=== PATIENT | female | born 1950 | race Two or more races ===

== ENCOUNTER 2018-10-20 14:43 | Inpatient (IN) | payer MEDICARE, MEDICAID ==
[~2018-10-20] VITALS: Ht 160 cm; Wt 68.6 kg
[2018-10-20 17:56] VITALS: BP 113/73
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
[2018-10-20] MEDS ORDERED: ACID1TAB13 PO (20:42)
[2018-10-20] MEDS ORDERED: FURO80TA72 PO (20:42)
[2018-10-20] MEDS ORDERED: MELA3TAB2 PO (20:42)
[2018-10-20] MEDS ORDERED: ERGO500027 PO (20:42)
[2018-10-20] MEDS ORDERED: MINE120C TP (20:42)
[2018-10-20] MEDS ORDERED: MIRT15TA3 PO (20:42)
[2018-10-20] MEDS ORDERED: INSU100I13 SQ (20:42)
[2018-10-20] MEDS ORDERED: LEVO750T31 PO (20:51)
[2018-10-20] MEDS ORDERED: SENN8.6T67 PO (21:32)
[2018-10-20] MEDS ORDERED: ZIPR20CA2 PO (21:32)
[2018-10-20] MEDS ORDERED: CEPH500C PO (21:32)
[2018-10-20] MEDS ORDERED: CLON0.5T PO (21:32)
[2018-10-20] MEDS ORDERED: LEVO88TA43 PO (21:32)
[2018-10-20] MEDS ORDERED: ACET325T9 PO (21:32)
[2018-10-20] MEDS ORDERED: POTA20TA4 PO (21:32)
[2018-10-20] MEDS ORDERED: SENNOSIDES 8.6 MG TABLET PO PRN (21:45)
[2018-10-20] MEDS ORDERED: ACETAMINOPHEN 325 MG TABLET PO PRN (22:30)
[2018-10-20] MEDS ORDERED: METHYL SALICYLATE/MENTHOL TOPICAL OINTMENT 29GM TUBE. TP PRN (22:30)
[2018-10-20] MEDS ORDERED: MAG HYDROX/AL HYDROX/SIMETH 30 ML ORAL.SUSP PO PRN (22:30)
[2018-10-20] MEDS ORDERED: MAGNESIUM HYDROXIDE 2,400 MG/30 ML ORAL.SUSP. PO PRN (22:30)
--- NOTE | 2018-10-20 22:32 | PDOC ---
Exam Note: Christopher Note: Please also refer to the separate dictated note~for this date of service dictated separately. Discussed the patient with Nursing staff reviewed the chart.~Reviewed interim history and current functioning. Reviewed vital signs,~ Labs/ Radiology~and current medications noted below. Continue current treatment with the changes noted in the dictated addendum note Assessment: Vital Signs: Vital Signs Date Time Temp Pulse Resp B/P (MAP) Pulse Ox O2 Delivery O2 Flow Rate FiO2 10/20/18 17:56 97.3 108 18 113/73 (86) 100 Labs: Laboratory Tests Test 10/20/18 19:50 Glucose Level 159 mg/dL (70-99) H Current Medications: Meds: Current Medications Acetaminophen (Tylenol) 650 mg PRN Q4HRS PRN PO PAIN; Start 10/20/18 at 21:45 Insulin Glargine (Lantus) 10 units QHS SQ ; Start 10/21/18 at 21:00 Levothyroxine Sodium (Synthroid) 88 mcg DAILY06 PO ; Start 10/21/18 at 06:00 Multi-Ingred Cream/Lotion/Oil/ Oint (Hydrocerin) 1 lori HS TP ; Start 10/21/18 at 21:00 Potassium Chloride (Klor-Con) 20 meq DAILY PO ; Start 10/21/18 at 09:00 Lactobacillus Rhamnosus (Culturelle) 1 cap DAILY PO ; Start 10/21/18 at 09:00 Cephalexin HCl (Keflex) 500 mg QID PO ; Start 10/21/18 at 09:00; Status UNV Vitamin D (Vitamin D3) 50,000 unit WEEKLY PO ; Start 10/27/18 at 09:00 Furosemide (Lasix) 80 mg DAILY PO ; Start 10/21/18 at 09:00 Levofloxacin (Levaquin) 750 mg DAILY PO ; Start 10/21/18 at 09:00; Status UNV Sennosides (Senna) 8.6 mg PRN BID PRN PO CONSTIPATION; Start 10/20/18 at 21:45 Clonazepam (KlonoPIN) 0.5 mg PRN Q6HRS PRN PO ANXIETY / AGITATION; Start at 21:45 Melatonin 6 mg HS PO ; Start 10/21/18 at 21:00 Mirtazapine (Remeron) 15 mg QHS PO ; Start 10/21/18 at 21:00 Ziprasidone (Geodon) 60 mg BID PO ; Start 10/21/18 at 09:00 Active Scripts Active Reported Cephalexin 500 Mg Capsule 500 Mg PO QID Geodon (Ziprasidone Hcl) 20 Mg Capsule 20 Mg PO BID Klor-Con M20 (Potassium Chloride) 20 Meq Tab.er.prt 20 Meq PO DAILY Levoxyl (Levothyroxine Sodium) 88 Mcg Tablet 88 Mcg PO DAILY Sennosides 8.6 Mg Tablet 8.6 Mg PO BID Tylenol (Acetaminophen) 325 Mg Tablet 650 Mg PO PRN Q4HRS PRN Klonopin (Clonazepam) 0.5 Mg Tablet 0.5 Mg PO PRN Q6HRS PRN Levaquin (Levofloxacin) 750 Mg Tablet 750 Mg PO DAILY Eucerin Creme (Mineral Oil/Petrolatum,White) 120 Gm Cream..g. 120 Gm TP HS Lasix (Furosemide) 80 Mg Tablet 80 Mg PO DAILY Floranex Tablet (Acidophilus/Bulgaricus) 1 Each Tablet 1 Each PO DAILY Vitamin D2 (Ergocalciferol (Vitamin D2)) 50,000 Unit Capsule 50,000 Unit PO WEEKLY Lantus Solostar (Insulin Glargine,Hum.rec.anlog) 100 Unit/1 Ml Insuln.pen 10 Unit SQ QHS Melatonin 3 Mg Tablet 6 Mg PO HS PRN Mirtazapine 15 Mg Tablet 15 Mg PO HS I have reviewed the current psychotropics carefully including drug interactions. Risk benefit ratio favors no change other than as noted in my dictated progress note. Diagnosis: Problems: (1) Anxiety disorder (2) Dementia in Alzheimer's disease with delusions (3) Schizoaffective disorder, chronic condition with acute exacerbation (4) Impulse control disorder FORTUNATO ECHEVARRIA MD Oct 20, 2018 22:32
[2018-10-20] MEDS: clonazePAM 0.5 MG TABLET PO PRN (23:41)
[2018-10-20] MEDS ORDERED: INSULIN GLARGINE 300 UNITS/3 ML INSULN.PEN. SQ ONE (23:49)
[2018-10-21] MEDS: INSULIN GLARGINE 300 UNITS/3 ML INSULN.PEN. SQ SCH ×2 (00:05→22:15)
[2018-10-21] MEDS: ACETAMINOPHEN 325 MG TABLET PO PRN (00:06)
[2018-10-21] MEDS: LEVOTHYROXINE 88 MCG TABLET PO SCH (05:52)
[2018-10-21] MEDS ORDERED: levoFLOXacin 750 MG TABLET PO SCH (06:00)
[2018-10-21 06:18] VITALS: BP 114/67
[2018-10-21] MEDS: ZIPRASIDONE 60 MG CAPSULE. PO SCH ×2 (09:22→19:49)
[2018-10-21] MEDS: CEPHALEXIN 250 MG CAPSULE PO SCH ×4 (09:22→19:50)
[2018-10-21] MEDS: LACTOBACILLUS RHAMNOSUS GG 1 CAPSULE. PO SCH (09:22)
[2018-10-21] MEDS: FUROSEMIDE 80 MG TABLET PO SCH (09:23)
[2018-10-21] MEDS: POTASSIUM CHLORIDE 20 MEQ TABLET.ER. PO SCH (09:23)
[2018-10-21 10:02] LABS: BASO % 1 % (0-3); EOS # 0.2 x10^3/uL (0.0-0.7); EOS % 4 % (0-3); HEMATOCRIT 30.9 % (36.0-47.0); LYMPH # 1.4 x10^3/uL (1.0-4.8); LYMPH % 27 % (24-48); MEAN CORPUSCULAR HEMOGLOBIN 31 pg (25-35); MEAN CORPUSCULAR HGB CONC 33 g/dL (31-37); MEAN CORPUSCULAR VOLUME 94 fL (79-100); MONO # 0.4 x10^3/uL (0.0-1.1); MONO % 7 % (0-9); NEUT # 3.4 x10^3uL (1.8-7.7); NEUT % 62 % (31-73); PLATELET COUNT 257 x10^3/uL (140-400); RED BLOOD COUNT 3.29 x10^6/uL (3.50-5.40); RED CELL DISTRIBUTION WIDTH 14.5 % (11.5-14.5); WHITE BLOOD COUNT 5.4 x10^3/uL (4.0-11.0)
[2018-10-21 10:15] LABS: ALBUMIN 2.6 g/dL (3.4-5.0); ALBUMIN/GLOBULIN RATIO 0.6 (1.0-1.7); CALCIUM 8.9 mg/dL (8.5-10.1); CREATININE 1.6 mg/dL (0.6-1.0); GFR 31.9; MAGNESIUM 1.7 mg/dL (1.8-2.4); POTASSIUM 4.4 mmol/L (3.5-5.1); TOTAL BILIRUBIN 0.2 mg/dL (0.2-1.0); TOTAL PROTEIN 6.9 g/dL (6.4-8.2)
[2018-10-21 14:47] LABS: THYROID STIM HORMONE (TSH) 9.258 uIU/mL (0.358-3.740)
[2018-10-21 16:20] VITALS: BP 124/84
[2018-10-21 19:14] LABS: THYROXINE 7.3 ug/dL (4.5-12.0)
[2018-10-21] MEDS: DIVALPROEX ER 500 MG TAB.ER.24H PO SCH (19:54)
[2018-10-21] MEDS: MIRTAZAPINE 15 MG TABLET PO SCH (19:54)
[2018-10-21] MEDS: MELATONIN 3 MG TABLET PO SCH (19:56)
[2018-10-21] MEDS ORDERED: INSULIN GLARGINE 300 UNITS/3 ML INSULN.PEN. SQ SCH (21:00)
[2018-10-21] MEDS: PENICILLIN G BENZATHINE LA 1,200,000 UNIT/2 ML DISP.SYRIN. IM SCH (22:14)
[2018-10-21] MEDS: MINERAL OIL/PETROLATUM TOPICAL CREAM 113GM JAR. TP SCH (22:16)
--- NOTE | 2018-10-21 22:38 | PDOC ---
Exam Note: Christopher Note: Please also refer to the separate dictated note~for this date of service dictated separately.~Patient seen individually. Discussed the patient with Nursing staff reviewed the chart.~Reviewed interim history and current functioning. Reviewed vital signs,~Labs/ Radiology~and current medications noted below. Continue current treatment with the changes noted in the dictated addendum note Assessment: Vital Signs: Vital Signs Date Time Temp Pulse Resp B/P (MAP) Pulse Ox O2 Delivery O2 Flow Rate FiO2 10/21/18 16:20 97.9 106 18 124/84 (97) 100 I&O Intake and Output 10/21/18 07:01 Intake Total 600 ml Balance 600 ml Intake Oral 600 ml Labs: Laboratory Tests Test 10/21/18 07:26 10/21/18 09:30 10/21/18 11:40 10/21/18 16:55 Glucose (Fingerstick) 67 mg/dL (70-99) L 147 mg/dL (70-99) H 90 mg/dL (70-99) White Blood Count 5.4 x10^3/uL (4.0-11.0) Red Blood Count 3.29 x10^6/uL (3.50-5.40) L Hemoglobin 10.0 g/dL (12.0-15.5) L Hematocrit 30.9 % (36.0-47.0) L Mean Corpuscular Volume 94 fL (79-100) Mean Corpuscular Hemoglobin 31 pg (25-35) Mean Corpuscular Hemoglobin Concent 33 g/dL (31-37) Red Cell Distribution Width 14.5 % (11.5-14.5) Platelet Count 257 x10^3/uL (140-400) Neutrophils (%) (Auto) 62 % (31-73) Lymphocytes (%) (Auto) 27 % (24-48) Monocytes (%) (Auto) 7 % (0-9) Eosinophils (%) (Auto) 4 % (0-3) H Basophils (%) (Auto) 1 % (0-3) Neutrophils # (Auto) 3.4 x10^3uL (1.8-7.7) Lymphocytes # (Auto) 1.4 x10^3/uL (1.0-4.8) Monocytes # (Auto) 0.4 x10^3/uL (0.0-1.1) Eosinophils # (Auto) 0.2 x10^3/uL (0.0-0.7) Basophils # (Auto) 0.0 x10^3/uL (0.0-0.2) Sodium Level 140 mmol/L (136-145) Potassium Level 4.4 mmol/L (3.5-5.1) Chloride Level 104 mmol/L (98-107) Carbon Dioxide Level 30 mmol/L (21-32) Anion Gap 6 (6-14) Blood Urea Nitrogen 28 mg/dL (7-20) H Creatinine 1.6 mg/dL (0.6-1.0) H Estimated GFR (Cockcroft-Gault) 31.9 BUN/Creatinine Ratio 18 (6-20) Glucose Level 164 mg/dL (70-99) H Calcium Level 8.9 mg/dL (8.5-10.1) Magnesium Level 1.7 mg/dL (1.8-2.4) L Iron Level 51 ug/dL (50-170) Total Iron Binding Capacity 287 ug/dL (250-450) Iron Saturation 18 % (15-34) Total Bilirubin 0.2 mg/dL (0.2-1.0) Aspartate Amino Transferase (AST) 31 U/L (15-37) Alanine Aminotransferase (ALT) 20 U/L (14-59) Alkaline Phosphatase 118 U/L (46-116) H Total Protein 6.9 g/dL (6.4-8.2) Albumin 2.6 g/dL (3.4-5.0) L Albumin/Globulin Ratio 0.6 (1.0-1.7) L Triglycerides Level 96 mg/dL (0-150) Cholesterol Level 101 mg/dL (0-200) LDL Cholesterol, Calculated 35 mg/dL (0-100) VLDL Cholesterol, Calculated 19 mg/dL (0-40) Non-HDL Cholesterol Calculated 54 mg/dL (0-129) HDL Cholesterol 47 mg/dL (40-60) Cholesterol/HDL Ratio 2.0 25-Hydroxy Vitamin D Total 48.8 ng/mL (30-100) Thyroid Stimulating Hormone (TSH) 9.258 uIU/mL (0.358-3.740) Thyroxine (T4) 7.3 ug/dL (4.5-12.0) Total Triiodothyronine (TT3) 110 ng/dL (71-180) Treponema pallidum Antibody Reactive (Nonreactive) Test 10/21/18 20:24 Glucose (Fingerstick) 220 mg/dL (70-99) H Current Medications: Meds: Current Medications Acetaminophen (Tylenol) 650 mg PRN Q4HRS PRN PO PAIN Last administered on 00:06; Start 10/20/18 at 21:45 Insulin Glargine (Lantus) 10 units QHS SQ ; Start 10/21/18 at 21:00; Stop at 21:00; Status DC Levothyroxine Sodium (Synthroid) 88 mcg DAILY06 PO Last administered on 05:52; Start 10/21/18 at 06:00 Multi-Ingred Cream/Lotion/Oil/ Oint (Hydrocerin) 1 lori HS TP Last administered on 10/21/18 22:16; Start 10/21/18 at 21:00 Potassium Chloride (Klor-Con) 20 meq DAILY PO Last administered on 10/21/18 09: 23; Start 10/21/18 at 09:00 Lactobacillus Rhamnosus (Culturelle) 1 cap DAILY PO Last administered on 09:22; Start 10/21/18 at 09:00 Cephalexin HCl (Keflex) 500 mg QID PO Last administered on 10/21/18 19:50; Start 10/21/18 at 09:00 Vitamin D (Vitamin D3) 50,000 unit WEEKLY PO ; Start 10/27/18 at 09:00 Furosemide (Lasix) 80 mg DAILY PO Last administered on 10/21/18 09:23; Start at 09:00 Levofloxacin (Levaquin) 750 mg DAILY06 PO Last administered on 10/21/18 05:52; Start 10/21/18 at 06:00; Stop 10/21/18 at 18:06; Status DC Sennosides (Senna) 8.6 mg PRN BID PRN PO CONSTIPATION; Start 10/20/18 at 21:45 Clonazepam (KlonoPIN) 0.5 mg PRN Q6HRS PRN PO ANXIETY / AGITATION Last administered on 10/20/18at 23:41; Start 10/20/18 at 21:45 Melatonin 6 mg HS PO Last administered on 10/21/18 19:56; Start 10/21/18 at 21: 00 Mirtazapine (Remeron) 15 mg QHS PO Last administered on 10/21/18 19:54; Start 10/21/18 at 21:00 Ziprasidone (Geodon) 60 mg BID PO Last administered on 10/21/18 19:49; Start at 09:00 Acetaminophen (Tylenol) 650 mg PRN Q6HRS PRN PO PAIN / TEMP; Start 10/20/18 at 22:30; Status UNV Multi-Ingredient Ointment (Analgesic [place]) 1 lori PRN QID PRN TP MUSCLE PAIN; Start 10/20/18 at 22:30 Al Hydroxide/Mg Hydroxide (Mylanta Plus Xs) 15 ml PRN AFTMEALHC PRN PO DYSPEPSIA; Start 10/20/18 at 22:30 Magnesium Hydroxide (Milk Of Magnesia) 2,400 mg PRN QHS PRN PO CONSTIPATION; Start 10/20/18 at 22:30 Insulin Glargine (Lantus) 10 units QHS SQ Last administered on 10/21/18at 22:15; Start 10/20/18 at 23:50 Insulin Glargine (Lantus) 300 units STK-MED ONCE SQ ; Start 10/20/18 at 23:49; Stop 10/20/18 at 23:51; Status DC Divalproex Sodium (Depakote Er) 500 mg QHS PO Last administered on 10/21/18 19: 54; Start 10/21/18 at 21:00 Penicillin G Benzathine (Bicillin L-A) 1,200,000 unit WEEKLY IM Last administered on 10/21/18at 22:14; Start 10/21/18 at 21:00 Active Scripts Active Reported Cephalexin 500 Mg Capsule 500 Mg PO QID Geodon (Ziprasidone Hcl) 20 Mg Capsule 20 Mg PO BID Klor-Con M20 (Potassium Chloride) 20 Meq Tab.er.prt 20 Meq PO DAILY Levoxyl (Levothyroxine Sodium) 88 Mcg Tablet 88 Mcg PO DAILY Sennosides 8.6 Mg Tablet 8.6 Mg PO BID Tylenol (Acetaminophen) 325 Mg Tablet 650 Mg PO PRN Q4HRS PRN Klonopin (Clonazepam) 0.5 Mg Tablet 0.5 Mg PO PRN Q6HRS PRN Levaquin (Levofloxacin) 750 Mg Tablet 750 Mg PO DAILY Eucerin Creme (Mineral Oil/Petrolatum,White) 120 Gm Cream..g. 120 Gm TP HS Lasix (Furosemide) 80 Mg Tablet 80 Mg PO DAILY Floranex Tablet (Acidophilus/Bulgaricus) 1 Each Tablet 1 Each PO DAILY Vitamin D2 (Ergocalciferol (Vitamin D2)) 50,000 Unit Capsule 50,000 Unit PO WEEKLY Lantus Solostar (Insulin Glargine,Hum.rec.anlog) 100 Unit/1 Ml Insuln.pen 10 Unit SQ QHS Melatonin 3 Mg Tablet 6 Mg PO HS PRN Mirtazapine 15 Mg Tablet 15 Mg PO HS I have reviewed the current psychotropics carefully including drug interactions. Risk benefit ratio favors no change other than as noted in my dictated progress note. Diagnosis: Problems: (1) Anxiety disorder (2) Dementia in Alzheimer's disease with delusions (3) Schizoaffective disorder, chronic condition with acute exacerbation (4) Impulse control disorder FORTUNATO ECHEVARRIA MD Oct 21, 2018 22:38
[2018-10-21 23:12] LABS: HEMOGLOBIN A1C 7.6 % (4.8-5.6)
[2018-10-22] MEDS: clonazePAM 0.5 MG TABLET PO PRN ×2 (00:32→23:49)
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
[2018-10-22 06:22] VITALS: BP 95/57
[2018-10-22] MEDS: LEVOTHYROXINE 88 MCG TABLET PO SCH (06:33)
[2018-10-22] MEDS: LACTOBACILLUS RHAMNOSUS GG 1 CAPSULE. PO SCH (09:10)
[2018-10-22] MEDS: POTASSIUM CHLORIDE 20 MEQ TABLET.ER. PO SCH ×2 (09:10→09:24)
[2018-10-22] MEDS: ZIPRASIDONE 60 MG CAPSULE. PO SCH (09:10)
[2018-10-22] MEDS: FUROSEMIDE 80 MG TABLET PO SCH (09:10)
[2018-10-22] MEDS: CEPHALEXIN 250 MG CAPSULE PO SCH ×4 (09:13→21:04)
[2018-10-22 17:13] VITALS: BP 111/61
[2018-10-22] MEDS: DIVALPROEX ER 500 MG TAB.ER.24H PO SCH (21:04)
[2018-10-22] MEDS: MELATONIN 3 MG TABLET PO SCH (21:04)
[2018-10-22] MEDS: MIRTAZAPINE 15 MG TABLET PO SCH (21:11)
[2018-10-22] MEDS: traZODone 100 MG TABLET. PO SCH (21:11)
[2018-10-22] MEDS: MINERAL OIL/PETROLATUM TOPICAL CREAM 113GM JAR. TP SCH (21:11)
[2018-10-22] MEDS: ZIPRASIDONE 80 MG CAPSULE. PO SCH (21:11)
[2018-10-22] MEDS: INSULIN GLARGINE 300 UNITS/3 ML INSULN.PEN. SQ SCH (21:13)
--- NOTE | 2018-10-22 22:56 | PDOC ---
Exam Note: Christopher Note: Please also refer to the separate dictated note~for this date of service dictated separately.~Patient seen individually. Discussed the patient with Nursing staff reviewed the chart.~Reviewed interim history and current functioning. Reviewed vital signs,~Labs/ Radiology~and current medications noted below. Continue current treatment with the changes noted in the dictated addendum note Assessment: Vital Signs: Vital Signs Date Time Temp Pulse Resp B/P (MAP) Pulse Ox O2 Delivery O2 Flow Rate FiO2 10/22/18 17:13 97.4 102 18 111/61 (78) 98 I&O Intake and Output 10/22/18 07:01 Intake Total 1200 ml Balance 1200 ml Intake Oral 1200 ml Labs: Laboratory Tests Test 10/22/18 07:39 10/22/18 12:04 10/22/18 17:13 10/22/18 19:24 Glucose (Fingerstick) 154 mg/dL (70-99) H 180 mg/dL (70-99) H 157 mg/dL (70-99) H 239 mg/dL (70-99) H Current Medications: Meds: Current Medications Acetaminophen (Tylenol) 650 mg PRN Q4HRS PRN PO PAIN Last administered on at 00:06; Start 10/20/18 at 21:45 Insulin Glargine (Lantus) 10 units QHS SQ ; Start 10/21/18 at 21:00; Stop at 21:00; Status DC Levothyroxine Sodium (Synthroid) 88 mcg DAILY06 PO Last administered on at 06:33; Start 10/21/18 at 06:00 Multi-Ingred Cream/Lotion/Oil/ Oint (Hydrocerin) 1 lori HS TP Last administered on 10/22/18at 21:11; Start 10/21/18 at 21:00 Potassium Chloride (Klor-Con) 20 meq DAILY PO Last administered on 10/21/18 09: 23; Start 10/21/18 at 09:00 Lactobacillus Rhamnosus (Culturelle) 1 cap DAILY PO Last administered on at 09:10; Start 10/21/18 at 09:00 Cephalexin HCl (Keflex) 500 mg QID PO Last administered on 10/22/18at 21:04; Start 10/21/18 at 09:00 Vitamin D (Vitamin D3) 50,000 unit WEEKLY PO ; Start 10/27/18 at 09:00 Furosemide (Lasix) 80 mg DAILY PO Last administered on 10/22/18 09:10; Start at 09:00 Levofloxacin (Levaquin) 750 mg DAILY06 PO Last administered on 10/21/18 05:52; Start 10/21/18 at 06:00; Stop 10/21/18 at 18:06; Status DC Sennosides (Senna) 8.6 mg PRN BID PRN PO CONSTIPATION; Start 10/20/18 at 21:45 Clonazepam (KlonoPIN) 0.5 mg PRN Q6HRS PRN PO ANXIETY / AGITATION Last administered on 10/22/18 00:32; Start 10/20/18 at 21:45 Melatonin 6 mg HS PO Last administered on 10/22/18 21:04; Start 10/21/18 at 21: 00 Mirtazapine (Remeron) 15 mg QHS PO Last administered on 10/22/18 21:11; Start 10/21/18 at 21:00 Ziprasidone (Geodon) 60 mg BID PO Last administered on 10/22/18 09:10; Start at 09:00; Stop 10/22/18 at 16:18; Status DC Acetaminophen (Tylenol) 650 mg PRN Q6HRS PRN PO PAIN / TEMP; Start 10/20/18 at 22:30; Status UNV Multi-Ingredient Ointment (Analgesic [place]) 1 lori PRN QID PRN TP MUSCLE PAIN; Start 10/20/18 at 22:30 Al Hydroxide/Mg Hydroxide (Mylanta Plus Xs) 15 ml PRN AFTMEALHC PRN PO DYSPEPSIA; Start 10/20/18 at 22:30 Magnesium Hydroxide (Milk Of Magnesia) 2,400 mg PRN QHS PRN PO CONSTIPATION; Start 10/20/18 at 22:30 Insulin Glargine (Lantus) 10 units QHS SQ Last administered on 10/22/18 21:13; Start 10/20/18 at 23:50 Insulin Glargine (Lantus) 300 units STK-MED ONCE SQ ; Start 10/20/18 at 23:49; Stop 10/20/18 at 23:51; Status DC Divalproex Sodium (Depakote Er) 500 mg QHS PO Last administered on 10/22/18 21: 04; Start 10/21/18 at 21:00 Penicillin G Benzathine (Bicillin L-A) 1,200,000 unit WEEKLY IM Last administered on 10/21/18 22:14; Start 10/21/18 at 21:00 Ziprasidone (Geodon) 80 mg BID PO Last administered on 10/22/18 21:11; Start at 21:00 Trazodone HCl (Desyrel) 100 mg QHS PO Last administered on 10/22/18 21:11; Start 10/22/18 at 21:00 Olanzapine (ZyPREXA ZYDIS) 5 mg PRN Q2HR PRN PO PSYCHOSIS/AGITATION Last administered on 10/22/18 18:36; Start 10/22/18 at 18:30 Active Scripts Active Reported Cephalexin 500 Mg Capsule 500 Mg PO QID Geodon (Ziprasidone Hcl) 20 Mg Capsule 20 Mg PO BID Klor-Con M20 (Potassium Chloride) 20 Meq Tab.er.prt 20 Meq PO DAILY Levoxyl (Levothyroxine Sodium) 88 Mcg Tablet 88 Mcg PO DAILY Sennosides 8.6 Mg Tablet 8.6 Mg PO BID Tylenol (Acetaminophen) 325 Mg Tablet 650 Mg PO PRN Q4HRS PRN Klonopin (Clonazepam) 0.5 Mg Tablet 0.5 Mg PO PRN Q6HRS PRN Levaquin (Levofloxacin) 750 Mg Tablet 750 Mg PO DAILY Eucerin Creme (Mineral Oil/Petrolatum,White) 120 Gm Cream..g. 120 Gm TP HS Lasix (Furosemide) 80 Mg Tablet 80 Mg PO DAILY Floranex Tablet (Acidophilus/Bulgaricus) 1 Each Tablet 1 Each PO DAILY Vitamin D2 (Ergocalciferol (Vitamin D2)) 50,000 Unit Capsule 50,000 Unit PO WEEKLY Lantus Solostar (Insulin Glargine,Hum.rec.anlog) 100 Unit/1 Ml Insuln.pen 10 Unit SQ QHS Melatonin 3 Mg Tablet 6 Mg PO HS PRN Mirtazapine 15 Mg Tablet 15 Mg PO HS I have reviewed the current psychotropics carefully including drug interactions. Risk benefit ratio favors no change other than as noted in my dictated progress note. Diagnosis: Problems: (1) Anxiety disorder (2) Dementia in Alzheimer's disease with delusions (3) Schizoaffective disorder, chronic condition with acute exacerbation (4) Impulse control disorder FORTUNATO ECHEVARRIA MD Oct 22, 2018 22:56
--- NOTE | 2018-10-22 23:27 | PN ---
DATE: 10/21/2018 PSYCHIATRIC PROGRESS NOTE This late entry, 10/21/2018, covers elements not covered in my initial note. SUBJECTIVE: I met with the patient in the evening, talked to the nursing staff several times during the day and reviewed information from [facility] where the patient was admitted. She was on Depakote at the time of discharge at 500 mg, Abilify 30 mg a day, Lamictal 25 mg a day together with Geodon 60 mg twice a day, Remeron 15 mg at bedtime, melatonin 3 mg at bedtime. However, at the [facility], she only remained on melatonin, Geodon, and Remeron. Somehow the Lamictal, Abilify and Depakote had been discontinued. Perhaps the Abilify was changed to Geodon. Nevertheless, we clarified all of this. She slept 3-1/4 hours previous night, remains quite delusional. Her daughter, Robina, shared that she was extremely labile, angry, and tearful. EKG: QTC was unremarkable and we will increase the Geodon to 80 mg twice a day. REVIEW OF SYSTEMS: Ambulation impaired, in wheelchair. No CV, , pulmonary, eye system symptoms on review. MENTAL STATUS EXAM: Oriented to herself and situation. Speech coherent, rapid at times. Abstraction fair, computation impaired, language function intact, attention span short. Mood and affect remains somewhat labile, anxious, quite psychotic, paranoid. LABORATORY DATA: Reviewed. IMPRESSION: Schizoaffective disorder, bipolar type, mixed with psychotic features; anxiety disorder, unspecified; impulse control disorder, unspecified. PLAN: Increase Geodon to 80 mg twice a day. Once QTC is unremarkable, start Depakote ER 500 mg p.o. at bedtime. Check CBC, CMP, valproic acid level in 3 days. Rest unchanged from initial note. FORTUNATO ECHEVARRIA MD DR: JACKIE/jason JOB#: [id number] / [id number]
[2018-10-23 05:57] VITALS: BP 125/66
[2018-10-23] MEDS: LEVOTHYROXINE 88 MCG TABLET PO SCH (06:10)
[2018-10-23] MEDS: LACTOBACILLUS RHAMNOSUS GG 1 CAPSULE. PO SCH (09:14)
[2018-10-23] MEDS: ZIPRASIDONE 80 MG CAPSULE. PO SCH ×2 (09:14→20:11)
[2018-10-23] MEDS: POTASSIUM CHLORIDE 20 MEQ TABLET.ER. PO SCH (09:15)
[2018-10-23] MEDS: FUROSEMIDE 80 MG TABLET PO SCH (09:17)
[2018-10-23] MEDS: CEPHALEXIN 250 MG CAPSULE PO SCH ×4 (09:18→20:09)
[2018-10-23] MEDS: ACETAMINOPHEN 325 MG TABLET PO PRN (09:22)
[2018-10-23 16:07] VITALS: BP 114/80
[2018-10-23] MEDS: MIRTAZAPINE 15 MG TABLET PO SCH (20:08)
[2018-10-23] MEDS: MELATONIN 3 MG TABLET PO SCH (20:09)
[2018-10-23] MEDS: DIVALPROEX ER 500 MG TAB.ER.24H PO SCH (20:09)
[2018-10-23] MEDS: traZODone 100 MG TABLET. PO SCH (20:09)
[2018-10-23] MEDS: MINERAL OIL/PETROLATUM TOPICAL CREAM 113GM JAR. TP SCH (20:11)
[2018-10-23] MEDS: INSULIN GLARGINE 300 UNITS/3 ML INSULN.PEN. SQ SCH (20:14)
--- NOTE | 2018-10-23 23:07 | PDOC ---
Exam Note: Christopher Note: Please also refer to the separate dictated note~for this date of service dictated separately.~Patient seen individually. Discussed the patient with Nursing staff reviewed the chart.~Reviewed interim history and current functioning. Reviewed vital signs,~Labs/ Radiology~and current medications noted below. Continue current treatment with the changes noted in the dictated addendum note Assessment: Vital Signs: Vital Signs Date Time Temp Pulse Resp B/P (MAP) Pulse Ox O2 Delivery O2 Flow Rate FiO2 10/23/18 16:07 98.4 100 16 114/80 (91) 99 I&O Intake and Output 10/23/18 07:01 Intake Total 1500 ml Balance 1500 ml Intake Oral 1500 ml # Voids 2 Labs: Laboratory Tests Test 10/23/18 00:21 10/23/18 07:27 10/23/18 11:55 10/23/18 16:15 Glucose (Fingerstick) 180 mg/dL (70-99) H 160 mg/dL (70-99) H 300 mg/dL (70-99) H 202 mg/dL (70-99) H Test 10/23/18 19:17 Glucose (Fingerstick) 286 mg/dL (70-99) H Current Medications: Meds: Current Medications Acetaminophen (Tylenol) 650 mg PRN Q4HRS PRN PO PAIN Last administered on at 09:22; Start 10/20/18 at 21:45 Insulin Glargine (Lantus) 10 units QHS SQ ; Start 10/21/18 at 21:00; Stop at 21:00; Status DC Levothyroxine Sodium (Synthroid) 88 mcg DAILY06 PO Last administered on at 06:10; Start 10/21/18 at 06:00 Multi-Ingred Cream/Lotion/Oil/ Oint (Hydrocerin) 1 lori HS TP Last administered on 10/23/18 20:11; Start 10/21/18 at 21:00 Potassium Chloride (Klor-Con) 20 meq DAILY PO Last administered on 10/23/18at 09: 15; Start 10/21/18 at 09:00 Lactobacillus Rhamnosus (Culturelle) 1 cap DAILY PO Last administered on at 09:14; Start 10/21/18 at 09:00 Cephalexin HCl (Keflex) 500 mg QID PO Last administered on 10/23/18 20:09; Start 10/21/18 at 09:00 Vitamin D (Vitamin D3) 50,000 unit WEEKLY PO ; Start 10/27/18 at 09:00 Furosemide (Lasix) 80 mg DAILY PO Last administered on 10/23/18 09:17; Start at 09:00 Levofloxacin (Levaquin) 750 mg DAILY06 PO Last administered on 10/21/18 05:52; Start 10/21/18 at 06:00; Stop 10/21/18 at 18:06; Status DC Sennosides (Senna) 8.6 mg PRN BID PRN PO CONSTIPATION; Start 10/20/18 at 21:45 Clonazepam (KlonoPIN) 0.5 mg PRN Q6HRS PRN PO ANXIETY / AGITATION Last administered on 10/22/18 23:49; Start 10/20/18 at 21:45 Melatonin 6 mg HS PO Last administered on 10/23/18 20:09; Start 10/21/18 at 21: 00 Mirtazapine (Remeron) 15 mg QHS PO Last administered on 10/23/18 20:08; Start 10/21/18 at 21:00 Ziprasidone (Geodon) 60 mg BID PO Last administered on 10/22/18 09:10; Start at 09:00; Stop 10/22/18 at 16:18; Status DC Acetaminophen (Tylenol) 650 mg PRN Q6HRS PRN PO PAIN / TEMP; Start 10/20/18 at 22:30; Status UNV Multi-Ingredient Ointment (Analgesic [place]) 1 lori PRN QID PRN TP MUSCLE PAIN; Start 10/20/18 at 22:30 Al Hydroxide/Mg Hydroxide (Mylanta Plus Xs) 15 ml PRN AFTMEALHC PRN PO DYSPEPSIA; Start 10/20/18 at 22:30 Magnesium Hydroxide (Milk Of Magnesia) 2,400 mg PRN QHS PRN PO CONSTIPATION; Start 10/20/18 at 22:30 Insulin Glargine (Lantus) 10 units QHS SQ Last administered on 10/23/18 20:14; Start 10/20/18 at 23:50 Insulin Glargine (Lantus) 300 units STK-MED ONCE SQ ; Start 10/20/18 at 23:49; Stop 10/20/18 at 23:51; Status DC Divalproex Sodium (Depakote Er) 500 mg QHS PO Last administered on 10/23/18 20: 09; Start 10/21/18 at 21:00 Penicillin G Benzathine (Bicillin L-A) 1,200,000 unit WEEKLY IM Last administered on 10/21/18 22:14; Start 10/21/18 at 21:00 Ziprasidone (Geodon) 80 mg BID PO Last administered on 10/23/18 20:11; Start at 21:00 Trazodone HCl (Desyrel) 100 mg QHS PO Last administered on 10/23/18 20:09; Start 10/22/18 at 21:00 Olanzapine (ZyPREXA ZYDIS) 5 mg PRN Q2HR PRN PO PSYCHOSIS/AGITATION Last administered on 10/22/18at 18:36; Start 10/22/18 at 18:30 Active Scripts Active Reported Cephalexin 500 Mg Capsule 500 Mg PO QID Geodon (Ziprasidone Hcl) 20 Mg Capsule 20 Mg PO BID Klor-Con M20 (Potassium Chloride) 20 Meq Tab.er.prt 20 Meq PO DAILY Levoxyl (Levothyroxine Sodium) 88 Mcg Tablet 88 Mcg PO DAILY Sennosides 8.6 Mg Tablet 8.6 Mg PO BID Tylenol (Acetaminophen) 325 Mg Tablet 650 Mg PO PRN Q4HRS PRN Klonopin (Clonazepam) 0.5 Mg Tablet 0.5 Mg PO PRN Q6HRS PRN Levaquin (Levofloxacin) 750 Mg Tablet 750 Mg PO DAILY Eucerin Creme (Mineral Oil/Petrolatum,White) 120 Gm Cream..g. 120 Gm TP HS Lasix (Furosemide) 80 Mg Tablet 80 Mg PO DAILY Floranex Tablet (Acidophilus/Bulgaricus) 1 Each Tablet 1 Each PO DAILY Vitamin D2 (Ergocalciferol (Vitamin D2)) 50,000 Unit Capsule 50,000 Unit PO WEEKLY Lantus Solostar (Insulin Glargine,Hum.rec.anlog) 100 Unit/1 Ml Insuln.pen 10 Unit SQ QHS Melatonin 3 Mg Tablet 6 Mg PO HS PRN Mirtazapine 15 Mg Tablet 15 Mg PO HS I have reviewed the current psychotropics carefully including drug interactions. Risk benefit ratio favors no change other than as noted in my dictated progress note. Diagnosis: Problems: (1) Anxiety disorder (2) Dementia in Alzheimer's disease with delusions (3) Schizoaffective disorder, chronic condition with acute exacerbation (4) Impulse control disorder FORTUNATO ECHEVARRIA MD Oct 23, 2018 23:07
--- NOTE | 2018-10-23 23:53 | PN ---
DATE: 10/22/2018 This late entry for 10/22/2018 covers elements not covered in my initial note. SUBJECTIVE: I met with the patient in the evening. The patient slept 2-1/4 hours previous night. She has been quite obsessed regarding her property being in a safe and attention seeking per nursing staff. She is having marked mood lability, grandiosity. EKGs, QTC interval is unremarkable. REVIEW OF SYSTEMS: Ambulation impaired, in wheelchair. I met with her on 2 or 3 separate occasions on rounds that she would come back with other questions, quite distractible, impulsive. No CV, , pulmonary, eye system symptoms on review. MENTAL STATUS EXAM: The patient is oriented to herself and situation. Speech coherent, rapid at times. Abstraction fair, computation impaired, language function intact, attention span short. Mood and affect quite labile, grandiose, psychotic, manic. LABORATORY DATA: Reviewed. IMPRESSION: Bipolar 1 disorder, mixed with psychotic features, schizoaffective disorder, bipolar type, mixed with psychotic features. Rest unchanged. PLAN: Continue Geodon 80 mg b.i.d., Remeron 15 mg at bedtime, Depakote ER started at 500 mg at bedtime. Check CBC, CMP, valproic acid level in 3 days. Maintain melatonin 3 mg at bedtime. I have reviewed records from [facility]. MAN Kati ECHEVARRIA MD DR: JACKIE/jason JOB#: [id number] / [id number]
[2018-10-23] MEDS: clonazePAM 0.5 MG TABLET PO PRN (23:58)
[2018-10-24] MEDS: LEVOTHYROXINE 88 MCG TABLET PO SCH (05:39)
[2018-10-24 06:37] VITALS: BP 108/61
[2018-10-24 07:56] LABS: BASO # 0.1 x10^3/uL (0.0-0.2); BASO % 1 % (0-3); EOS # 0.1 x10^3/uL (0.0-0.7); EOS % 1 % (0-3); HEMATOCRIT 28.9 % (36.0-47.0); HEMOGLOBIN 9.5 g/dL (12.0-15.5); LYMPH # 1.5 x10^3/uL (1.0-4.8); LYMPH % 18 % (24-48); MEAN CORPUSCULAR HEMOGLOBIN 30 pg (25-35); MEAN CORPUSCULAR HGB CONC 33 g/dL (31-37); MEAN CORPUSCULAR VOLUME 93 fL (79-100); MONO # 0.5 x10^3/uL (0.0-1.1); MONO % 6 % (0-9); NEUT % 74 % (31-73); PLATELET COUNT 240 x10^3/uL (140-400); RED BLOOD COUNT 3.11 x10^6/uL (3.50-5.40); RED CELL DISTRIBUTION WIDTH 14.1 % (11.5-14.5); WHITE BLOOD COUNT 8.1 x10^3/uL (4.0-11.0)
[2018-10-24 08:12] LABS: ALBUMIN 2.6 g/dL (3.4-5.0); ALBUMIN/GLOBULIN RATIO 0.6 (1.0-1.7); ALK PHOS 109 U/L (46-116); ALT (SGPT) 16 U/L (14-59); ANION GAP 4 (6-14); AST (SGOT) 18 U/L (15-37); BLOOD UREA NITROGEN 39 mg/dL (7-20); BUN/CREATININE RATIO 26 (6-20); CALCIUM 9.1 mg/dL (8.5-10.1); CARBON DIOXIDE 32 mmol/L (21-32); CHLORIDE 103 mmol/L (98-107); CREATININE 1.5 mg/dL (0.6-1.0); GFR 34.3; GLUCOSE 192 mg/dL (70-99); POTASSIUM 4.5 mmol/L (3.5-5.1); SODIUM 139 mmol/L (136-145); TOTAL BILIRUBIN 0.2 mg/dL (0.2-1.0); TOTAL PROTEIN 6.8 g/dL (6.4-8.2)
[2018-10-24 08:13] LABS: VAL ACID 33 mcg/mL (50-100)
[2018-10-24] MEDS: LACTOBACILLUS RHAMNOSUS GG 1 CAPSULE. PO SCH (09:00)
[2018-10-24] MEDS: FUROSEMIDE 80 MG TABLET PO SCH (09:00)
[2018-10-24] MEDS: POTASSIUM CHLORIDE 20 MEQ TABLET.ER. PO SCH (09:00)
[2018-10-24] MEDS: ZIPRASIDONE 80 MG CAPSULE. PO SCH ×2 (09:01→20:33)
[2018-10-24] MEDS: CEPHALEXIN 250 MG CAPSULE PO SCH ×4 (09:04→20:33)
[2018-10-24 17:00] VITALS: BP 122/76
[2018-10-24] MEDS: DIVALPROEX ER 500 MG TAB.ER.24H PO SCH (20:33)
[2018-10-24] MEDS: MELATONIN 3 MG TABLET PO SCH (20:33)
[2018-10-24] MEDS: ACETAMINOPHEN 325 MG TABLET PO PRN (20:33)
[2018-10-24] MEDS: MIRTAZAPINE 15 MG TABLET PO SCH (20:34)
[2018-10-24] MEDS: traZODone 100 MG TABLET. PO SCH (20:34)
[2018-10-24] MEDS: clonazePAM 0.5 MG TABLET PO PRN (20:35)
[2018-10-24] MEDS: BENZTROPINE MESYLATE 0.5 MG TABLET PO SCH (20:35)
[2018-10-24] MEDS: MINERAL OIL/PETROLATUM TOPICAL CREAM 113GM JAR. TP SCH (20:35)
[2018-10-24] MEDS: INSULIN GLARGINE 300 UNITS/3 ML INSULN.PEN. SQ SCH (20:37)
--- NOTE | 2018-10-24 22:31 | PDOC ---
Exam Note: Christopher Note: Please also refer to the separate dictated note~for this date of service dictated separately.~Patient seen individually. Discussed the patient with Nursing staff reviewed the chart.~Reviewed interim history and current functioning. Reviewed vital signs,~Labs/ Radiology~and current medications noted below. Continue current treatment with the changes noted in the dictated addendum note Assessment: Vital Signs: Vital Signs Date Time Temp Pulse Resp B/P (MAP) Pulse Ox O2 Delivery O2 Flow Rate FiO2 10/24/18 17:00 97.9 111 20 122/76 (91) 100 10/24/18 06:37 Room Air I&O Intake and Output 10/24/18 07:01 Intake Total 1500 ml Balance 1500 ml Intake Oral 1500 ml # Voids 2 Labs: Laboratory Tests Test 10/24/18 07:44 10/24/18 07:51 10/24/18 11:22 10/24/18 16:52 White Blood Count 8.1 x10^3/uL (4.0-11.0) Red Blood Count 3.11 x10^6/uL (3.50-5.40) L Hemoglobin 9.5 g/dL (12.0-15.5) L Hematocrit 28.9 % (36.0-47.0) L Mean Corpuscular Volume 93 fL (79-100) Mean Corpuscular Hemoglobin 30 pg (25-35) Mean Corpuscular Hemoglobin Concent 33 g/dL (31-37) Red Cell Distribution Width 14.1 % (11.5-14.5) Platelet Count 240 x10^3/uL (140-400) Neutrophils (%) (Auto) 74 % (31-73) H Lymphocytes (%) (Auto) 18 % (24-48) L Monocytes (%) (Auto) 6 % (0-9) Eosinophils (%) (Auto) 1 % (0-3) Basophils (%) (Auto) 1 % (0-3) Neutrophils # (Auto) 6.0 x10^3uL (1.8-7.7) Lymphocytes # (Auto) 1.5 x10^3/uL (1.0-4.8) Monocytes # (Auto) 0.5 x10^3/uL (0.0-1.1) Eosinophils # (Auto) 0.1 x10^3/uL (0.0-0.7) Basophils # (Auto) 0.1 x10^3/uL (0.0-0.2) Sodium Level 139 mmol/L (136-145) Potassium Level 4.5 mmol/L (3.5-5.1) Chloride Level 103 mmol/L (98-107) Carbon Dioxide Level 32 mmol/L (21-32) Anion Gap 4 (6-14) L Blood Urea Nitrogen 39 mg/dL (7-20) H Creatinine 1.5 mg/dL (0.6-1.0) H Estimated GFR (Cockcroft-Gault) 34.3 BUN/Creatinine Ratio 26 (6-20) H Glucose Level 192 mg/dL (70-99) H Calcium Level 9.1 mg/dL (8.5-10.1) Total Bilirubin 0.2 mg/dL (0.2-1.0) Aspartate Amino Transferase (AST) 18 U/L (15-37) Alanine Aminotransferase (ALT) 16 U/L (14-59) Alkaline Phosphatase 109 U/L (46-116) Total Protein 6.8 g/dL (6.4-8.2) Albumin 2.6 g/dL (3.4-5.0) L Albumin/Globulin Ratio 0.6 (1.0-1.7) L Valproic Acid Level 33 mcg/mL (50-100) L Valproic Acid Last Dose Date 10/23/2018 Valproic Acid Last Dose Time 2100 Glucose (Fingerstick) 185 mg/dL (70-99) H 230 mg/dL (70-99) H 247 mg/dL (70-99) H Test 10/24/18 19:13 Glucose (Fingerstick) 218 mg/dL (70-99) H Current Medications: Meds: Current Medications Acetaminophen (Tylenol) 650 mg PRN Q4HRS PRN PO PAIN Last administered on at 20:33; Start 10/20/18 at 21:45 Insulin Glargine (Lantus) 10 units QHS SQ ; Start 10/21/18 at 21:00; Stop at 21:00; Status DC Levothyroxine Sodium (Synthroid) 88 mcg DAILY06 PO Last administered on at 05:39; Start 10/21/18 at 06:00 Multi-Ingred Cream/Lotion/Oil/ Oint (Hydrocerin) 1 lori HS TP Last administered on 10/24/18 20:35; Start 10/21/18 at 21:00 Potassium Chloride (Klor-Con) 20 meq DAILY PO Last administered on 10/24/18 09: 00; Start 10/21/18 at 09:00 Lactobacillus Rhamnosus (Culturelle) 1 cap DAILY PO Last administered on 09:00; Start 10/21/18 at 09:00 Cephalexin HCl (Keflex) 500 mg QID PO Last administered on 10/24/18 20:33; Start 10/21/18 at 09:00 Vitamin D (Vitamin D3) 50,000 unit WEEKLY PO ; Start 10/27/18 at 09:00 Furosemide (Lasix) 80 mg DAILY PO Last administered on 10/24/18 09:00; Start at 09:00 Levofloxacin (Levaquin) 750 mg DAILY06 PO Last administered on 10/21/18 05:52; Start 10/21/18 at 06:00; Stop 10/21/18 at 18:06; Status DC Sennosides (Senna) 8.6 mg PRN BID PRN PO CONSTIPATION Last administered on 09:26; Start 10/20/18 at 21:45 Clonazepam (KlonoPIN) 0.5 mg PRN Q6HRS PRN PO ANXIETY / AGITATION Last administered on 10/24/18 20:35; Start 10/20/18 at 21:45 Melatonin 6 mg HS PO Last administered on 10/24/18 20:33; Start 10/21/18 at 21: 00 Mirtazapine (Remeron) 15 mg QHS PO Last administered on 10/24/18 20:34; Start 10/21/18 at 21:00 Ziprasidone (Geodon) 60 mg BID PO Last administered on 10/22/18 09:10; Start at 09:00; Stop 10/22/18 at 16:18; Status DC Acetaminophen (Tylenol) 650 mg PRN Q6HRS PRN PO PAIN / TEMP; Start 10/20/18 at 22:30; Status UNV Multi-Ingredient Ointment (Analgesic [place]) 1 lori PRN QID PRN TP MUSCLE PAIN; Start 10/20/18 at 22:30 Al Hydroxide/Mg Hydroxide (Mylanta Plus Xs) 15 ml PRN AFTMEALHC PRN PO DYSPEPSIA; Start 10/20/18 at 22:30 Magnesium Hydroxide (Milk Of Magnesia) 2,400 mg PRN QHS PRN PO CONSTIPATION; Start 10/20/18 at 22:30 Insulin Glargine (Lantus) 10 units QHS SQ Last administered on 10/23/18 20:14; Start 10/20/18 at 23:50; Stop 10/24/18 at 14:52; Status DC Insulin Glargine (Lantus) 300 units STK-MED ONCE SQ ; Start 10/20/18 at 23:49; Stop 10/20/18 at 23:51; Status DC Divalproex Sodium (Depakote Er) 500 mg QHS PO Last administered on 10/23/18 20: 09; Start 10/21/18 at 21:00; Stop 10/24/18 at 17:07; Status DC Penicillin G Benzathine (Bicillin L-A) 1,200,000 unit WEEKLY IM Last administered on 10/21/18 22:14; Start 10/21/18 at 21:00 Ziprasidone (Geodon) 80 mg BID PO Last administered on 10/24/18 20:33; Start at 21:00 Trazodone HCl (Desyrel) 100 mg QHS PO Last administered on 10/24/18 20:34; Start 10/22/18 at 21:00 Olanzapine (ZyPREXA ZYDIS) 5 mg PRN Q2HR PRN PO PSYCHOSIS/AGITATION Last administered on 10/22/18 18:36; Start 10/22/18 at 18:30 Insulin Glargine (Lantus) 15 units QHS SQ Last administered on 10/24/18 20:37; Start 10/24/18 at 21:00 Divalproex Sodium (Depakote Er) 1,000 mg QHS PO Last administered on 10/24/18 20:33; Start 10/24/18 at 21:00 Benztropine Mesylate (Cogentin) 0.5 mg QHS PO Last administered on 2/7/19at 20: 35; Start 10/24/18 at 21:00 Active Scripts Active Reported Cephalexin 500 Mg Capsule 500 Mg PO QID Geodon (Ziprasidone Hcl) 20 Mg Capsule 20 Mg PO BID Klor-Con M20 (Potassium Chloride) 20 Meq Tab.er.prt 20 Meq PO DAILY Levoxyl (Levothyroxine Sodium) 88 Mcg Tablet 88 Mcg PO DAILY Sennosides 8.6 Mg Tablet 8.6 Mg PO BID Tylenol (Acetaminophen) 325 Mg Tablet 650 Mg PO PRN Q4HRS PRN Klonopin (Clonazepam) 0.5 Mg Tablet 0.5 Mg PO PRN Q6HRS PRN Levaquin (Levofloxacin) 750 Mg Tablet 750 Mg PO DAILY Eucerin Creme (Mineral Oil/Petrolatum,White) 120 Gm Cream..g. 120 Gm TP HS Lasix (Furosemide) 80 Mg Tablet 80 Mg PO DAILY Floranex Tablet (Acidophilus/Bulgaricus) 1 Each Tablet 1 Each PO DAILY Vitamin D2 (Ergocalciferol (Vitamin D2)) 50,000 Unit Capsule 50,000 Unit PO WEEKLY Lantus Solostar (Insulin Glargine,Hum.rec.anlog) 100 Unit/1 Ml Insuln.pen 10 Unit SQ QHS Melatonin 3 Mg Tablet 6 Mg PO HS PRN Mirtazapine 15 Mg Tablet 15 Mg PO HS I have reviewed the current psychotropics carefully including drug interactions. Risk benefit ratio favors no change other than as noted in my dictated progress note. Diagnosis: Problems: (1) Anxiety disorder (2) Dementia in Alzheimer's disease with delusions (3) Schizoaffective disorder, chronic condition with acute exacerbation (4) Impulse control disorder FORTUNATO ECHEVARRIA MD Oct 24, 2018 22:31
[2018-10-24] MEDS: diphenhydrAMINE HCL 25 MG CAPSULE PO PRN (23:46)
[2018-10-25] MEDS: LEVOTHYROXINE 88 MCG TABLET PO SCH (05:57)
[2018-10-25] MEDS: diphenhydrAMINE HCL 25 MG CAPSULE PO PRN ×2 (05:57→10:34)
[2018-10-25 05:58] VITALS: BP 122/72
[2018-10-25] MEDS: ZIPRASIDONE 80 MG CAPSULE. PO SCH ×2 (08:30→20:24)
[2018-10-25] MEDS: CEPHALEXIN 250 MG CAPSULE PO SCH ×4 (08:30→20:24)
[2018-10-25] MEDS: FUROSEMIDE 80 MG TABLET PO SCH (08:30)
[2018-10-25] MEDS: POTASSIUM CHLORIDE 20 MEQ TABLET.ER. PO SCH (08:30)
[2018-10-25] MEDS: LACTOBACILLUS RHAMNOSUS GG 1 CAPSULE. PO SCH (08:30)
[2018-10-25] MEDS: ACETAMINOPHEN 325 MG TABLET PO PRN (08:42)
[2018-10-25 16:54] VITALS: BP 115/80
[2018-10-25] MEDS: clonazePAM 0.5 MG TABLET PO PRN (17:44)
--- NOTE | 2018-10-25 20:19 | PN ---
DATE: 10/23/2018 This late entry for 10/23/2018 covers elements not covered in my initial note. SUBJECTIVE: I met with the patient in the evening and staffed at treatment team meeting earlier in the day. The patient slept 5 hours previous night. She remains quite grandiose, delusional, compliant with medications. Valproic acid level is 33 on Depakote ER 500 mg at bedtime. She complains of drooling, impaired ambulation, in wheelchair. REVIEW OF SYSTEMS: No CV, , pulmonary, eye system symptoms on review. Reliability poor. MENTAL STATUS EXAM: Oriented to herself and situation. Speech coherent, rapid at times. Abstraction fair, computation impaired, language function intact, attention span short. Mood and affect remain somewhat grandiose, labile. No active suicidal or homicidal ideation. Attention span short. Language function intact. LABORATORY DATA: Reviewed. IMPRESSION: Schizoaffective disorder, bipolar type, mixed with psychotic features; anxiety disorder, unspecified; impulse control disorder, unspecified. PLAN: Increase the Depakote ER from 500 mg at bedtime to 1000 mg at bedtime. Check CBC, CMP, valproic acid level in 3 days to reach therapeutic level. Start Cogentin 0.5 mg at bedtime for her drooling. Rest unchanged from initial note. MAN Kati ECHEVARRIA MD DR: JACKIE/jason JOB#: [id number] / [id number]
[2018-10-25] MEDS: DIVALPROEX ER 500 MG TAB.ER.24H PO SCH (20:24)
[2018-10-25] MEDS: MELATONIN 3 MG TABLET PO SCH (20:24)
[2018-10-25] MEDS: BENZTROPINE MESYLATE 0.5 MG TABLET PO SCH (20:24)
[2018-10-25] MEDS: MIRTAZAPINE 15 MG TABLET PO SCH (20:25)
[2018-10-25] MEDS: MINERAL OIL/PETROLATUM TOPICAL CREAM 113GM JAR. TP SCH (20:26)
[2018-10-25] MEDS: INSULIN GLARGINE 300 UNITS/3 ML INSULN.PEN. SQ SCH (20:27)
[2018-10-25] MEDS: traZODone 150 MG TABLET. PO SCH (20:28)
--- NOTE | 2018-10-25 22:37 | PN ---
DATE: 10/24/2018 This late entry for 10/24/2018 covers elements not covered in my initial note. SUBJECTIVE: I met with the patient in the evening. The patient slept 5 hours previous night. She remains extremely grandiose, manic, delusional, compliant with medications. Valproic acid level is 33 on Depakote ER 500 mg at bedtime. She has had some drooling. REVIEW OF SYSTEMS: Other than that, impaired ambulation, in wheelchair. No CV, , pulmonary, eye system symptoms on review. MENTAL STATUS EXAM: Oriented to herself and situation. Speech coherent, rapid at times. Abstraction fair, computation impaired, language function intact. Attention span short. She was constantly asking me for [employer] food and quite grandiose about all of that. LABORATORY DATA: Reviewed. IMPRESSION: Bipolar 1 disorder, mixed with psychotic features, schizoaffective disorder, bipolar type, mixed with psychotic features. Rest unchanged. PLAN: Increase Depakote ER to 1000 mg p.o. at bedtime. Check CBC, CMP, valproic acid level in 3 days. Rest unchanged from initial note. MAN Kati ECHEVARRIA MD DR: JACKIE/jason JOB#: [id number] / [id number]
--- NOTE | 2018-10-25 22:43 | PDOC ---
Exam Note: Christopher Note: Please also refer to the separate dictated note~for this date of service dictated separately.~Patient seen individually. Discussed the patient with Nursing staff reviewed the chart.~Reviewed interim history and current functioning. Reviewed vital signs,~Labs/ Radiology~and current medications noted below. Continue current treatment with the changes noted in the dictated addendum note Assessment: Vital Signs: Vital Signs Date Time Temp Pulse Resp B/P (MAP) Pulse Ox O2 Delivery O2 Flow Rate FiO2 10/25/18 16:54 98.4 109 20 115/80 (92) 96 Nasal Cannula I&O Intake and Output 10/25/18 07:01 Intake Total 960 ml Balance 960 ml Intake Oral 960 ml # Bowel Movements 2 Labs: Laboratory Tests Test 10/25/18 07:01 10/25/18 11:29 10/25/18 16:51 10/25/18 19:20 Glucose (Fingerstick) 191 mg/dL (70-99) H 196 mg/dL (70-99) H 162 mg/dL (70-99) H 179 mg/dL (70-99) H Current Medications: Meds: Current Medications Acetaminophen (Tylenol) 650 mg PRN Q4HRS PRN PO PAIN Last administered on 08:42; Start 10/20/18 at 21:45 Insulin Glargine (Lantus) 10 units QHS SQ ; Start 10/21/18 at 21:00; Stop at 21:00; Status DC Levothyroxine Sodium (Synthroid) 88 mcg DAILY06 PO Last administered on 05:57; Start 10/21/18 at 06:00 Multi-Ingred Cream/Lotion/Oil/ Oint (Hydrocerin) 1 lori HS TP Last administered on 10/25/18 20:26; Start 10/21/18 at 21:00 Potassium Chloride (Klor-Con) 20 meq DAILY PO Last administered on 10/25/18 08: 30; Start 10/21/18 at 09:00 Lactobacillus Rhamnosus (Culturelle) 1 cap DAILY PO Last administered on 08:30; Start 10/21/18 at 09:00 Cephalexin HCl (Keflex) 500 mg QID PO Last administered on 10/25/18 20:24; Start 10/21/18 at 09:00 Vitamin D (Vitamin D3) 50,000 unit WEEKLY PO ; Start 10/27/18 at 09:00 Furosemide (Lasix) 80 mg DAILY PO Last administered on 10/25/18 08:30; Start at 09:00 Levofloxacin (Levaquin) 750 mg DAILY06 PO Last administered on 10/21/18 05:52; Start 10/21/18 at 06:00; Stop 10/21/18 at 18:06; Status DC Sennosides (Senna) 8.6 mg PRN BID PRN PO CONSTIPATION Last administered on 09:26; Start 10/20/18 at 21:45 Clonazepam (KlonoPIN) 0.5 mg PRN Q6HRS PRN PO ANXIETY / AGITATION Last administered on 10/25/18 17:44; Start 10/20/18 at 21:45 Melatonin 6 mg HS PO Last administered on 10/25/18 20:24; Start 10/21/18 at 21: 00 Mirtazapine (Remeron) 15 mg QHS PO Last administered on 10/25/18 20:25; Start 10/21/18 at 21:00 Ziprasidone (Geodon) 60 mg BID PO Last administered on 10/22/18 09:10; Start at 09:00; Stop 10/22/18 at 16:18; Status DC Acetaminophen (Tylenol) 650 mg PRN Q6HRS PRN PO PAIN / TEMP; Start 10/20/18 at 22:30; Status UNV Multi-Ingredient Ointment (Analgesic [place]) 1 lori PRN QID PRN TP MUSCLE PAIN; Start 10/20/18 at 22:30 Al Hydroxide/Mg Hydroxide (Mylanta Plus Xs) 15 ml PRN AFTMEALHC PRN PO DYSPEPSIA; Start 10/20/18 at 22:30 Magnesium Hydroxide (Milk Of Magnesia) 2,400 mg PRN QHS PRN PO CONSTIPATION; Start 10/20/18 at 22:30 Insulin Glargine (Lantus) 10 units QHS SQ Last administered on 10/23/18 20:14; Start 10/20/18 at 23:50; Stop 10/24/18 at 14:52; Status DC Insulin Glargine (Lantus) 300 units STK-MED ONCE SQ ; Start 10/20/18 at 23:49; Stop 10/20/18 at 23:51; Status DC Divalproex Sodium (Depakote Er) 500 mg QHS PO Last administered on 10/23/18 20: 09; Start 10/21/18 at 21:00; Stop 10/24/18 at 17:07; Status DC Penicillin G Benzathine (Bicillin L-A) 1,200,000 unit WEEKLY IM Last administered on 10/21/18 22:14; Start 10/21/18 at 21:00 Ziprasidone (Geodon) 80 mg BID PO Last administered on 10/25/18 20:24; Start at 21:00 Trazodone HCl (Desyrel) 100 mg QHS PO Last administered on 10/24/18 20:34; Start 10/22/18 at 21:00; Stop 10/25/18 at 16:41; Status DC Olanzapine (ZyPREXA ZYDIS) 5 mg PRN Q2HR PRN PO PSYCHOSIS/AGITATION Last administered on 10/22/18 18:36; Start 10/22/18 at 18:30 Insulin Glargine (Lantus) 15 units QHS SQ Last administered on 10/25/18 20:27; Start 10/24/18 at 21:00 Divalproex Sodium (Depakote Er) 1,000 mg QHS PO Last administered on 10/25/18 20:24; Start 10/24/18 at 21:00 Benztropine Mesylate (Cogentin) 0.5 mg QHS PO Last administered on 10/25/18 20: 24; Start 10/24/18 at 21:00 Diphenhydramine HCl (Benadryl) 25 mg PRN Q4HRS PRN PO ITCHING Last administered on 10/25/18 10:34; Start 10/24/18 at 23:30 Trazodone HCl (Desyrel) 150 mg QHS PO Last administered on 10/25/18 20:28; Start 10/25/18 at 21:00 Active Scripts Active Reported Cephalexin 500 Mg Capsule 500 Mg PO QID Geodon (Ziprasidone Hcl) 20 Mg Capsule 20 Mg PO BID Klor-Con M20 (Potassium Chloride) 20 Meq Tab.er.prt 20 Meq PO DAILY Levoxyl (Levothyroxine Sodium) 88 Mcg Tablet 88 Mcg PO DAILY Sennosides 8.6 Mg Tablet 8.6 Mg PO BID Tylenol (Acetaminophen) 325 Mg Tablet 650 Mg PO PRN Q4HRS PRN Klonopin (Clonazepam) 0.5 Mg Tablet 0.5 Mg PO PRN Q6HRS PRN Levaquin (Levofloxacin) 750 Mg Tablet 750 Mg PO DAILY Eucerin Creme (Mineral Oil/Petrolatum,White) 120 Gm Cream..g. 120 Gm TP HS Lasix (Furosemide) 80 Mg Tablet 80 Mg PO DAILY Floranex Tablet (Acidophilus/Bulgaricus) 1 Each Tablet 1 Each PO DAILY Vitamin D2 (Ergocalciferol (Vitamin D2)) 50,000 Unit Capsule 50,000 Unit PO WEEKLY Lantus Solostar (Insulin Glargine,Hum.rec.anlog) 100 Unit/1 Ml Insuln.pen 10 Unit SQ QHS Melatonin 3 Mg Tablet 6 Mg PO HS PRN Mirtazapine 15 Mg Tablet 15 Mg PO HS I have reviewed the current psychotropics carefully including drug interactions. Risk benefit ratio favors no change other than as noted in my dictated progress note. Diagnosis: Problems: (1) Anxiety disorder (2) Dementia in Alzheimer's disease with delusions (3) Schizoaffective disorder, chronic condition with acute exacerbation (4) Impulse control disorder FORTUNATO ECHEVARRIA MD Oct 25, 2018 22:43
[2018-10-26] MEDS: LEVOTHYROXINE 88 MCG TABLET PO SCH (04:53)
[2018-10-26 06:33] VITALS: BP 128/82
[2018-10-26] MEDS: POTASSIUM CHLORIDE 20 MEQ TABLET.ER. PO SCH (08:22)
[2018-10-26] MEDS: LACTOBACILLUS RHAMNOSUS GG 1 CAPSULE. PO SCH (08:22)
[2018-10-26] MEDS: ACETAMINOPHEN 325 MG TABLET PO PRN (08:22)
[2018-10-26] MEDS: FUROSEMIDE 80 MG TABLET PO SCH (08:22)
[2018-10-26] MEDS: ZIPRASIDONE 80 MG CAPSULE. PO SCH ×2 (08:22→20:30)
[2018-10-26] MEDS: CEPHALEXIN 250 MG CAPSULE PO SCH ×4 (08:22→20:31)
[2018-10-26 16:50] VITALS: BP 128/77
[2018-10-26] MEDS: traZODone 150 MG TABLET. PO SCH (20:30)
[2018-10-26] MEDS: BENZTROPINE MESYLATE 0.5 MG TABLET PO SCH (20:31)
[2018-10-26] MEDS: MELATONIN 3 MG TABLET PO SCH (20:31)
[2018-10-26] MEDS: DIVALPROEX ER 500 MG TAB.ER.24H PO SCH (20:31)
[2018-10-26] MEDS: MIRTAZAPINE 15 MG TABLET PO SCH (20:31)
[2018-10-26] MEDS: INSULIN GLARGINE 300 UNITS/3 ML INSULN.PEN. SQ SCH ×2 (20:32→20:45)
[2018-10-26] MEDS: MINERAL OIL/PETROLATUM TOPICAL CREAM 113GM JAR. TP SCH (20:32)
--- NOTE | 2018-10-26 22:03 | PDOC ---
Exam Note: Christopher Note: Please also refer to the separate dictated note~for this date of service dictated separately.~Patient seen individually. Discussed the patient with Nursing staff reviewed the chart.~Reviewed interim history and current functioning. Reviewed vital signs,~Labs/ Radiology~and current medications noted below. Continue current treatment with the changes noted in the dictated addendum note Assessment: Vital Signs: Vital Signs Date Time Temp Pulse Resp B/P (MAP) Pulse Ox O2 Delivery O2 Flow Rate FiO2 10/26/18 16:50 97.6 88 20 128/77 (94) 95 10/26/18 06:33 Nasal Cannula I&O Intake and Output 10/26/18 07:01 Intake Total 1405 ml Balance 1405 ml Intake Oral 1405 ml Labs: Laboratory Tests Test 10/26/18 07:02 10/26/18 11:37 10/26/18 16:40 10/26/18 19:13 Glucose (Fingerstick) 163 mg/dL (70-99) H 216 mg/dL (70-99) H 151 mg/dL (70-99) H 120 mg/dL (70-99) H Current Medications: Meds: Current Medications Acetaminophen (Tylenol) 650 mg PRN Q4HRS PRN PO PAIN Last administered on 08:22; Start 10/20/18 at 21:45 Insulin Glargine (Lantus) 10 units QHS SQ ; Start 10/21/18 at 21:00; Stop at 21:00; Status DC Levothyroxine Sodium (Synthroid) 88 mcg DAILY06 PO Last administered on 04:53; Start 10/21/18 at 06:00 Multi-Ingred Cream/Lotion/Oil/ Oint (Hydrocerin) 1 lori HS TP Last administered on 10/26/18 20:32; Start 10/21/18 at 21:00 Potassium Chloride (Klor-Con) 20 meq DAILY PO Last administered on 10/26/18 08: 22; Start 10/21/18 at 09:00 Lactobacillus Rhamnosus (Culturelle) 1 cap DAILY PO Last administered on 08:22; Start 10/21/18 at 09:00 Cephalexin HCl (Keflex) 500 mg QID PO Last administered on 10/26/18 20:31; Start 10/21/18 at 09:00 Vitamin D (Vitamin D3) 50,000 unit WEEKLY PO ; Start 10/27/18 at 09:00 Furosemide (Lasix) 80 mg DAILY PO Last administered on 10/26/18 08:22; Start at 09:00 Levofloxacin (Levaquin) 750 mg DAILY06 PO Last administered on 10/21/18 05:52; Start 10/21/18 at 06:00; Stop 10/21/18 at 18:06; Status DC Sennosides (Senna) 8.6 mg PRN BID PRN PO CONSTIPATION Last administered on 09:26; Start 10/20/18 at 21:45 Clonazepam (KlonoPIN) 0.5 mg PRN Q6HRS PRN PO ANXIETY / AGITATION Last administered on 10/25/18 17:44; Start 10/20/18 at 21:45 Melatonin 6 mg HS PO Last administered on 10/26/18 20:31; Start 10/21/18 at 21: 00 Mirtazapine (Remeron) 15 mg QHS PO Last administered on 10/26/18 20:31; Start 10/21/18 at 21:00 Ziprasidone (Geodon) 60 mg BID PO Last administered on 10/22/18 09:10; Start at 09:00; Stop 10/22/18 at 16:18; Status DC Acetaminophen (Tylenol) 650 mg PRN Q6HRS PRN PO PAIN / TEMP; Start 10/20/18 at 22:30; Status UNV Multi-Ingredient Ointment (Analgesic [place]) 1 lori PRN QID PRN TP MUSCLE PAIN; Start 10/20/18 at 22:30 Al Hydroxide/Mg Hydroxide (Mylanta Plus Xs) 15 ml PRN AFTMEALHC PRN PO DYSPEPSIA; Start 10/20/18 at 22:30 Magnesium Hydroxide (Milk Of Magnesia) 2,400 mg PRN QHS PRN PO CONSTIPATION; Start 10/20/18 at 22:30 Insulin Glargine (Lantus) 10 units QHS SQ Last administered on 10/23/18 20:14; Start 10/20/18 at 23:50; Stop 10/24/18 at 14:52; Status DC Insulin Glargine (Lantus) 300 units STK-MED ONCE SQ ; Start 10/20/18 at 23:49; Stop 10/20/18 at 23:51; Status DC Divalproex Sodium (Depakote Er) 500 mg QHS PO Last administered on 10/23/18 20: 09; Start 10/21/18 at 21:00; Stop 10/24/18 at 17:07; Status DC Penicillin G Benzathine (Bicillin L-A) 1,200,000 unit WEEKLY IM Last administered on 10/21/18 22:14; Start 10/21/18 at 21:00 Ziprasidone (Geodon) 80 mg BID PO Last administered on 10/26/18 20:30; Start at 21:00 Trazodone HCl (Desyrel) 100 mg QHS PO Last administered on 10/24/18 20:34; Start 10/22/18 at 21:00; Stop 10/25/18 at 16:41; Status DC Olanzapine (ZyPREXA ZYDIS) 5 mg PRN Q2HR PRN PO PSYCHOSIS/AGITATION Last administered on 10/22/18 18:36; Start 10/22/18 at 18:30 Insulin Glargine (Lantus) 15 units QHS SQ Last administered on 10/26/18 20:32; Start 10/24/18 at 21:00 Divalproex Sodium (Depakote Er) 1,000 mg QHS PO Last administered on 10/26/18 20:31; Start 10/24/18 at 21:00 Benztropine Mesylate (Cogentin) 0.5 mg QHS PO Last administered on 10/26/18 20: 31; Start 10/24/18 at 21:00 Diphenhydramine HCl (Benadryl) 25 mg PRN Q4HRS PRN PO ITCHING Last administered on 10/25/18 10:34; Start 10/24/18 at 23:30 Trazodone HCl (Desyrel) 150 mg QHS PO Last administered on 10/26/18 20:30; Start 10/25/18 at 21:00 Active Scripts Active Reported Cephalexin 500 Mg Capsule 500 Mg PO QID Geodon (Ziprasidone Hcl) 20 Mg Capsule 20 Mg PO BID Klor-Con M20 (Potassium Chloride) 20 Meq Tab.er.prt 20 Meq PO DAILY Levoxyl (Levothyroxine Sodium) 88 Mcg Tablet 88 Mcg PO DAILY Sennosides 8.6 Mg Tablet 8.6 Mg PO BID Tylenol (Acetaminophen) 325 Mg Tablet 650 Mg PO PRN Q4HRS PRN Klonopin (Clonazepam) 0.5 Mg Tablet 0.5 Mg PO PRN Q6HRS PRN Levaquin (Levofloxacin) 750 Mg Tablet 750 Mg PO DAILY Eucerin Creme (Mineral Oil/Petrolatum,White) 120 Gm Cream..g. 120 Gm TP HS Lasix (Furosemide) 80 Mg Tablet 80 Mg PO DAILY Floranex Tablet (Acidophilus/Bulgaricus) 1 Each Tablet 1 Each PO DAILY Vitamin D2 (Ergocalciferol (Vitamin D2)) 50,000 Unit Capsule 50,000 Unit PO WEEKLY Lantus Solostar (Insulin Glargine,Hum.rec.anlog) 100 Unit/1 Ml Insuln.pen 10 Unit SQ QHS Melatonin 3 Mg Tablet 6 Mg PO HS PRN Mirtazapine 15 Mg Tablet 15 Mg PO HS I have reviewed the current psychotropics carefully including drug interactions. Risk benefit ratio favors no change other than as noted in my dictated progress note. Diagnosis: Problems: (1) Anxiety disorder (2) Dementia in Alzheimer's disease with delusions (3) Schizoaffective disorder, chronic condition with acute exacerbation (4) Impulse control disorder FORTUNATO ECHEVARRIA MD Oct 26, 2018 22:03
--- NOTE | 2018-10-26 23:44 | PN ---
DATE: 10/25/2018 PSYCHIATRIC PROGRESS NOTE This late entry 10/25/2018 covers elements not covered in my initial note. SUBJECTIVE: I met with the patient in the evening at some length. She slept 4 hours previous night, was screaming at people, anxious, labile, somewhat grandiose, yelling, screaming, calling other staff members by her other derogatory names. She talked about having a million dollars. REVIEW OF SYSTEMS: Ambulation impaired, in wheelchair. No CV, , pulmonary, eye, ENT system symptoms on review. She has vague somatic symptoms. MENTAL STATUS EXAM: Oriented to herself and situation. Speech coherent, rapid at times. Abstraction fair, computation impaired, language function intact, attention span short. Mood and affect remains grandiose, labile. LABORATORY DATA: Reviewed. IMPRESSION: Bipolar 1 disorder, manic with psychotic features; anxiety disorder, unspecified. Rest unchanged. PLAN: We have increased the Geodon to 80 mg b.i.d. We will continue with the increase trazodone from 100 mg at bedtime p.r.n., may repeat x 1 to 150 mg at bedtime p.r.n., may repeat x 1 since she just slept 4 hours previous night. Continue rest of the psychotropics unchanged. FORTUNATO ECHEVARRIA MD DR: JACKIE/jason JOB#: [id number] / [id number]
[2018-10-27] MEDS: LEVOTHYROXINE 88 MCG TABLET PO SCH (05:15)
[2018-10-27 06:53] VITALS: BP 138/91
[2018-10-27] MEDS: LACTOBACILLUS RHAMNOSUS GG 1 CAPSULE. PO SCH (09:17)
[2018-10-27] MEDS: POTASSIUM CHLORIDE 20 MEQ TABLET.ER. PO SCH (09:18)
[2018-10-27] MEDS: FUROSEMIDE 80 MG TABLET PO SCH (09:18)
[2018-10-27] MEDS: ZIPRASIDONE 80 MG CAPSULE. PO SCH ×2 (09:18→19:38)
[2018-10-27] MEDS: CEPHALEXIN 250 MG CAPSULE PO SCH ×4 (09:18→19:38)
[2018-10-27] MEDS: CHOLECALCIFEROL (VITAMIN D3) 50,000 UNIT CAPSULE PO SCH (09:19)
[2018-10-27 11:50] LABS: BASO # 0.1 x10^3/uL (0.0-0.2); BASO % 1 % (0-3); EOS # 0.1 x10^3/uL (0.0-0.7); EOS % 2 % (0-3); HEMATOCRIT 30.9 % (36.0-47.0); LYMPH # 1.4 x10^3/uL (1.0-4.8); LYMPH % 26 % (24-48); MEAN CORPUSCULAR HEMOGLOBIN 30 pg (25-35); MEAN CORPUSCULAR HGB CONC 32 g/dL (31-37); MEAN CORPUSCULAR VOLUME 93 fL (79-100); MONO # 0.4 x10^3/uL (0.0-1.1); MONO % 6 % (0-9); NEUT # 3.6 x10^3uL (1.8-7.7); NEUT % 65 % (31-73); PLATELET COUNT 250 x10^3/uL (140-400); RED BLOOD COUNT 3.31 x10^6/uL (3.50-5.40); RED CELL DISTRIBUTION WIDTH 14.9 % (11.5-14.5); WHITE BLOOD COUNT 5.6 x10^3/uL (4.0-11.0)
[2018-10-27 12:01] LABS: ALBUMIN 2.8 g/dL (3.4-5.0); ALBUMIN/GLOBULIN RATIO 0.6 (1.0-1.7); ALK PHOS 106 U/L (46-116); ALT (SGPT) 14 U/L (14-59); ANION GAP 5 (6-14); AST (SGOT) 17 U/L (15-37); BLOOD UREA NITROGEN 41 mg/dL (7-20); BUN/CREATININE RATIO 24 (6-20); CARBON DIOXIDE 31 mmol/L (21-32); CHLORIDE 102 mmol/L (98-107); CREATININE 1.7 mg/dL (0.6-1.0); GFR 29.7; GLUCOSE 233 mg/dL (70-99); POTASSIUM 4.9 mmol/L (3.5-5.1); SODIUM 138 mmol/L (136-145); TOTAL BILIRUBIN 0.2 mg/dL (0.2-1.0); TOTAL PROTEIN 7.2 g/dL (6.4-8.2)
[2018-10-27 12:06] LABS: VAL ACID 68 mcg/mL (50-100)
[2018-10-27 17:06] VITALS: BP 114/73
[2018-10-27] MEDS: MIRTAZAPINE 15 MG TABLET PO SCH (19:38)
[2018-10-27] MEDS: traZODone 150 MG TABLET. PO SCH (19:38)
[2018-10-27] MEDS: DIVALPROEX ER 500 MG TAB.ER.24H PO SCH (19:38)
[2018-10-27] MEDS: BENZTROPINE MESYLATE 0.5 MG TABLET PO SCH (19:38)
[2018-10-27] MEDS: MELATONIN 3 MG TABLET PO SCH (19:39)
[2018-10-27] MEDS: INSULIN GLARGINE 300 UNITS/3 ML INSULN.PEN. SQ SCH (19:41)
[2018-10-27] MEDS: MINERAL OIL/PETROLATUM TOPICAL CREAM 113GM JAR. TP SCH (19:42)
[2018-10-27] MEDS: risperiDONE 0.5 MG TABLET. PO SCH (20:50)
[2018-10-27] MEDS: BENZTROPINE MESYLATE 1 MG TABLET PO SCH (20:50)
--- NOTE | 2018-10-27 22:50 | PDOC ---
Exam Note: Christopher Note: Please also refer to the separate dictated note~for this date of service dictated separately.~Patient seen individually. Discussed the patient with Nursing staff reviewed the chart.~Reviewed interim history and current functioning. Reviewed vital signs,~Labs/ Radiology~and current medications noted below. Continue current treatment with the changes noted in the dictated addendum note Assessment: Vital Signs: Vital Signs Date Time Temp Pulse Resp B/P (MAP) Pulse Ox O2 Delivery O2 Flow Rate FiO2 10/27/18 17:06 97.8 102 18 114/73 (87) 98 10/27/18 06:53 Room Air I&O Intake and Output 10/27/18 07:01 Intake Total 1640 ml Balance 1640 ml Intake Oral 1640 ml Labs: Laboratory Tests Test 10/27/18 07:59 10/27/18 11:38 10/27/18 11:52 10/27/18 17:20 Glucose (Fingerstick) 118 mg/dL (70-99) H 222 mg/dL (70-99) H 137 mg/dL (70-99) H White Blood Count 5.6 x10^3/uL (4.0-11.0) Red Blood Count 3.31 x10^6/uL (3.50-5.40) L Hemoglobin 10.0 g/dL (12.0-15.5) L Hematocrit 30.9 % (36.0-47.0) L Mean Corpuscular Volume 93 fL (79-100) Mean Corpuscular Hemoglobin 30 pg (25-35) Mean Corpuscular Hemoglobin Concent 32 g/dL (31-37) Red Cell Distribution Width 14.9 % (11.5-14.5) H Platelet Count 250 x10^3/uL (140-400) Neutrophils (%) (Auto) 65 % (31-73) Lymphocytes (%) (Auto) 26 % (24-48) Monocytes (%) (Auto) 6 % (0-9) Eosinophils (%) (Auto) 2 % (0-3) Basophils (%) (Auto) 1 % (0-3) Neutrophils # (Auto) 3.6 x10^3uL (1.8-7.7) Lymphocytes # (Auto) 1.4 x10^3/uL (1.0-4.8) Monocytes # (Auto) 0.4 x10^3/uL (0.0-1.1) Eosinophils # (Auto) 0.1 x10^3/uL (0.0-0.7) Basophils # (Auto) 0.1 x10^3/uL (0.0-0.2) Sodium Level 138 mmol/L (136-145) Potassium Level 4.9 mmol/L (3.5-5.1) Chloride Level 102 mmol/L (98-107) Carbon Dioxide Level 31 mmol/L (21-32) Anion Gap 5 (6-14) L Blood Urea Nitrogen 41 mg/dL (7-20) H Creatinine 1.7 mg/dL (0.6-1.0) H Estimated GFR (Cockcroft-Gault) 29.7 BUN/Creatinine Ratio 24 (6-20) H Glucose Level 233 mg/dL (70-99) H Calcium Level 9.0 mg/dL (8.5-10.1) Total Bilirubin 0.2 mg/dL (0.2-1.0) Aspartate Amino Transferase (AST) 17 U/L (15-37) Alanine Aminotransferase (ALT) 14 U/L (14-59) Alkaline Phosphatase 106 U/L (46-116) Total Protein 7.2 g/dL (6.4-8.2) Albumin 2.8 g/dL (3.4-5.0) L Albumin/Globulin Ratio 0.6 (1.0-1.7) L Valproic Acid Level 68 mcg/mL (50-100) Valproic Acid Last Dose Date 10/26/18 Valproic Acid Last Dose Time 2100 Test 10/27/18 19:22 Glucose (Fingerstick) 171 mg/dL (70-99) H Current Medications: Meds: Current Medications Acetaminophen (Tylenol) 650 mg PRN Q4HRS PRN PO PAIN Last administered on at 08:22; Start 10/20/18 at 21:45 Insulin Glargine (Lantus) 10 units QHS SQ ; Start 10/21/18 at 21:00; Stop at 21:00; Status DC Levothyroxine Sodium (Synthroid) 88 mcg DAILY06 PO Last administered on at 05:15; Start 10/21/18 at 06:00 Multi-Ingred Cream/Lotion/Oil/ Oint (Hydrocerin) 1 lori HS TP Last administered on 10/27/18 19:42; Start 10/21/18 at 21:00 Potassium Chloride (Klor-Con) 20 meq DAILY PO Last administered on 10/27/18 09 :18; Start 10/21/18 at 09:00 Lactobacillus Rhamnosus (Culturelle) 1 cap DAILY PO Last administered on 09:17; Start 10/21/18 at 09:00 Cephalexin HCl (Keflex) 500 mg QID PO Last administered on 10/27/18 19:38; Start 10/21/18 at 09:00 Vitamin D (Vitamin D3) 50,000 unit WEEKLY PO Last administered on 10/27/18 09: 19; Start 10/27/18 at 09:00 Furosemide (Lasix) 80 mg DAILY PO Last administered on 10/27/18 09:18; Start 10/21/18 at 09:00 Levofloxacin (Levaquin) 750 mg DAILY06 PO Last administered on 10/21/18 05:52; Start 10/21/18 at 06:00; Stop 10/21/18 at 18:06; Status DC Sennosides (Senna) 8.6 mg PRN BID PRN PO CONSTIPATION Last administered on 09:26; Start 10/20/18 at 21:45 Clonazepam (KlonoPIN) 0.5 mg PRN Q6HRS PRN PO ANXIETY / AGITATION Last administered on 10/25/18 17:44; Start 10/20/18 at 21:45 Melatonin 6 mg HS PO Last administered on 10/27/18 19:39; Start 10/21/18 at 21: 00 Mirtazapine (Remeron) 15 mg QHS PO Last administered on 10/27/18 19:38; Start 10/21/18 at 21:00 Ziprasidone (Geodon) 60 mg BID PO Last administered on 10/22/18 09:10; Start at 09:00; Stop 10/22/18 at 16:18; Status DC Acetaminophen (Tylenol) 650 mg PRN Q6HRS PRN PO PAIN / TEMP; Start 10/20/18 at 22:30; Status UNV Multi-Ingredient Ointment (Analgesic [place]) 1 lori PRN QID PRN TP MUSCLE PAIN; Start 10/20/18 at 22:30 Al Hydroxide/Mg Hydroxide (Mylanta Plus Xs) 15 ml PRN AFTMEALHC PRN PO DYSPEPSIA; Start 10/20/18 at 22:30 Magnesium Hydroxide (Milk Of Magnesia) 2,400 mg PRN QHS PRN PO CONSTIPATION; Start 10/20/18 at 22:30 Insulin Glargine (Lantus) 10 units QHS SQ Last administered on 10/23/18 20:14; Start 10/20/18 at 23:50; Stop 10/24/18 at 14:52; Status DC Insulin Glargine (Lantus) 300 units STK-MED ONCE SQ ; Start 10/20/18 at 23:49; Stop 10/20/18 at 23:51; Status DC Divalproex Sodium (Depakote Er) 500 mg QHS PO Last administered on 10/23/18 20: 09; Start 10/21/18 at 21:00; Stop 10/24/18 at 17:07; Status DC Penicillin G Benzathine (Bicillin L-A) 1,200,000 unit WEEKLY IM Last administered on 10/21/18 22:14; Start 10/21/18 at 21:00 Ziprasidone (Geodon) 80 mg BID PO Last administered on 10/27/18 19:38; Start 10/22/18 at 21:00; Stop 10/27/18 at 20:47; Status DC Trazodone HCl (Desyrel) 100 mg QHS PO Last administered on 10/24/18 20:34; Start 10/22/18 at 21:00; Stop 10/25/18 at 16:41; Status DC Olanzapine (ZyPREXA ZYDIS) 5 mg PRN Q2HR PRN PO PSYCHOSIS/AGITATION Last administered on 10/22/18 18:36; Start 10/22/18 at 18:30 Insulin Glargine (Lantus) 15 units QHS SQ Last administered on 10/27/18 19:41 ; Start 10/24/18 at 21:00 Divalproex Sodium (Depakote Er) 1,000 mg QHS PO Last administered on 10/27/18 19:38; Start 10/24/18 at 21:00 Benztropine Mesylate (Cogentin) 0.5 mg QHS PO Last administered on 10/27/18 19 :38; Start 10/24/18 at 21:00; Stop 10/27/18 at 20:47; Status DC Diphenhydramine HCl (Benadryl) 25 mg PRN Q4HRS PRN PO ITCHING Last administered on 10/25/18 10:34; Start 10/24/18 at 23:30 Trazodone HCl (Desyrel) 150 mg QHS PO Last administered on 10/27/18 19:38; Start 10/25/18 at 21:00 Benztropine Mesylate (Cogentin) 1 mg QHS PO Last administered on 10/27/18at 20: 50; Start 10/27/18 at 21:00 Risperidone (RisperDAL) 0.5 mg HS PO Last administered on 10/27/18at 20:50; Start 10/27/18 at 21:00 Active Scripts Active Reported Cephalexin 500 Mg Capsule 500 Mg PO QID Geodon (Ziprasidone Hcl) 20 Mg Capsule 20 Mg PO BID Klor-Con M20 (Potassium Chloride) 20 Meq Tab.er.prt 20 Meq PO DAILY Levoxyl (Levothyroxine Sodium) 88 Mcg Tablet 88 Mcg PO DAILY Sennosides 8.6 Mg Tablet 8.6 Mg PO BID Tylenol (Acetaminophen) 325 Mg Tablet 650 Mg PO PRN Q4HRS PRN Klonopin (Clonazepam) 0.5 Mg Tablet 0.5 Mg PO PRN Q6HRS PRN Levaquin (Levofloxacin) 750 Mg Tablet 750 Mg PO DAILY Eucerin Creme (Mineral Oil/Petrolatum,White) 120 Gm Cream..g. 120 Gm TP HS Lasix (Furosemide) 80 Mg Tablet 80 Mg PO DAILY Floranex Tablet (Acidophilus/Bulgaricus) 1 Each Tablet 1 Each PO DAILY Vitamin D2 (Ergocalciferol (Vitamin D2)) 50,000 Unit Capsule 50,000 Unit PO WEEKLY Lantus Solostar (Insulin Glargine,Hum.rec.anlog) 100 Unit/1 Ml Insuln.pen 10 Unit SQ QHS Melatonin 3 Mg Tablet 6 Mg PO HS PRN Mirtazapine 15 Mg Tablet 15 Mg PO HS I have reviewed the current psychotropics carefully including drug interactions. Risk benefit ratio favors no change other than as noted in my dictated progress note. Diagnosis: Problems: (1) Anxiety disorder (2) Dementia in Alzheimer's disease with delusions (3) Schizoaffective disorder, chronic condition with acute exacerbation (4) Impulse control disorder FORTUNATO ECHEVARRIA MD Oct 27, 2018 22:50
--- NOTE | 2018-10-28 01:23 | PN ---
DATE: 10/26/2018 PSYCHIATRIC PROGRESS NOTE This is a late entry for 10/26/2018 and covers elements not covered in my initial note. SUBJECTIVE: I met with the patient in the evening. The patient slept 6-1/4 hours previous night. She has been drooling, bent over to one side, somewhat grandiose, still psychotic, refused her insulin and medications earlier in the day. REVIEW OF SYSTEMS: Ambulation impaired, in wheelchair, ongoing drooling and being bent over to one side. No CV, , pulmonary, eye system symptoms on review. MENTAL STATUS EXAM: Oriented to herself and situation. Speech coherent, somewhat pressured at times. Abstraction fair, computation impaired, language function intact, attention span short. Mood and affect remain somewhat anxious, labile. LABORATORY DATA: Reviewed. IMPRESSION: Bipolar 1 disorder, mixed with psychotic features versus schizoaffective disorder, bipolar type, mixed with psychotic features; cognitive disorder, unspecified. PLAN: Continue current psychotropics mentioned in my initial, but if psychotic symptoms persist, we will consider changing Geodon to Risperdal. She is on Cogentin 0.5 mg at bedtime for her drooling. We may need to increase this in due course. FORTUNATO ECHEVARRIA MD DR: JACKIE/jason JOB#: [id number] / [id number]
--- NOTE | 2018-10-28 01:45 | PN ---
DATE: 10/27/2018 PSYCHIATRIC PROGRESS NOTE This note covers elements not covered in my initial note of 10/27/2018. SUBJECTIVE: I met with the patient in the evening. The patient slept 6 hours previous night. The patient continues to have some drooling. Ambulation impaired, in wheelchair, remains quite paranoid, psychotic. REVIEW OF SYSTEMS: No CV, , GI, eye system symptoms on review. MENTAL STATUS EXAM: Oriented to herself and situation. Speech is coherent, still somewhat pressured. Abstraction fair, computation impaired, language function intact, attention span short. Mood and affect remain labile. As I met with her, she talked at some length about getting tonight at 11:00 amongst other things. IMPRESSION: Bipolar 1 disorder, mixed with psychotic features versus schizoaffective disorder, bipolar type, mixed with psychotic features. Rest unchanged. SHE DOES HAVE ALLERGY TO SULFA AND CHLORPROMAZINE. PLAN: Increase Cogentin from 0.5 mg at bedtime to 1 mg at bedtime for her drooling. The patient remains quite psychotic despite Geodon 80 mg b.i.d. We will change to Risperdal 0.5 mg at bedtime, but we may need to increase it in due course. Continue rest, unchanged. FORTUNATO ECHEVARRIA MD DR: JACKIE/jason JOB#: [id number] / [id number]
[2018-10-28] MEDS: LEVOTHYROXINE 88 MCG TABLET PO SCH (05:32)
[2018-10-28 06:12] VITALS: BP 140/91
[2018-10-28] MEDS: LACTOBACILLUS RHAMNOSUS GG 1 CAPSULE. PO SCH (09:10)
[2018-10-28] MEDS: CEPHALEXIN 250 MG CAPSULE PO SCH ×4 (09:11→20:03)
[2018-10-28] MEDS: POTASSIUM CHLORIDE 20 MEQ TABLET.ER. PO SCH (09:11)
[2018-10-28] MEDS: FUROSEMIDE 80 MG TABLET PO SCH (09:12)
[2018-10-28] MEDS: PENICILLIN G BENZATHINE LA 1,200,000 UNIT/2 ML DISP.SYRIN. IM SCH (13:33)
[2018-10-28] MEDS ORDERED: PENICILLIN G BENZATHINE LA 1,200,000 UNIT/2 ML DISP.SYRIN. IM ONE ×2 (15:00→21:00)
[2018-10-28 16:41] VITALS: BP 114/73
[2018-10-28] MEDS: MIRTAZAPINE 15 MG TABLET PO SCH (20:03)
[2018-10-28] MEDS: BENZTROPINE MESYLATE 1 MG TABLET PO SCH (20:03)
[2018-10-28] MEDS: MELATONIN 3 MG TABLET PO SCH (20:03)
[2018-10-28] MEDS: traZODone 150 MG TABLET. PO SCH (20:03)
[2018-10-28] MEDS: DIVALPROEX ER 500 MG TAB.ER.24H PO SCH (20:03)
[2018-10-28] MEDS: risperiDONE 0.5 MG TABLET. PO SCH (20:03)
[2018-10-28] MEDS: MINERAL OIL/PETROLATUM TOPICAL CREAM 113GM JAR. TP SCH (20:06)
[2018-10-28] MEDS: INSULIN GLARGINE 300 UNITS/3 ML INSULN.PEN. SQ SCH (20:09)
--- NOTE | 2018-10-29 01:31 | PN ---
DATE: 10/27/2018 PSYCHIATRIC PROGRESS NOTE This late entry 10/27/2018 covers elements not covered in my initial note. SUBJECTIVE: I met with the patient in the evening. The patient slept 6 hours previous night. She has had some drooling bending over to the side, but less so than before. The patient remains quite psychotic, grandiose, believes she owns this place amongst other things. REVIEW OF SYSTEMS: Ambulation impaired, in wheelchair. No CV, , pulmonary, eye system symptoms on review. We have reviewed history of ALLERGIES TO SULFA AND CHLORPROMAZINE. Abstraction fair, computation impaired, language function intact, attention span short. Mood and affect remain somewhat grandiose. Ambulation impaired, in wheelchair. IMPRESSION: Bipolar 1 disorder, manic with psychotic features; anxiety disorder, unspecified. Rest unchanged. PLAN: The patient remains quite psychotic despite Geodon 80 mg b.i.d. We will change this to Risperdal 0.5 mg at bedtime, increase Cogentin from 0.5 mg at bedtime to 1 mg at bedtime. Rest unchanged from initial note including Depakote, Remeron, melatonin, trazodone along with Klonopin and Zyprexa p.r.n. FORTUNATO ECHEVARRIA MD DR: JACKIE/jason JOB#: [id number] / [id number]
[2018-10-29] MEDS: LEVOTHYROXINE 88 MCG TABLET PO SCH (05:24)
[2018-10-29 05:48] VITALS: BP 160/82
[2018-10-29] MEDS: LACTOBACILLUS RHAMNOSUS GG 1 CAPSULE. PO SCH (08:02)
[2018-10-29] MEDS: FUROSEMIDE 80 MG TABLET PO SCH (08:02)
[2018-10-29] MEDS: CEPHALEXIN 250 MG CAPSULE PO SCH ×4 (08:02→20:20)
[2018-10-29] MEDS: POTASSIUM CHLORIDE 20 MEQ TABLET.ER. PO SCH (08:02)
--- NOTE | 2018-10-29 09:29 | PDOC ---
Exam Note: Christopher Note: Late entry for DOS 10.28.2018. Please also refer to the separate dictated note~ for this date of service dictated separately.~Patient seen individually. Discussed the patient with Nursing staff reviewed the chart.~Reviewed interim history and current functioning. Reviewed vital signs,~Labs/ Radiology~and current medications noted below. Continue current treatment with the changes noted in the dictated addendum note Assessment: Vital Signs: VS - Last 72 Hours, by Label Date Time Temp Pulse Resp B/P (MAP) Pulse Ox O2 Delivery O2 Flow Rate FiO2 10/29/18 05:48 98.1 104 20 160/82 (108) 100 10/28/18 16:41 97.5 114 18 114/73 (87) 95 10/28/18 06:12 97.7 103 16 140/91 (107) 99 10/27/18 17:06 97.8 102 18 114/73 (87) 98 10/27/18 06:53 97.5 91 20 138/91 (107) 97 Room Air 10/26/18 16:50 97.6 88 20 128/77 (94) 95 Vital Signs Date Time Temp Pulse Resp B/P (MAP) Pulse Ox O2 Delivery O2 Flow Rate FiO2 10/29/18 05:48 98.1 104 20 160/82 (108) 100 10/27/18 06:53 Room Air I&O Intake and Output 10/29/18 06:59 Intake Total 840 ml Balance 840 ml Intake Oral 840 ml # Voids 2 Labs: Laboratory Tests Test 10/28/18 11:53 10/28/18 16:51 10/28/18 19:18 10/29/18 07:20 Glucose (Fingerstick) 208 mg/dL (70-99) H 161 mg/dL (70-99) H 156 mg/dL (70-99) H 183 mg/dL (70-99) H Current Medications: Meds: Current Medications Acetaminophen (Tylenol) 650 mg PRN Q4HRS PRN PO PAIN Last administered on at 08:22; Start 10/20/18 at 21:45 Insulin Glargine (Lantus) 10 units QHS SQ ; Start 10/21/18 at 21:00; Stop at 21:00; Status DC Levothyroxine Sodium (Synthroid) 88 mcg DAILY06 PO Last administered on 05:24; Start 10/21/18 at 06:00 Multi-Ingred Cream/Lotion/Oil/ Oint (Hydrocerin) 1 lori HS TP Last administered on 10/28/18 20:06; Start 10/21/18 at 21:00 Potassium Chloride (Klor-Con) 20 meq DAILY PO Last administered on 10/29/18 08 :02; Start 10/21/18 at 09:00 Lactobacillus Rhamnosus (Culturelle) 1 cap DAILY PO Last administered on 08:02; Start 10/21/18 at 09:00 Cephalexin HCl (Keflex) 500 mg QID PO Last administered on 10/29/18 08:02; Start 10/21/18 at 09:00 Vitamin D (Vitamin D3) 50,000 unit WEEKLY PO Last administered on 10/27/18 09: 19; Start 10/27/18 at 09:00 Furosemide (Lasix) 80 mg DAILY PO Last administered on 10/29/18 08:02; Start 10/21/18 at 09:00 Levofloxacin (Levaquin) 750 mg DAILY06 PO Last administered on 10/21/18 05:52; Start 10/21/18 at 06:00; Stop 10/21/18 at 18:06; Status DC Sennosides (Senna) 8.6 mg PRN BID PRN PO CONSTIPATION Last administered on 09:26; Start 10/20/18 at 21:45 Clonazepam (KlonoPIN) 0.5 mg PRN Q6HRS PRN PO ANXIETY / AGITATION Last administered on 10/25/18 17:44; Start 10/20/18 at 21:45 Melatonin 6 mg HS PO Last administered on 10/28/18 20:03; Start 10/21/18 at 21: 00 Mirtazapine (Remeron) 15 mg QHS PO Last administered on 10/28/18 20:03; Start 10/21/18 at 21:00 Ziprasidone (Geodon) 60 mg BID PO Last administered on 10/22/18 09:10; Start at 09:00; Stop 10/22/18 at 16:18; Status DC Acetaminophen (Tylenol) 650 mg PRN Q6HRS PRN PO PAIN / TEMP; Start 10/20/18 at 22:30; Status UNV Multi-Ingredient Ointment (Analgesic [place]) 1 lori PRN QID PRN TP MUSCLE PAIN; Start 10/20/18 at 22:30 Al Hydroxide/Mg Hydroxide (Mylanta Plus Xs) 15 ml PRN AFTMEALHC PRN PO DYSPEPSIA; Start 10/20/18 at 22:30 Magnesium Hydroxide (Milk Of Magnesia) 2,400 mg PRN QHS PRN PO CONSTIPATION; Start 10/20/18 at 22:30 Insulin Glargine (Lantus) 10 units QHS SQ Last administered on 10/23/18 20:14; Start 10/20/18 at 23:50; Stop 10/24/18 at 14:52; Status DC Insulin Glargine (Lantus) 300 units STK-MED ONCE SQ ; Start 10/20/18 at 23:49; Stop 10/20/18 at 23:51; Status DC Divalproex Sodium (Depakote Er) 500 mg QHS PO Last administered on 10/23/18 20: 09; Start 10/21/18 at 21:00; Stop 10/24/18 at 17:07; Status DC Penicillin G Benzathine (Bicillin L-A) 1,200,000 unit WEEKLY IM Last administered on 10/28/18 13:33; Start 10/21/18 at 21:00; Stop 10/28/18 at 14:43 ; Status DC Ziprasidone (Geodon) 80 mg BID PO Last administered on 10/27/18 19:38; Start 10/22/18 at 21:00; Stop 10/27/18 at 20:47; Status DC Trazodone HCl (Desyrel) 100 mg QHS PO Last administered on 10/24/18 20:34; Start 10/22/18 at 21:00; Stop 10/25/18 at 16:41; Status DC Olanzapine (ZyPREXA ZYDIS) 5 mg PRN Q2HR PRN PO PSYCHOSIS/AGITATION Last administered on 10/22/18 18:36; Start 10/22/18 at 18:30 Insulin Glargine (Lantus) 15 units QHS SQ Last administered on 10/28/18 20:09 ; Start 10/24/18 at 21:00 Divalproex Sodium (Depakote Er) 1,000 mg QHS PO Last administered on 10/28/18 20:03; Start 10/24/18 at 21:00 Benztropine Mesylate (Cogentin) 0.5 mg QHS PO Last administered on 10/27/18 19 :38; Start 10/24/18 at 21:00; Stop 10/27/18 at 20:47; Status DC Diphenhydramine HCl (Benadryl) 25 mg PRN Q4HRS PRN PO ITCHING Last administered on 10/25/18 10:34; Start 10/24/18 at 23:30 Trazodone HCl (Desyrel) 150 mg QHS PO Last administered on 10/28/18 20:03; Start 10/25/18 at 21:00 Benztropine Mesylate (Cogentin) 1 mg QHS PO Last administered on 10/28/18 20: 03; Start 10/27/18 at 21:00 Risperidone (RisperDAL) 0.5 mg HS PO Last administered on 10/28/18 20:03; Start 10/27/18 at 21:00 Penicillin G Benzathine (Bicillin L-A) 2,400,000 unit WEEKLY IM ; Start at 09:00 Penicillin G Benzathine (Bicillin L-A) 1,200,000 unit 1X ONCE IM ; Start at 15:00; Stop 10/28/18 at 15:06; Status DC Penicillin G Benzathine (Bicillin L-A) 1,200,000 unit 1X ONCE IM Last administered on 10/29/18 08:04; Start 10/28/18 at 21:00; Stop 10/28/18 at 21:01 ; Status DC Active Scripts Active Reported Cephalexin 500 Mg Capsule 500 Mg PO QID Geodon (Ziprasidone Hcl) 20 Mg Capsule 20 Mg PO BID Klor-Con M20 (Potassium Chloride) 20 Meq Tab.er.prt 20 Meq PO DAILY Levoxyl (Levothyroxine Sodium) 88 Mcg Tablet 88 Mcg PO DAILY Sennosides 8.6 Mg Tablet 8.6 Mg PO BID Tylenol (Acetaminophen) 325 Mg Tablet 650 Mg PO PRN Q4HRS PRN Klonopin (Clonazepam) 0.5 Mg Tablet 0.5 Mg PO PRN Q6HRS PRN Levaquin (Levofloxacin) 750 Mg Tablet 750 Mg PO DAILY Eucerin Creme (Mineral Oil/Petrolatum,White) 120 Gm Cream..g. 120 Gm TP HS Lasix (Furosemide) 80 Mg Tablet 80 Mg PO DAILY Floranex Tablet (Acidophilus/Bulgaricus) 1 Each Tablet 1 Each PO DAILY Vitamin D2 (Ergocalciferol (Vitamin D2)) 50,000 Unit Capsule 50,000 Unit PO WEEKLY Lantus Solostar (Insulin Glargine,Hum.rec.anlog) 100 Unit/1 Ml Insuln.pen 10 Unit SQ QHS Melatonin 3 Mg Tablet 6 Mg PO HS PRN Mirtazapine 15 Mg Tablet 15 Mg PO HS I have reviewed the current psychotropics carefully including drug interactions. Risk benefit ratio favors no change other than as noted in my dictated progress note. Diagnosis: Problems: (1) Anxiety disorder (2) Dementia in Alzheimer's disease with delusions (3) Schizoaffective disorder, chronic condition with acute exacerbation (4) Impulse control disorder FORTUNATO ECHEVARRIA MD Oct 29, 2018 09:29
[2018-10-29] MEDS: clonazePAM 0.5 MG TABLET PO PRN ×2 (10:00→23:54)
[2018-10-29 15:14] VITALS: BP 108/68
[2018-10-29] MEDS: traZODone 150 MG TABLET. PO SCH (20:20)
[2018-10-29] MEDS: MELATONIN 3 MG TABLET PO SCH (20:20)
[2018-10-29] MEDS: BENZTROPINE MESYLATE 1 MG TABLET PO SCH (20:20)
[2018-10-29] MEDS: MIRTAZAPINE 15 MG TABLET PO SCH (20:21)
[2018-10-29] MEDS: DIVALPROEX ER 500 MG TAB.ER.24H PO SCH (20:21)
[2018-10-29] MEDS: risperiDONE 1 MG TABLET. PO SCH (20:22)
[2018-10-29] MEDS: MINERAL OIL/PETROLATUM TOPICAL CREAM 113GM JAR. TP SCH (20:22)
[2018-10-29] MEDS: INSULIN GLARGINE 300 UNITS/3 ML INSULN.PEN. SQ SCH (20:24)
--- NOTE | 2018-10-29 21:48 | PN ---
DATE: 10/28/2018 PSYCHIATRIC PROGRESS NOTE This late entry for 10/28/2017 covers elements not covered in my initial note. SUBJECTIVE: I met with the patient in the evening. The patient slept 6-1/4 hours previous night. 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 She did walk with physical therapy staff, less sedated and less leaning to one side. BUN and creatinine are elevated, defer to Dr. Sunshine. 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 REVIEW OF SYSTEMS: Ambulation impaired, in wheelchair. No CV, , pulmonary, eye, ENT system symptoms on review. She has vague somatic symptoms. Reliability poor. She followed me around the unit, met with her 2 or 3 times. MENTAL STATUS EXAM: Oriented to herself and situation. Speech coherent, rapid at times. Abstraction fair, computation impaired, language function intact, attention span short. Mood and affect remains labile. LABORATORY DATA: Reviewed. IMPRESSION: Bipolar 1 disorder, mixed with psychotic features, in partial remission; anxiety disorder, unspecified; impulse control disorder, unspecified. Rest unchanged. PLAN: Continue psychotropics from initial note. We have initiated Risperdal, may need to increase this. Rest unchanged. Valproic acid level therapeutic at 68. Continue Depakote at current dosage. MAN Kati ECHEVARRIA MD DR: JACKIE/jason JOB#: [id number] / [id number]
--- NOTE | 2018-10-29 22:44 | PDOC ---
Exam Note: Christopher Note: Please also refer to the separate dictated note~for this date of service dictated separately.~Patient seen individually. Discussed the patient with Nursing staff reviewed the chart.~Reviewed interim history and current functioning. Reviewed vital signs,~Labs/ Radiology~and current medications noted below. Continue current treatment with the changes noted in the dictated addendum note Assessment: Vital Signs: Vital Signs Date Time Temp Pulse Resp B/P (MAP) Pulse Ox O2 Delivery O2 Flow Rate FiO2 10/29/18 15:14 97.3 111 20 108/68 (81) 100 10/27/18 06:53 Room Air I&O Intake and Output 10/29/18 07:00 Intake Total 840 ml Balance 840 ml Intake Oral 840 ml # Voids 2 Labs: Laboratory Tests Test 10/29/18 07:20 10/29/18 11:50 10/29/18 16:54 10/29/18 19:35 Glucose (Fingerstick) 183 mg/dL (70-99) H 153 mg/dL (70-99) H 225 mg/dL (70-99) H 201 mg/dL (70-99) H Current Medications: Meds: Current Medications Acetaminophen (Tylenol) 650 mg PRN Q4HRS PRN PO PAIN Last administered on 08:22; Start 10/20/18 at 21:45 Insulin Glargine (Lantus) 10 units QHS SQ ; Start 10/21/18 at 21:00; Stop at 21:00; Status DC Levothyroxine Sodium (Synthroid) 88 mcg DAILY06 PO Last administered on at 05:24; Start 10/21/18 at 06:00 Multi-Ingred Cream/Lotion/Oil/ Oint (Hydrocerin) 1 lori HS TP Last administered on 10/29/18 20:22; Start 10/21/18 at 21:00 Potassium Chloride (Klor-Con) 20 meq DAILY PO Last administered on 10/29/18 08 :02; Start 10/21/18 at 09:00 Lactobacillus Rhamnosus (Culturelle) 1 cap DAILY PO Last administered on 08:02; Start 10/21/18 at 09:00 Cephalexin HCl (Keflex) 500 mg QID PO Last administered on 10/29/18 20:20; Start 10/21/18 at 09:00 Vitamin D (Vitamin D3) 50,000 unit WEEKLY PO Last administered on 10/27/18 09: 19; Start 10/27/18 at 09:00 Furosemide (Lasix) 80 mg DAILY PO Last administered on 10/29/18 08:02; Start 10/21/18 at 09:00 Levofloxacin (Levaquin) 750 mg DAILY06 PO Last administered on 10/21/18 05:52; Start 10/21/18 at 06:00; Stop 10/21/18 at 18:06; Status DC Sennosides (Senna) 8.6 mg PRN BID PRN PO CONSTIPATION Last administered on 09:26; Start 10/20/18 at 21:45 Clonazepam (KlonoPIN) 0.5 mg PRN Q6HRS PRN PO ANXIETY / AGITATION Last administered on 10/29/18 10:00; Start 10/20/18 at 21:45 Melatonin 6 mg HS PO Last administered on 10/29/18 20:20; Start 10/21/18 at 21: 00 Mirtazapine (Remeron) 15 mg QHS PO Last administered on 10/29/18 20:21; Start 10/21/18 at 21:00 Ziprasidone (Geodon) 60 mg BID PO Last administered on 10/22/18 09:10; Start at 09:00; Stop 10/22/18 at 16:18; Status DC Acetaminophen (Tylenol) 650 mg PRN Q6HRS PRN PO PAIN / TEMP; Start 10/20/18 at 22:30; Status UNV Multi-Ingredient Ointment (Analgesic [place]) 1 lori PRN QID PRN TP MUSCLE PAIN; Start 10/20/18 at 22:30 Al Hydroxide/Mg Hydroxide (Mylanta Plus Xs) 15 ml PRN AFTMEALHC PRN PO DYSPEPSIA; Start 10/20/18 at 22:30 Magnesium Hydroxide (Milk Of Magnesia) 2,400 mg PRN QHS PRN PO CONSTIPATION; Start 10/20/18 at 22:30 Insulin Glargine (Lantus) 10 units QHS SQ Last administered on 10/23/18 20:14; Start 10/20/18 at 23:50; Stop 10/24/18 at 14:52; Status DC Insulin Glargine (Lantus) 300 units STK-MED ONCE SQ ; Start 10/20/18 at 23:49; Stop 10/20/18 at 23:51; Status DC Divalproex Sodium (Depakote Er) 500 mg QHS PO Last administered on 10/23/18 20: 09; Start 10/21/18 at 21:00; Stop 10/24/18 at 17:07; Status DC Penicillin G Benzathine (Bicillin L-A) 1,200,000 unit WEEKLY IM Last administered on 10/28/18 13:33; Start 10/21/18 at 21:00; Stop 10/28/18 at 14:43 ; Status DC Ziprasidone (Geodon) 80 mg BID PO Last administered on 10/27/18 19:38; Start 10/22/18 at 21:00; Stop 10/27/18 at 20:47; Status DC Trazodone HCl (Desyrel) 100 mg QHS PO Last administered on 10/24/18 20:34; Start 10/22/18 at 21:00; Stop 10/25/18 at 16:41; Status DC Olanzapine (ZyPREXA ZYDIS) 5 mg PRN Q2HR PRN PO PSYCHOSIS/AGITATION Last administered on 10/29/18 20:28; Start 10/22/18 at 18:30 Insulin Glargine (Lantus) 15 units QHS SQ Last administered on 10/29/18 20:24 ; Start 10/24/18 at 21:00 Divalproex Sodium (Depakote Er) 1,000 mg QHS PO Last administered on 10/29/18 20:21; Start 10/24/18 at 21:00 Benztropine Mesylate (Cogentin) 0.5 mg QHS PO Last administered on 10/27/18 19 :38; Start 10/24/18 at 21:00; Stop 10/27/18 at 20:47; Status DC Diphenhydramine HCl (Benadryl) 25 mg PRN Q4HRS PRN PO ITCHING Last administered on 10/25/18 10:34; Start 10/24/18 at 23:30 Trazodone HCl (Desyrel) 150 mg QHS PO Last administered on 10/29/18 20:20; Start 10/25/18 at 21:00 Benztropine Mesylate (Cogentin) 1 mg QHS PO Last administered on 10/29/18at 20: 20; Start 10/27/18 at 21:00 Risperidone (RisperDAL) 0.5 mg HS PO Last administered on 10/28/18at 20:03; Start 10/27/18 at 21:00; Stop 10/29/18 at 16:52; Status DC Penicillin G Benzathine (Bicillin L-A) 2,400,000 unit WEEKLY IM ; Start at 09:00 Penicillin G Benzathine (Bicillin L-A) 1,200,000 unit 1X ONCE IM ; Start at 15:00; Stop 10/28/18 at 15:06; Status DC Penicillin G Benzathine (Bicillin L-A) 1,200,000 unit 1X ONCE IM Last administered on 10/29/18at 08:04; Start 10/28/18 at 21:00; Stop 10/28/18 at 21:01 ; Status DC Risperidone (RisperDAL) 1 mg HS PO Last administered on 10/29/18at 20:22; Start 10/29/18 at 21:00 Active Scripts Active Reported Cephalexin 500 Mg Capsule 500 Mg PO QID Geodon (Ziprasidone Hcl) 20 Mg Capsule 20 Mg PO BID Klor-Con M20 (Potassium Chloride) 20 Meq Tab.er.prt 20 Meq PO DAILY Levoxyl (Levothyroxine Sodium) 88 Mcg Tablet 88 Mcg PO DAILY Sennosides 8.6 Mg Tablet 8.6 Mg PO BID Tylenol (Acetaminophen) 325 Mg Tablet 650 Mg PO PRN Q4HRS PRN Klonopin (Clonazepam) 0.5 Mg Tablet 0.5 Mg PO PRN Q6HRS PRN Levaquin (Levofloxacin) 750 Mg Tablet 750 Mg PO DAILY Eucerin Creme (Mineral Oil/Petrolatum,White) 120 Gm Cream..g. 120 Gm TP HS Lasix (Furosemide) 80 Mg Tablet 80 Mg PO DAILY Floranex Tablet (Acidophilus/Bulgaricus) 1 Each Tablet 1 Each PO DAILY Vitamin D2 (Ergocalciferol (Vitamin D2)) 50,000 Unit Capsule 50,000 Unit PO WEEKLY Lantus Solostar (Insulin Glargine,Hum.rec.anlog) 100 Unit/1 Ml Insuln.pen 10 Unit SQ QHS Melatonin 3 Mg Tablet 6 Mg PO HS PRN Mirtazapine 15 Mg Tablet 15 Mg PO HS I have reviewed the current psychotropics carefully including drug interactions. Risk benefit ratio favors no change other than as noted in my dictated progress note. Diagnosis: Problems: (1) Anxiety disorder (2) Dementia in Alzheimer's disease with delusions (3) Schizoaffective disorder, chronic condition with acute exacerbation (4) Impulse control disorder FORTUNATO ECHEVARRIA MD Oct 29, 2018 22:44
[2018-10-29] MEDS: ACETAMINOPHEN 325 MG TABLET PO PRN (23:41)
[2018-10-30 06:02] VITALS: BP 147/86
[2018-10-30] MEDS: LEVOTHYROXINE 88 MCG TABLET PO SCH (06:26)
[2018-10-30] MEDS: POTASSIUM CHLORIDE 20 MEQ TABLET.ER. PO SCH (09:06)
[2018-10-30] MEDS: FUROSEMIDE 80 MG TABLET PO SCH (09:06)
[2018-10-30] MEDS: LACTOBACILLUS RHAMNOSUS GG 1 CAPSULE. PO SCH (09:06)
[2018-10-30] MEDS: CEPHALEXIN 250 MG CAPSULE PO SCH ×4 (09:06→21:10)
[2018-10-30 09:56] LABS: BASO % 1 % (0-3); EOS # 0.1 x10^3/uL (0.0-0.7); EOS % 2 % (0-3); HEMATOCRIT 31.2 % (36.0-47.0); HEMOGLOBIN 10.1 g/dL (12.0-15.5); LYMPH # 1.2 x10^3/uL (1.0-4.8); LYMPH % 20 % (24-48); MEAN CORPUSCULAR HEMOGLOBIN 30 pg (25-35); MEAN CORPUSCULAR HGB CONC 33 g/dL (31-37); MEAN CORPUSCULAR VOLUME 92 fL (79-100); MONO # 0.6 x10^3/uL (0.0-1.1); MONO % 9 % (0-9); NEUT # 4.1 x10^3uL (1.8-7.7); NEUT % 68 % (31-73); PLATELET COUNT 241 x10^3/uL (140-400); RED BLOOD COUNT 3.38 x10^6/uL (3.50-5.40); RED CELL DISTRIBUTION WIDTH 14.7 % (11.5-14.5); WHITE BLOOD COUNT 6.1 x10^3/uL (4.0-11.0)
[2018-10-30 10:12] LABS: ALBUMIN 2.6 g/dL (3.4-5.0); ALBUMIN/GLOBULIN RATIO 0.7 (1.0-1.7); CALCIUM 8.9 mg/dL (8.5-10.1); CREATININE 1.6 mg/dL (0.6-1.0); GFR 31.9; POTASSIUM 4.2 mmol/L (3.5-5.1); TOTAL BILIRUBIN 0.2 mg/dL (0.2-1.0); TOTAL PROTEIN 6.6 g/dL (6.4-8.2)
[2018-10-30] MEDS: clonazePAM 0.5 MG TABLET PO PRN ×2 (11:19→18:06)
[2018-10-30 16:13] VITALS: BP 113/68
[2018-10-30] MEDS: traZODone 150 MG TABLET. PO SCH (21:09)
[2018-10-30] MEDS: BENZTROPINE MESYLATE 1 MG TABLET PO SCH (21:09)
[2018-10-30] MEDS: risperiDONE 1 MG TABLET. PO SCH (21:09)
[2018-10-30] MEDS: DIVALPROEX ER 500 MG TAB.ER.24H PO SCH (21:09)
[2018-10-30] MEDS: MIRTAZAPINE 15 MG TABLET PO SCH (21:10)
[2018-10-30] MEDS: MELATONIN 3 MG TABLET PO SCH (21:11)
--- NOTE | 2018-10-30 22:24 | PDOC ---
Exam Note: Christopher Note: Please also refer to the separate dictated note~for this date of service dictated separately.~Patient seen individually. Discussed the patient with Nursing staff reviewed the chart.~Reviewed interim history and current functioning. Reviewed vital signs,~Labs/ Radiology~and current medications noted below. Continue current treatment with the changes noted in the dictated addendum note Assessment: Vital Signs: Vital Signs Date Time Temp Pulse Resp B/P (MAP) Pulse Ox O2 Delivery O2 Flow Rate FiO2 10/30/18 16:13 98.3 110 20 113/68 (83) 99 10/27/18 06:53 Room Air I&O Intake and Output 10/30/18 07:00 Intake Total 960 ml Balance 960 ml Intake Oral 960 ml Labs: Laboratory Tests Test 10/30/18 07:38 10/30/18 09:39 10/30/18 11:39 10/30/18 16:22 Glucose (Fingerstick) 144 mg/dL (70-99) H 122 mg/dL (70-99) H 162 mg/dL (70-99) H White Blood Count 6.1 x10^3/uL (4.0-11.0) Red Blood Count 3.38 x10^6/uL (3.50-5.40) L Hemoglobin 10.1 g/dL (12.0-15.5) L Hematocrit 31.2 % (36.0-47.0) L Mean Corpuscular Volume 92 fL (79-100) Mean Corpuscular Hemoglobin 30 pg (25-35) Mean Corpuscular Hemoglobin Concent 33 g/dL (31-37) Red Cell Distribution Width 14.7 % (11.5-14.5) H Platelet Count 241 x10^3/uL (140-400) Neutrophils (%) (Auto) 68 % (31-73) Lymphocytes (%) (Auto) 20 % (24-48) L Monocytes (%) (Auto) 9 % (0-9) Eosinophils (%) (Auto) 2 % (0-3) Basophils (%) (Auto) 1 % (0-3) Neutrophils # (Auto) 4.1 x10^3uL (1.8-7.7) Lymphocytes # (Auto) 1.2 x10^3/uL (1.0-4.8) Monocytes # (Auto) 0.6 x10^3/uL (0.0-1.1) Eosinophils # (Auto) 0.1 x10^3/uL (0.0-0.7) Basophils # (Auto) 0.0 x10^3/uL (0.0-0.2) Sodium Level 140 mmol/L (136-145) Potassium Level 4.2 mmol/L (3.5-5.1) Chloride Level 103 mmol/L (98-107) Carbon Dioxide Level 32 mmol/L (21-32) Anion Gap 5 (6-14) L Blood Urea Nitrogen 47 mg/dL (7-20) H Creatinine 1.6 mg/dL (0.6-1.0) H Estimated GFR (Cockcroft-Gault) 31.9 BUN/Creatinine Ratio 29 (6-20) H Glucose Level 184 mg/dL (70-99) H Calcium Level 8.9 mg/dL (8.5-10.1) Total Bilirubin 0.2 mg/dL (0.2-1.0) Aspartate Amino Transferase (AST) 15 U/L (15-37) Alanine Aminotransferase (ALT) 10 U/L (14-59) L Alkaline Phosphatase 99 U/L (46-116) Total Protein 6.6 g/dL (6.4-8.2) Albumin 2.6 g/dL (3.4-5.0) L Albumin/Globulin Ratio 0.7 (1.0-1.7) L Test 10/30/18 19:03 Glucose (Fingerstick) 227 mg/dL (70-99) H Current Medications: Meds: Current Medications Acetaminophen (Tylenol) 650 mg PRN Q4HRS PRN PO PAIN Last administered on at 08:22; Start 10/20/18 at 21:45 Insulin Glargine (Lantus) 10 units QHS SQ ; Start 10/21/18 at 21:00; Stop at 21:00; Status DC Levothyroxine Sodium (Synthroid) 88 mcg DAILY06 PO Last administered on at 06:26; Start 10/21/18 at 06:00 Multi-Ingred Cream/Lotion/Oil/ Oint (Hydrocerin) 1 lori HS TP Last administered on 10/29/18at 20:22; Start 10/21/18 at 21:00 Potassium Chloride (Klor-Con) 20 meq DAILY PO Last administered on 10/30/18 09 :06; Start 10/21/18 at 09:00 Lactobacillus Rhamnosus (Culturelle) 1 cap DAILY PO Last administered on 09:06; Start 10/21/18 at 09:00 Cephalexin HCl (Keflex) 500 mg QID PO Last administered on 10/30/18 21:10; Start 10/21/18 at 09:00 Vitamin D (Vitamin D3) 50,000 unit WEEKLY PO Last administered on 10/27/18 09: 19; Start 10/27/18 at 09:00 Furosemide (Lasix) 80 mg DAILY PO Last administered on 10/30/18 09:06; Start 10/21/18 at 09:00 Levofloxacin (Levaquin) 750 mg DAILY06 PO Last administered on 10/21/18 05:52; Start 10/21/18 at 06:00; Stop 10/21/18 at 18:06; Status DC Sennosides (Senna) 8.6 mg PRN BID PRN PO CONSTIPATION Last administered on 09:26; Start 10/20/18 at 21:45 Clonazepam (KlonoPIN) 0.5 mg PRN Q6HRS PRN PO ANXIETY / AGITATION Last administered on 10/30/18 18:06; Start 10/20/18 at 21:45 Melatonin 6 mg HS PO Last administered on 10/30/18 21:11; Start 10/21/18 at 21: 00 Mirtazapine (Remeron) 15 mg QHS PO Last administered on 10/30/18 21:10; Start 10/21/18 at 21:00 Ziprasidone (Geodon) 60 mg BID PO Last administered on 10/22/18 09:10; Start at 09:00; Stop 10/22/18 at 16:18; Status DC Acetaminophen (Tylenol) 650 mg PRN Q6HRS PRN PO PAIN / TEMP; Start 10/20/18 at 22:30; Status UNV Multi-Ingredient Ointment (Analgesic [place]) 1 lori PRN QID PRN TP MUSCLE PAIN; Start 10/20/18 at 22:30 Al Hydroxide/Mg Hydroxide (Mylanta Plus Xs) 15 ml PRN AFTMEALHC PRN PO DYSPEPSIA; Start 10/20/18 at 22:30 Magnesium Hydroxide (Milk Of Magnesia) 2,400 mg PRN QHS PRN PO CONSTIPATION; Start 10/20/18 at 22:30 Insulin Glargine (Lantus) 10 units QHS SQ Last administered on 10/23/18 20:14; Start 10/20/18 at 23:50; Stop 10/24/18 at 14:52; Status DC Insulin Glargine (Lantus) 300 units STK-MED ONCE SQ ; Start 10/20/18 at 23:49; Stop 10/20/18 at 23:51; Status DC Divalproex Sodium (Depakote Er) 500 mg QHS PO Last administered on 10/23/18 20: 09; Start 10/21/18 at 21:00; Stop 10/24/18 at 17:07; Status DC Penicillin G Benzathine (Bicillin L-A) 1,200,000 unit WEEKLY IM Last administered on 10/28/18 13:33; Start 10/21/18 at 21:00; Stop 10/28/18 at 14:43 ; Status DC Ziprasidone (Geodon) 80 mg BID PO Last administered on 10/27/18 19:38; Start 10/22/18 at 21:00; Stop 10/27/18 at 20:47; Status DC Trazodone HCl (Desyrel) 100 mg QHS PO Last administered on 10/24/18 20:34; Start 10/22/18 at 21:00; Stop 10/25/18 at 16:41; Status DC Olanzapine (ZyPREXA ZYDIS) 5 mg PRN Q2HR PRN PO PSYCHOSIS/AGITATION Last administered on 10/29/18 20:28; Start 10/22/18 at 18:30 Insulin Glargine (Lantus) 15 units QHS SQ Last administered on 10/29/18 20:24 ; Start 10/24/18 at 21:00 Divalproex Sodium (Depakote Er) 1,000 mg QHS PO Last administered on 10/30/18 21:09; Start 10/24/18 at 21:00 Benztropine Mesylate (Cogentin) 0.5 mg QHS PO Last administered on 10/27/18at 19 :38; Start 10/24/18 at 21:00; Stop 10/27/18 at 20:47; Status DC Diphenhydramine HCl (Benadryl) 25 mg PRN Q4HRS PRN PO ITCHING Last administered on 10/25/18at 10:34; Start 10/24/18 at 23:30 Trazodone HCl (Desyrel) 150 mg QHS PO Last administered on 10/30/18at 21:09; Start 10/25/18 at 21:00 Benztropine Mesylate (Cogentin) 1 mg QHS PO Last administered on 10/30/18 21: 09; Start 10/27/18 at 21:00 Risperidone (RisperDAL) 0.5 mg HS PO Last administered on 10/28/18at 20:03; Start 10/27/18 at 21:00; Stop 10/29/18 at 16:52; Status DC Penicillin G Benzathine (Bicillin L-A) 2,400,000 unit WEEKLY IM ; Start at 09:00 Penicillin G Benzathine (Bicillin L-A) 1,200,000 unit 1X ONCE IM ; Start at 15:00; Stop 10/28/18 at 15:06; Status DC Penicillin G Benzathine (Bicillin L-A) 1,200,000 unit 1X ONCE IM Last administered on 10/29/18at 08:04; Start 10/28/18 at 21:00; Stop 10/28/18 at 21:01 ; Status DC Risperidone (RisperDAL) 1 mg HS PO Last administered on 10/30/18at 21:09; Start 10/29/18 at 21:00 Active Scripts Active Reported Cephalexin 500 Mg Capsule 500 Mg PO QID Geodon (Ziprasidone Hcl) 20 Mg Capsule 20 Mg PO BID Klor-Con M20 (Potassium Chloride) 20 Meq Tab.er.prt 20 Meq PO DAILY Levoxyl (Levothyroxine Sodium) 88 Mcg Tablet 88 Mcg PO DAILY Sennosides 8.6 Mg Tablet 8.6 Mg PO BID Tylenol (Acetaminophen) 325 Mg Tablet 650 Mg PO PRN Q4HRS PRN Klonopin (Clonazepam) 0.5 Mg Tablet 0.5 Mg PO PRN Q6HRS PRN Levaquin (Levofloxacin) 750 Mg Tablet 750 Mg PO DAILY Eucerin Creme (Mineral Oil/Petrolatum,White) 120 Gm Cream..g. 120 Gm TP HS Lasix (Furosemide) 80 Mg Tablet 80 Mg PO DAILY Floranex Tablet (Acidophilus/Bulgaricus) 1 Each Tablet 1 Each PO DAILY Vitamin D2 (Ergocalciferol (Vitamin D2)) 50,000 Unit Capsule 50,000 Unit PO WEEKLY Lantus Solostar (Insulin Glargine,Hum.rec.anlog) 100 Unit/1 Ml Insuln.pen 10 Unit SQ QHS Melatonin 3 Mg Tablet 6 Mg PO HS PRN Mirtazapine 15 Mg Tablet 15 Mg PO HS I have reviewed the current psychotropics carefully including drug interactions. Risk benefit ratio favors no change other than as noted in my dictated progress note. Diagnosis: Problems: (1) Anxiety disorder (2) Dementia in Alzheimer's disease with delusions (3) Schizoaffective disorder, chronic condition with acute exacerbation (4) Impulse control disorder FORTUNATO ECHEVARRIA MD Oct 30, 2018 22:24
[2018-10-30] MEDS: INSULIN GLARGINE 300 UNITS/3 ML INSULN.PEN. SQ SCH (22:49)
[2018-10-30] MEDS: MINERAL OIL/PETROLATUM TOPICAL CREAM 113GM JAR. TP SCH (22:49)
--- NOTE | 2018-10-30 23:43 | PN ---
DATE: 10/29/2018 PSYCHIATRIC PROGRESS NOTE This late entry for 10/29/2018, covers elements not covered in my initial note. SUBJECTIVE: I met with the patient in the evening. The patient slept 5 hours previous night. She was tearful the morning stating she was and was 15 years old, someone is coming with an axe for her, quite paranoid, delusional, later better, talking with staff. Valproic acid level on 11/06/2018 was 68, therapeutic. REVIEW OF SYSTEMS: Ambulation impaired, in wheelchair. No CV, , pulmonary, eye system symptoms on review. She has vague somatic symptoms. MENTAL STATUS EXAM: Oriented reasonably. Speech coherent, pressured at times, repetitively back to see me on rounds. I met with her at least 3 different times. Abstraction fair, computation impaired, language function intact, attention span short. Mood and affect remains anxious, labile, somewhat grandiose. LABORATORY DATA: Reviewed. IMPRESSION: Unchanged from initial note. PLAN: Increase Risperdal from 0.5 mg at bedtime to 1 mg at bedtime. Rest unchanged from initial note. MAN Kati ECHEVARRIA MD DR: JACKIE/jason JOB#: [id number] / [id number]
[2018-10-31 05:52] VITALS: BP 126/81
[2018-10-31] MEDS: LEVOTHYROXINE 88 MCG TABLET PO SCH (06:39)
[2018-10-31] MEDS: LACTOBACILLUS RHAMNOSUS GG 1 CAPSULE. PO SCH (09:54)
[2018-10-31] MEDS: CEPHALEXIN 250 MG CAPSULE PO SCH ×4 (09:54→20:04)
[2018-10-31] MEDS: FUROSEMIDE 80 MG TABLET PO SCH (09:56)
[2018-10-31] MEDS: POTASSIUM CHLORIDE 20 MEQ TABLET.ER. PO SCH (09:56)
[2018-10-31] MEDS: clonazePAM 0.5 MG TABLET PO PRN (09:58)
[2018-10-31 16:39] VITALS: BP 124/66
[2018-10-31] MEDS: risperiDONE 1 MG TABLET. PO SCH (20:04)
[2018-10-31] MEDS: DIVALPROEX ER 500 MG TAB.ER.24H PO SCH (20:04)
[2018-10-31] MEDS: BENZTROPINE MESYLATE 1 MG TABLET PO SCH (20:04)
[2018-10-31] MEDS: MELATONIN 3 MG TABLET PO SCH (20:04)
[2018-10-31] MEDS: traZODone 150 MG TABLET. PO SCH (20:04)
[2018-10-31] MEDS: MIRTAZAPINE 15 MG TABLET PO SCH (20:04)
[2018-10-31] MEDS: MINERAL OIL/PETROLATUM TOPICAL CREAM 113GM JAR. TP SCH (20:05)
[2018-10-31] MEDS: INSULIN GLARGINE 300 UNITS/3 ML INSULN.PEN. SQ SCH (20:07)
--- NOTE | 2018-10-31 22:45 | PDOC ---
Exam Note: Christopher Note: Please also refer to the separate dictated note~for this date of service dictated separately.~Patient seen individually. Discussed the patient with Nursing staff reviewed the chart.~Reviewed interim history and current functioning. Reviewed vital signs,~Labs/ Radiology~and current medications noted below. Continue current treatment with the changes noted in the dictated addendum note Assessment: Vital Signs: Vital Signs Date Time Temp Pulse Resp B/P (MAP) Pulse Ox O2 Delivery O2 Flow Rate FiO2 10/31/18 16:39 97.2 98 20 124/66 (85) 99 10/27/18 06:53 Room Air I&O Intake and Output 10/31/18 06:59 Intake Total 1200 ml Balance 1200 ml Intake Oral 1200 ml Labs: Laboratory Tests Test 10/31/18 07:55 10/31/18 12:20 10/31/18 16:54 10/31/18 19:43 Glucose (Fingerstick) 98 mg/dL (70-99) 87 mg/dL (70-99) 189 mg/dL (70-99) H 250 mg/dL (70-99) H Current Medications: Meds: Current Medications Acetaminophen (Tylenol) 650 mg PRN Q4HRS PRN PO PAIN Last administered on at 08:22; Start 10/20/18 at 21:45 Insulin Glargine (Lantus) 10 units QHS SQ ; Start 10/21/18 at 21:00; Stop at 21:00; Status DC Levothyroxine Sodium (Synthroid) 88 mcg DAILY06 PO Last administered on at 06:39; Start 10/21/18 at 06:00 Multi-Ingred Cream/Lotion/Oil/ Oint (Hydrocerin) 1 lori HS TP Last administered on 10/31/18at 20:05; Start 10/21/18 at 21:00 Potassium Chloride (Klor-Con) 20 meq DAILY PO Last administered on 10/30/18 09 :06; Start 10/21/18 at 09:00 Lactobacillus Rhamnosus (Culturelle) 1 cap DAILY PO Last administered on at 09:54; Start 10/21/18 at 09:00 Cephalexin HCl (Keflex) 500 mg QID PO Last administered on 10/31/18at 20:04; Start 10/21/18 at 09:00 Vitamin D (Vitamin D3) 50,000 unit WEEKLY PO Last administered on 10/27/18 09: 19; Start 10/27/18 at 09:00 Furosemide (Lasix) 80 mg DAILY PO Last administered on 10/30/18 09:06; Start 10/21/18 at 09:00 Levofloxacin (Levaquin) 750 mg DAILY06 PO Last administered on 10/21/18 05:52; Start 10/21/18 at 06:00; Stop 10/21/18 at 18:06; Status DC Sennosides (Senna) 8.6 mg PRN BID PRN PO CONSTIPATION Last administered on 09:26; Start 10/20/18 at 21:45 Clonazepam (KlonoPIN) 0.5 mg PRN Q6HRS PRN PO ANXIETY / AGITATION Last administered on 10/31/18 09:58; Start 10/20/18 at 21:45 Melatonin 6 mg HS PO Last administered on 10/31/18 20:04; Start 10/21/18 at 21: 00 Mirtazapine (Remeron) 15 mg QHS PO Last administered on 10/31/18 20:04; Start 10/21/18 at 21:00 Ziprasidone (Geodon) 60 mg BID PO Last administered on 10/22/18 09:10; Start at 09:00; Stop 10/22/18 at 16:18; Status DC Acetaminophen (Tylenol) 650 mg PRN Q6HRS PRN PO PAIN / TEMP; Start 10/20/18 at 22:30; Status UNV Multi-Ingredient Ointment (Analgesic [place]) 1 lori PRN QID PRN TP MUSCLE PAIN; Start 10/20/18 at 22:30 Al Hydroxide/Mg Hydroxide (Mylanta Plus Xs) 15 ml PRN AFTMEALHC PRN PO DYSPEPSIA; Start 10/20/18 at 22:30 Magnesium Hydroxide (Milk Of Magnesia) 2,400 mg PRN QHS PRN PO CONSTIPATION; Start 10/20/18 at 22:30 Insulin Glargine (Lantus) 10 units QHS SQ Last administered on 10/23/18 20:14; Start 10/20/18 at 23:50; Stop 10/24/18 at 14:52; Status DC Insulin Glargine (Lantus) 300 units STK-MED ONCE SQ ; Start 10/20/18 at 23:49; Stop 10/20/18 at 23:51; Status DC Divalproex Sodium (Depakote Er) 500 mg QHS PO Last administered on 10/23/18 20: 09; Start 10/21/18 at 21:00; Stop 10/24/18 at 17:07; Status DC Penicillin G Benzathine (Bicillin L-A) 1,200,000 unit WEEKLY IM Last administered on 10/28/18 13:33; Start 10/21/18 at 21:00; Stop 10/28/18 at 14:43 ; Status DC Ziprasidone (Geodon) 80 mg BID PO Last administered on 10/27/18 19:38; Start 10/22/18 at 21:00; Stop 10/27/18 at 20:47; Status DC Trazodone HCl (Desyrel) 100 mg QHS PO Last administered on 10/24/18 20:34; Start 10/22/18 at 21:00; Stop 10/25/18 at 16:41; Status DC Olanzapine (ZyPREXA ZYDIS) 5 mg PRN Q2HR PRN PO PSYCHOSIS/AGITATION Last administered on 10/29/18 20:28; Start 10/22/18 at 18:30 Insulin Glargine (Lantus) 15 units QHS SQ Last administered on 10/31/18at 20:07 ; Start 10/24/18 at 21:00 Divalproex Sodium (Depakote Er) 1,000 mg QHS PO Last administered on 10/31/18 20:04; Start 10/24/18 at 21:00 Benztropine Mesylate (Cogentin) 0.5 mg QHS PO Last administered on 10/27/18 19 :38; Start 10/24/18 at 21:00; Stop 10/27/18 at 20:47; Status DC Diphenhydramine HCl (Benadryl) 25 mg PRN Q4HRS PRN PO ITCHING Last administered on 10/25/18 10:34; Start 10/24/18 at 23:30 Trazodone HCl (Desyrel) 150 mg QHS PO Last administered on 10/31/18 20:04; Start 10/25/18 at 21:00 Benztropine Mesylate (Cogentin) 1 mg QHS PO Last administered on 10/31/18 20: 04; Start 10/27/18 at 21:00 Risperidone (RisperDAL) 0.5 mg HS PO Last administered on 10/28/18 20:03; Start 10/27/18 at 21:00; Stop 10/29/18 at 16:52; Status DC Penicillin G Benzathine (Bicillin L-A) 2,400,000 unit WEEKLY IM ; Start at 09:00 Penicillin G Benzathine (Bicillin L-A) 1,200,000 unit 1X ONCE IM ; Start at 15:00; Stop 10/28/18 at 15:06; Status DC Penicillin G Benzathine (Bicillin L-A) 1,200,000 unit 1X ONCE IM Last administered on 10/29/18at 08:04; Start 10/28/18 at 21:00; Stop 10/28/18 at 21:01 ; Status DC Risperidone (RisperDAL) 1 mg HS PO Last administered on 10/31/18 20:04; Start 10/29/18 at 21:00 Active Scripts Active Reported Cephalexin 500 Mg Capsule 500 Mg PO QID Geodon (Ziprasidone Hcl) 20 Mg Capsule 20 Mg PO BID Klor-Con M20 (Potassium Chloride) 20 Meq Tab.er.prt 20 Meq PO DAILY Levoxyl (Levothyroxine Sodium) 88 Mcg Tablet 88 Mcg PO DAILY Sennosides 8.6 Mg Tablet 8.6 Mg PO BID Tylenol (Acetaminophen) 325 Mg Tablet 650 Mg PO PRN Q4HRS PRN Klonopin (Clonazepam) 0.5 Mg Tablet 0.5 Mg PO PRN Q6HRS PRN Levaquin (Levofloxacin) 750 Mg Tablet 750 Mg PO DAILY Eucerin Creme (Mineral Oil/Petrolatum,White) 120 Gm Cream..g. 120 Gm TP HS Lasix (Furosemide) 80 Mg Tablet 80 Mg PO DAILY Floranex Tablet (Acidophilus/Bulgaricus) 1 Each Tablet 1 Each PO DAILY Vitamin D2 (Ergocalciferol (Vitamin D2)) 50,000 Unit Capsule 50,000 Unit PO WEEKLY Lantus Solostar (Insulin Glargine,Hum.rec.anlog) 100 Unit/1 Ml Insuln.pen 10 Unit SQ QHS Melatonin 3 Mg Tablet 6 Mg PO HS PRN Mirtazapine 15 Mg Tablet 15 Mg PO HS I have reviewed the current psychotropics carefully including drug interactions. Risk benefit ratio favors no change other than as noted in my dictated progress note. Diagnosis: Problems: (1) Anxiety disorder (2) Dementia in Alzheimer's disease with delusions (3) Schizoaffective disorder, chronic condition with acute exacerbation (4) Impulse control disorder FORTUNATO ECHEVARRIA MD Oct 31, 2018 22:45
[2018-11-01] MEDS: LEVOTHYROXINE 88 MCG TABLET PO SCH (06:00)
[2018-11-01 06:34] VITALS: BP 130/82
[2018-11-01 08:00] LABS: CREATININE 1.6 mg/dL (0.6-1.0); GFR 31.9; POTASSIUM 4.5 mmol/L (3.5-5.1)
[2018-11-01] MEDS: FUROSEMIDE 80 MG TABLET PO SCH (09:00)
[2018-11-01] MEDS: POTASSIUM CHLORIDE 20 MEQ TABLET.ER. PO SCH (09:00)
[2018-11-01] MEDS: LACTOBACILLUS RHAMNOSUS GG 1 CAPSULE. PO SCH (09:30)
[2018-11-01] MEDS: CEPHALEXIN 250 MG CAPSULE PO SCH ×4 (09:30→21:15)
[2018-11-01] MEDS: clonazePAM 0.5 MG TABLET PO PRN (16:04)
[2018-11-01 16:59] VITALS: BP 142/93
--- NOTE | 2018-11-01 21:13 | PN ---
DATE: 10/30/2018 PSYCHIATRIC PROGRESS NOTE This late entry 10/30/2018 covers elements not covered in my initial note. SUBJECTIVE: I met with the patient in the evening. The patient slept 8 hours previous night, refused her meds previous night, threw water on the floor, anxious, agitated, somewhat grandiose, winked at a male nursing staff, somewhat manic. Received Klonopin, which seemed to help. REVIEW OF SYSTEMS: Ambulation impaired, in wheelchair. No CV, , pulmonary, eye system symptoms on review. MENTAL STATUS EXAM: Oriented to herself and situation. Speech coherent, little pressured, low in volume. Abstraction fair, computation impaired, language function intact, attention span short. Mood and affect somewhat labile, anxious, suspicious. LABORATORY DATA: Reviewed. IMPRESSION: Unchanged from initial note. PLAN: No change from initial note and we are adjusting her Depakote gradually. FORTUNATO ECHEVARRIA MD DR: JACKIE/jason JOB#: [id number] / [id number]
[2018-11-01] MEDS: traZODone 150 MG TABLET. PO SCH (21:14)
[2018-11-01] MEDS: risperiDONE 1 MG TABLET. PO SCH (21:14)
[2018-11-01] MEDS: MELATONIN 3 MG TABLET PO SCH (21:14)
[2018-11-01] MEDS: BENZTROPINE MESYLATE 1 MG TABLET PO SCH (21:14)
[2018-11-01] MEDS: DIVALPROEX ER 500 MG TAB.ER.24H PO SCH (21:14)
--- NOTE | 2018-11-01 21:15 | PN ---
DATE: 10/31/2018 PSYCHIATRIC PROGRESS NOTE This late entry 10/31/2018 covers elements not covered in my initial note. SUBJECTIVE: I met with the patient in the evening. The patient slept 5-3/4 hours previous night. The patient was also staffed at a treatment team meeting earlier in the day. On further review, she slept 5-1/2 hours. BUN and creatinine are elevated, received Klonopin x 2 for anxiety, agitation, tearful, labile at times. REVIEW OF SYSTEMS: Ambulation impaired, in wheelchair. No CV, , pulmonary, eye system symptoms on review. MENTAL STATUS EXAM: Oriented to herself and situation. Speech coherent, rapid at times, low in volume. Abstraction fair, computation impaired, language function intact, attention span short. Mood and affect remain somewhat anxious, grandiose, but less so than before. LABORATORY DATA: Reviewed. IMPRESSION: Bipolar 1 disorder, mixed with psychotic features. Rest unchanged. Valproic acid level is therapeutic at 68. PLAN: Continue psychotropics from initial note for now. MAN Kati ECHEVARRIA MD DR: JACKIE/jason JOB#: [id number] / [id number]
[2018-11-01] MEDS: MIRTAZAPINE 15 MG TABLET PO SCH (21:18)
[2018-11-01] MEDS: INSULIN GLARGINE 300 UNITS/3 ML INSULN.PEN. SQ SCH (21:20)
[2018-11-01] MEDS: MINERAL OIL/PETROLATUM TOPICAL CREAM 113GM JAR. TP SCH (21:21)
--- NOTE | 2018-11-01 22:43 | PDOC ---
Exam Note: Christopher Note: Please also refer to the separate dictated note~for this date of service dictated separately.~Patient seen individually. Discussed the patient with Nursing staff reviewed the chart.~Reviewed interim history and current functioning. Reviewed vital signs,~Labs/ Radiology~and current medications noted below. Continue current treatment with the changes noted in the dictated addendum note Assessment: Vital Signs: Vital Signs Date Time Temp Pulse Resp B/P (MAP) Pulse Ox O2 Delivery O2 Flow Rate FiO2 11/01/18 16:59 97.4 104 20 142/93 (109) 96 Room Air I&O Intake and Output 11/01/18 07:00 Intake Total 720 ml Balance 720 ml Intake Oral 720 ml Labs: Laboratory Tests Test 11/01/18 07:09 11/01/18 07:18 11/01/18 11:50 11/01/18 17:20 Glucose (Fingerstick) 118 mg/dL (70-99) H 180 mg/dL (70-99) H 108 mg/dL (70-99) H Sodium Level 138 mmol/L (136-145) Potassium Level 4.5 mmol/L (3.5-5.1) Chloride Level 102 mmol/L (98-107) Carbon Dioxide Level 31 mmol/L (21-32) Anion Gap 5 (6-14) L Blood Urea Nitrogen 53 mg/dL (7-20) H Creatinine 1.6 mg/dL (0.6-1.0) H Estimated GFR (Cockcroft-Gault) 31.9 Glucose Level 120 mg/dL (70-99) H Calcium Level 9.0 mg/dL (8.5-10.1) Test 11/01/18 19:52 Glucose (Fingerstick) 154 mg/dL (70-99) H Current Medications: Meds: Current Medications Acetaminophen (Tylenol) 650 mg PRN Q4HRS PRN PO PAIN Last administered on at 08:22; Start 10/20/18 at 21:45 Insulin Glargine (Lantus) 10 units QHS SQ ; Start 10/21/18 at 21:00; Stop at 21:00; Status DC Levothyroxine Sodium (Synthroid) 88 mcg DAILY06 PO Last administered on at 06:00; Start 10/21/18 at 06:00 Multi-Ingred Cream/Lotion/Oil/ Oint (Hydrocerin) 1 lori HS TP Last administered on 11/01/18 21:21; Start 10/21/18 at 21:00 Potassium Chloride (Klor-Con) 20 meq DAILY PO Last administered on 10/30/18 09 :06; Start 10/21/18 at 09:00 Lactobacillus Rhamnosus (Culturelle) 1 cap DAILY PO Last administered on 09:30; Start 10/21/18 at 09:00 Cephalexin HCl (Keflex) 500 mg QID PO Last administered on 11/01/18 21:15; Start 10/21/18 at 09:00 Vitamin D (Vitamin D3) 50,000 unit WEEKLY PO Last administered on 10/27/18 09: 19; Start 10/27/18 at 09:00 Furosemide (Lasix) 80 mg DAILY PO Last administered on 10/30/18 09:06; Start 10/21/18 at 09:00 Levofloxacin (Levaquin) 750 mg DAILY06 PO Last administered on 10/21/18 05:52; Start 10/21/18 at 06:00; Stop 10/21/18 at 18:06; Status DC Sennosides (Senna) 8.6 mg PRN BID PRN PO CONSTIPATION Last administered on 09:26; Start 10/20/18 at 21:45 Clonazepam (KlonoPIN) 0.5 mg PRN Q6HRS PRN PO ANXIETY / AGITATION Last administered on 11/01/18 16:04; Start 10/20/18 at 21:45 Melatonin 6 mg HS PO Last administered on 11/01/18 21:14; Start 10/21/18 at 21: 00 Mirtazapine (Remeron) 15 mg QHS PO Last administered on 11/01/18 21:18; Start 10/21/18 at 21:00 Ziprasidone (Geodon) 60 mg BID PO Last administered on 10/22/18 09:10; Start at 09:00; Stop 10/22/18 at 16:18; Status DC Acetaminophen (Tylenol) 650 mg PRN Q6HRS PRN PO PAIN / TEMP; Start 10/20/18 at 22:30; Status UNV Multi-Ingredient Ointment (Analgesic [employer]) 1 lori PRN QID PRN TP MUSCLE PAIN; Start 10/20/18 at 22:30 Al Hydroxide/Mg Hydroxide (Mylanta Plus Xs) 15 ml PRN AFTMEALHC PRN PO DYSPEPSIA; Start 10/20/18 at 22:30 Magnesium Hydroxide (Milk Of Magnesia) 2,400 mg PRN QHS PRN PO CONSTIPATION; Start 10/20/18 at 22:30 Insulin Glargine (Lantus) 10 units QHS SQ Last administered on 10/23/18at 20:14; Start 10/20/18 at 23:50; Stop 10/24/18 at 14:52; Status DC Insulin Glargine (Lantus) 300 units STK-MED ONCE SQ ; Start 10/20/18 at 23:49; Stop 10/20/18 at 23:51; Status DC Divalproex Sodium (Depakote Er) 500 mg QHS PO Last administered on 10/23/18 20: 09; Start 10/21/18 at 21:00; Stop 10/24/18 at 17:07; Status DC Penicillin G Benzathine (Bicillin L-A) 1,200,000 unit WEEKLY IM Last administered on 10/28/18 13:33; Start 10/21/18 at 21:00; Stop 10/28/18 at 14:43 ; Status DC Ziprasidone (Geodon) 80 mg BID PO Last administered on 10/27/18at 19:38; Start 10/22/18 at 21:00; Stop 10/27/18 at 20:47; Status DC Trazodone HCl (Desyrel) 100 mg QHS PO Last administered on 10/24/18 20:34; Start 10/22/18 at 21:00; Stop 10/25/18 at 16:41; Status DC Olanzapine (ZyPREXA ZYDIS) 5 mg PRN Q2HR PRN PO PSYCHOSIS/AGITATION Last administered on 11/01/18 18:13; Start 10/22/18 at 18:30 Insulin Glargine (Lantus) 15 units QHS SQ Last administered on 11/01/18 21:20 ; Start 10/24/18 at 21:00 Divalproex Sodium (Depakote Er) 1,000 mg QHS PO Last administered on 11/01/18 21:14; Start 10/24/18 at 21:00 Benztropine Mesylate (Cogentin) 0.5 mg QHS PO Last administered on 10/27/18at 19 :38; Start 10/24/18 at 21:00; Stop 10/27/18 at 20:47; Status DC Diphenhydramine HCl (Benadryl) 25 mg PRN Q4HRS PRN PO ITCHING Last administered on 10/25/18at 10:34; Start 10/24/18 at 23:30 Trazodone HCl (Desyrel) 150 mg QHS PO Last administered on 11/01/18 21:14; Start 10/25/18 at 21:00 Benztropine Mesylate (Cogentin) 1 mg QHS PO Last administered on 11/01/18 21: 14; Start 10/27/18 at 21:00 Risperidone (RisperDAL) 0.5 mg HS PO Last administered on 10/28/18at 20:03; Start 10/27/18 at 21:00; Stop 10/29/18 at 16:52; Status DC Penicillin G Benzathine (Bicillin L-A) 2,400,000 unit WEEKLY IM ; Start at 09:00 Penicillin G Benzathine (Bicillin L-A) 1,200,000 unit 1X ONCE IM ; Start at 15:00; Stop 10/28/18 at 15:06; Status DC Penicillin G Benzathine (Bicillin L-A) 1,200,000 unit 1X ONCE IM Last administered on 10/29/18at 08:04; Start 10/28/18 at 21:00; Stop 10/28/18 at 21:01 ; Status DC Risperidone (RisperDAL) 1 mg HS PO Last administered on 11/01/18 21:14; Start 10/29/18 at 21:00 Active Scripts Active Reported Cephalexin 500 Mg Capsule 500 Mg PO QID Geodon (Ziprasidone Hcl) 20 Mg Capsule 20 Mg PO BID Klor-Con M20 (Potassium Chloride) 20 Meq Tab.er.prt 20 Meq PO DAILY Levoxyl (Levothyroxine Sodium) 88 Mcg Tablet 88 Mcg PO DAILY Sennosides 8.6 Mg Tablet 8.6 Mg PO BID Tylenol (Acetaminophen) 325 Mg Tablet 650 Mg PO PRN Q4HRS PRN Klonopin (Clonazepam) 0.5 Mg Tablet 0.5 Mg PO PRN Q6HRS PRN Levaquin (Levofloxacin) 750 Mg Tablet 750 Mg PO DAILY Eucerin Creme (Mineral Oil/Petrolatum,White) 120 Gm Cream..g. 120 Gm TP HS Lasix (Furosemide) 80 Mg Tablet 80 Mg PO DAILY Floranex Tablet (Acidophilus/Bulgaricus) 1 Each Tablet 1 Each PO DAILY Vitamin D2 (Ergocalciferol (Vitamin D2)) 50,000 Unit Capsule 50,000 Unit PO WEEKLY Lantus Solostar (Insulin Glargine,Hum.rec.anlog) 100 Unit/1 Ml Insuln.pen 10 Unit SQ QHS Melatonin 3 Mg Tablet 6 Mg PO HS PRN Mirtazapine 15 Mg Tablet 15 Mg PO HS I have reviewed the current psychotropics carefully including drug interactions. Risk benefit ratio favors no change other than as noted in my dictated progress note. Diagnosis: Problems: (1) Anxiety disorder (2) Dementia in Alzheimer's disease with delusions (3) Schizoaffective disorder, chronic condition with acute exacerbation (4) Impulse control disorder FORTUNATO ECHEVARRIA MD Nov 01, 2018 22:43
[2018-11-02] MEDS: LEVOTHYROXINE 88 MCG TABLET PO SCH (06:31)
[2018-11-02 07:01] VITALS: BP 145/82
[2018-11-02] MEDS: FUROSEMIDE 80 MG TABLET PO SCH (09:15)
[2018-11-02] MEDS: CEPHALEXIN 250 MG CAPSULE PO SCH ×4 (09:15→20:42)
[2018-11-02] MEDS: POTASSIUM CHLORIDE 20 MEQ TABLET.ER. PO SCH (09:15)
[2018-11-02] MEDS: clonazePAM 0.5 MG TABLET PO PRN (09:16)
[2018-11-02] MEDS: LACTOBACILLUS RHAMNOSUS GG 1 CAPSULE. PO SCH (09:16)
[2018-11-02 16:16] VITALS: BP 138/85
[2018-11-02] MEDS: MELATONIN 3 MG TABLET PO SCH (20:41)
[2018-11-02] MEDS: traZODone 150 MG TABLET. PO SCH (20:41)
[2018-11-02] MEDS: BENZTROPINE MESYLATE 1 MG TABLET PO SCH (20:42)
[2018-11-02] MEDS: risperiDONE 1 MG TABLET. PO SCH (20:42)
[2018-11-02] MEDS: DIVALPROEX ER 500 MG TAB.ER.24H PO SCH (20:42)
[2018-11-02] MEDS: MIRTAZAPINE 15 MG TABLET PO SCH (20:42)
[2018-11-02] MEDS: INSULIN GLARGINE 300 UNITS/3 ML INSULN.PEN. SQ SCH (20:43)
[2018-11-02] MEDS: MINERAL OIL/PETROLATUM TOPICAL CREAM 113GM JAR. TP SCH (20:45)
--- NOTE | 2018-11-02 22:03 | PDOC ---
Exam Note: Christopher Note: Please also refer to the separate dictated note~for this date of service dictated separately.~Patient seen individually. Discussed the patient with Nursing staff reviewed the chart.~Reviewed interim history and current functioning. Reviewed vital signs,~Labs/ Radiology~and current medications noted below. Continue current treatment with the changes noted in the dictated addendum note Assessment: Vital Signs: Vital Signs Date Time Temp Pulse Resp B/P (MAP) Pulse Ox O2 Delivery O2 Flow Rate FiO2 11/02/18 16:16 97.6 112 18 138/85 (102) 99 11/01/18 16:59 Room Air I&O Intake and Output 11/02/18 07:00 Intake Total 1080 ml Balance 1080 ml Intake Oral 1080 ml # Bowel Movements 2 Labs: Laboratory Tests Test 11/02/18 07:13 11/02/18 11:50 11/02/18 16:50 11/02/18 19:12 Glucose (Fingerstick) 127 mg/dL (70-99) H 145 mg/dL (70-99) H 107 mg/dL (70-99) H 155 mg/dL (70-99) H Current Medications: Meds: Current Medications Acetaminophen (Tylenol) 650 mg PRN Q4HRS PRN PO PAIN Last administered on 08:22; Start 10/20/18 at 21:45 Insulin Glargine (Lantus) 10 units QHS SQ ; Start 10/21/18 at 21:00; Stop at 21:00; Status DC Levothyroxine Sodium (Synthroid) 88 mcg DAILY06 PO Last administered on at 06:31; Start 10/21/18 at 06:00 Multi-Ingred Cream/Lotion/Oil/ Oint (Hydrocerin) 1 lori HS TP Last administered on 11/02/18at 20:45; Start 10/21/18 at 21:00 Potassium Chloride (Klor-Con) 20 meq DAILY PO Last administered on 11/02/18 09 :15; Start 10/21/18 at 09:00 Lactobacillus Rhamnosus (Culturelle) 1 cap DAILY PO Last administered on 09:16; Start 10/21/18 at 09:00 Cephalexin HCl (Keflex) 500 mg QID PO Last administered on 11/02/18at 20:42; Start 10/21/18 at 09:00 Vitamin D (Vitamin D3) 50,000 unit WEEKLY PO Last administered on 10/27/18 09: 19; Start 10/27/18 at 09:00 Furosemide (Lasix) 80 mg DAILY PO Last administered on 11/02/18 09:15; Start 10/21/18 at 09:00 Levofloxacin (Levaquin) 750 mg DAILY06 PO Last administered on 10/21/18 05:52; Start 10/21/18 at 06:00; Stop 10/21/18 at 18:06; Status DC Sennosides (Senna) 8.6 mg PRN BID PRN PO CONSTIPATION Last administered on 09:26; Start 10/20/18 at 21:45 Clonazepam (KlonoPIN) 0.5 mg PRN Q6HRS PRN PO ANXIETY / AGITATION Last administered on 11/02/18 09:16; Start 10/20/18 at 21:45 Melatonin 6 mg HS PO Last administered on 11/02/18 20:41; Start 10/21/18 at 21: 00 Mirtazapine (Remeron) 15 mg QHS PO Last administered on 11/02/18 20:42; Start 10/21/18 at 21:00 Ziprasidone (Geodon) 60 mg BID PO Last administered on 10/22/18 09:10; Start at 09:00; Stop 10/22/18 at 16:18; Status DC Acetaminophen (Tylenol) 650 mg PRN Q6HRS PRN PO PAIN / TEMP; Start 10/20/18 at 22:30; Status UNV Multi-Ingredient Ointment (Analgesic [place]) 1 lori PRN QID PRN TP MUSCLE PAIN; Start 10/20/18 at 22:30 Al Hydroxide/Mg Hydroxide (Mylanta Plus Xs) 15 ml PRN AFTMEALHC PRN PO DYSPEPSIA; Start 10/20/18 at 22:30 Magnesium Hydroxide (Milk Of Magnesia) 2,400 mg PRN QHS PRN PO CONSTIPATION; Start 10/20/18 at 22:30 Insulin Glargine (Lantus) 10 units QHS SQ Last administered on 10/23/18 20:14; Start 10/20/18 at 23:50; Stop 10/24/18 at 14:52; Status DC Insulin Glargine (Lantus) 300 units STK-MED ONCE SQ ; Start 10/20/18 at 23:49; Stop 10/20/18 at 23:51; Status DC Divalproex Sodium (Depakote Er) 500 mg QHS PO Last administered on 10/23/18 20: 09; Start 10/21/18 at 21:00; Stop 10/24/18 at 17:07; Status DC Penicillin G Benzathine (Bicillin L-A) 1,200,000 unit WEEKLY IM Last administered on 10/28/18at 13:33; Start 10/21/18 at 21:00; Stop 10/28/18 at 14:43 ; Status DC Ziprasidone (Geodon) 80 mg BID PO Last administered on 10/27/18 19:38; Start 10/22/18 at 21:00; Stop 10/27/18 at 20:47; Status DC Trazodone HCl (Desyrel) 100 mg QHS PO Last administered on 10/24/18 20:34; Start 10/22/18 at 21:00; Stop 10/25/18 at 16:41; Status DC Olanzapine (ZyPREXA ZYDIS) 5 mg PRN Q2HR PRN PO PSYCHOSIS/AGITATION Last administered on 11/01/18 18:13; Start 10/22/18 at 18:30 Insulin Glargine (Lantus) 15 units QHS SQ Last administered on 11/02/18at 20:43 ; Start 10/24/18 at 21:00 Divalproex Sodium (Depakote Er) 1,000 mg QHS PO Last administered on 11/02/18 20:42; Start 10/24/18 at 21:00 Benztropine Mesylate (Cogentin) 0.5 mg QHS PO Last administered on 10/27/18 19 :38; Start 10/24/18 at 21:00; Stop 10/27/18 at 20:47; Status DC Diphenhydramine HCl (Benadryl) 25 mg PRN Q4HRS PRN PO ITCHING Last administered on 10/25/18at 10:34; Start 10/24/18 at 23:30 Trazodone HCl (Desyrel) 150 mg QHS PO Last administered on 11/02/18at 20:41; Start 10/25/18 at 21:00 Benztropine Mesylate (Cogentin) 1 mg QHS PO Last administered on 11/02/18at 20: 42; Start 10/27/18 at 21:00 Risperidone (RisperDAL) 0.5 mg HS PO Last administered on 10/28/18at 20:03; Start 10/27/18 at 21:00; Stop 10/29/18 at 16:52; Status DC Penicillin G Benzathine (Bicillin L-A) 2,400,000 unit WEEKLY IM ; Start at 09:00 Penicillin G Benzathine (Bicillin L-A) 1,200,000 unit 1X ONCE IM ; Start at 15:00; Stop 10/28/18 at 15:06; Status DC Penicillin G Benzathine (Bicillin L-A) 1,200,000 unit 1X ONCE IM Last administered on 10/29/18at 08:04; Start 10/28/18 at 21:00; Stop 10/28/18 at 21:01 ; Status DC Risperidone (RisperDAL) 1 mg HS PO Last administered on 11/02/18 20:42; Start 10/29/18 at 21:00 Active Scripts Active Reported Cephalexin 500 Mg Capsule 500 Mg PO QID Geodon (Ziprasidone Hcl) 20 Mg Capsule 20 Mg PO BID Klor-Con M20 (Potassium Chloride) 20 Meq Tab.er.prt 20 Meq PO DAILY Levoxyl (Levothyroxine Sodium) 88 Mcg Tablet 88 Mcg PO DAILY Sennosides 8.6 Mg Tablet 8.6 Mg PO BID Tylenol (Acetaminophen) 325 Mg Tablet 650 Mg PO PRN Q4HRS PRN Klonopin (Clonazepam) 0.5 Mg Tablet 0.5 Mg PO PRN Q6HRS PRN Levaquin (Levofloxacin) 750 Mg Tablet 750 Mg PO DAILY Eucerin Creme (Mineral Oil/Petrolatum,White) 120 Gm Cream..g. 120 Gm TP HS Lasix (Furosemide) 80 Mg Tablet 80 Mg PO DAILY Floranex Tablet (Acidophilus/Bulgaricus) 1 Each Tablet 1 Each PO DAILY Vitamin D2 (Ergocalciferol (Vitamin D2)) 50,000 Unit Capsule 50,000 Unit PO WEEKLY Lantus Solostar (Insulin Glargine,Hum.rec.anlog) 100 Unit/1 Ml Insuln.pen 10 Unit SQ QHS Melatonin 3 Mg Tablet 6 Mg PO HS PRN Mirtazapine 15 Mg Tablet 15 Mg PO HS I have reviewed the current psychotropics carefully including drug interactions. Risk benefit ratio favors no change other than as noted in my dictated progress note. Diagnosis: Problems: (1) Anxiety disorder (2) Dementia in Alzheimer's disease with delusions (3) Schizoaffective disorder, chronic condition with acute exacerbation (4) Impulse control disorder FORTUNATO ECHEVARRIA MD Nov 02, 2018 22:03
[2018-11-03] MEDS: LEVOTHYROXINE 88 MCG TABLET PO SCH (05:33)
[2018-11-03 06:01] VITALS: BP 122/86
[2018-11-03] MEDS: CEPHALEXIN 250 MG CAPSULE PO SCH (08:40)
[2018-11-03] MEDS: LACTOBACILLUS RHAMNOSUS GG 1 CAPSULE. PO SCH ×2 (08:40→19:50)
[2018-11-03] MEDS: CHOLECALCIFEROL (VITAMIN D3) 50,000 UNIT CAPSULE PO SCH (08:40)
[2018-11-03] MEDS: FUROSEMIDE 80 MG TABLET PO SCH (08:41)
[2018-11-03] MEDS: POTASSIUM CHLORIDE 20 MEQ TABLET.ER. PO SCH (08:41)
[2018-11-03 16:23] VITALS: BP 136/84
[2018-11-03] MEDS: DIVALPROEX ER 500 MG TAB.ER.24H PO SCH (19:50)
[2018-11-03] MEDS: traZODone 150 MG TABLET. PO SCH (19:50)
[2018-11-03] MEDS: MELATONIN 3 MG TABLET PO SCH (19:50)
[2018-11-03] MEDS: risperiDONE 1 MG TABLET. PO SCH (19:50)
[2018-11-03] MEDS: MIRTAZAPINE 15 MG TABLET PO SCH (19:50)
[2018-11-03] MEDS: BENZTROPINE MESYLATE 1 MG TABLET PO SCH (19:50)
[2018-11-03] MEDS: INSULIN GLARGINE 300 UNITS/3 ML INSULN.PEN. SQ SCH (19:52)
[2018-11-03] MEDS: MINERAL OIL/PETROLATUM TOPICAL CREAM 113GM JAR. TP SCH (19:52)
--- NOTE | 2018-11-03 22:43 | PDOC ---
Exam Note: Christopher Note: Please also refer to the separate dictated note~for this date of service dictated separately.~Patient seen individually. Discussed the patient with Nursing staff reviewed the chart.~Reviewed interim history and current functioning. Reviewed vital signs,~Labs/ Radiology~and current medications noted below. Continue current treatment with the changes noted in the dictated addendum note Assessment: Vital Signs: Vital Signs Date Time Temp Pulse Resp B/P (MAP) Pulse Ox O2 Delivery O2 Flow Rate FiO2 11/03/18 16:23 97.3 116 20 136/84 (101) 98 11/01/18 16:59 Room Air I&O Intake and Output 11/03/18 07:00 Intake Total 1220 ml Balance 1220 ml Intake Oral 1220 ml Labs: Laboratory Tests Test 11/03/18 07:24 11/03/18 11:09 11/03/18 16:50 11/03/18 19:27 Glucose (Fingerstick) 118 mg/dL (70-99) H 127 mg/dL (70-99) H 162 mg/dL (70-99) H 246 mg/dL (70-99) H Current Medications: Meds: Current Medications Acetaminophen (Tylenol) 650 mg PRN Q4HRS PRN PO PAIN Last administered on 08:22; Start 10/20/18 at 21:45 Insulin Glargine (Lantus) 10 units QHS SQ ; Start 10/21/18 at 21:00; Stop at 21:00; Status DC Levothyroxine Sodium (Synthroid) 88 mcg DAILY06 PO Last administered on at 05:33; Start 10/21/18 at 06:00 Multi-Ingred Cream/Lotion/Oil/ Oint (Hydrocerin) 1 lori HS TP Last administered on 11/03/18at 19:52; Start 10/21/18 at 21:00 Potassium Chloride (Klor-Con) 20 meq DAILY PO Last administered on 11/03/18at 08 :41; Start 10/21/18 at 09:00 Lactobacillus Rhamnosus (Culturelle) 1 cap DAILY PO Last administered on at 19:50; Start 10/21/18 at 09:00 Cephalexin HCl (Keflex) 500 mg QID PO Last administered on 11/03/18at 08:40; Start 10/21/18 at 09:00; Stop 11/03/18 at 16:03; Status DC Vitamin D (Vitamin D3) 50,000 unit WEEKLY PO Last administered on 11/03/18 08: 40; Start 10/27/18 at 09:00 Furosemide (Lasix) 80 mg DAILY PO Last administered on 11/03/18 08:41; Start 10/21/18 at 09:00 Levofloxacin (Levaquin) 750 mg DAILY06 PO Last administered on 10/21/18 05:52; Start 10/21/18 at 06:00; Stop 10/21/18 at 18:06; Status DC Sennosides (Senna) 8.6 mg PRN BID PRN PO CONSTIPATION Last administered on 09:26; Start 10/20/18 at 21:45 Clonazepam (KlonoPIN) 0.5 mg PRN Q6HRS PRN PO ANXIETY / AGITATION Last administered on 11/02/18 09:16; Start 10/20/18 at 21:45; Stop 11/03/18 at 08:03 ; Status DC Melatonin 6 mg HS PO Last administered on 11/03/18 19:50; Start 10/21/18 at 21: 00 Mirtazapine (Remeron) 15 mg QHS PO Last administered on 11/03/18 19:50; Start 10/21/18 at 21:00 Ziprasidone (Geodon) 60 mg BID PO Last administered on 10/22/18 09:10; Start at 09:00; Stop 10/22/18 at 16:18; Status DC Acetaminophen (Tylenol) 650 mg PRN Q6HRS PRN PO PAIN / TEMP; Start 10/20/18 at 22:30; Status UNV Multi-Ingredient Ointment (Analgesic [place]) 1 lori PRN QID PRN TP MUSCLE PAIN; Start 10/20/18 at 22:30 Al Hydroxide/Mg Hydroxide (Mylanta Plus Xs) 15 ml PRN AFTMEALHC PRN PO DYSPEPSIA; Start 10/20/18 at 22:30 Magnesium Hydroxide (Milk Of Magnesia) 2,400 mg PRN QHS PRN PO CONSTIPATION; Start 10/20/18 at 22:30 Insulin Glargine (Lantus) 10 units QHS SQ Last administered on 10/23/18 20:14; Start 10/20/18 at 23:50; Stop 10/24/18 at 14:52; Status DC Insulin Glargine (Lantus) 300 units STK-MED ONCE SQ ; Start 10/20/18 at 23:49; Stop 10/20/18 at 23:51; Status DC Divalproex Sodium (Depakote Er) 500 mg QHS PO Last administered on 10/23/18 20: 09; Start 10/21/18 at 21:00; Stop 10/24/18 at 17:07; Status DC Penicillin G Benzathine (Bicillin L-A) 1,200,000 unit WEEKLY IM Last administered on 10/28/18 13:33; Start 10/21/18 at 21:00; Stop 10/28/18 at 14:43 ; Status DC Ziprasidone (Geodon) 80 mg BID PO Last administered on 10/27/18 19:38; Start 10/22/18 at 21:00; Stop 10/27/18 at 20:47; Status DC Trazodone HCl (Desyrel) 100 mg QHS PO Last administered on 10/24/18 20:34; Start 10/22/18 at 21:00; Stop 10/25/18 at 16:41; Status DC Olanzapine (ZyPREXA ZYDIS) 5 mg PRN Q2HR PRN PO PSYCHOSIS/AGITATION Last administered on 11/01/18 18:13; Start 10/22/18 at 18:30 Insulin Glargine (Lantus) 15 units QHS SQ Last administered on 11/03/18at 19:52 ; Start 10/24/18 at 21:00 Divalproex Sodium (Depakote Er) 1,000 mg QHS PO Last administered on 11/03/18 19:50; Start 10/24/18 at 21:00 Benztropine Mesylate (Cogentin) 0.5 mg QHS PO Last administered on 10/27/18 19 :38; Start 10/24/18 at 21:00; Stop 10/27/18 at 20:47; Status DC Diphenhydramine HCl (Benadryl) 25 mg PRN Q4HRS PRN PO ITCHING Last administered on 10/25/18at 10:34; Start 10/24/18 at 23:30 Trazodone HCl (Desyrel) 150 mg QHS PO Last administered on 11/03/18at 19:50; Start 10/25/18 at 21:00 Benztropine Mesylate (Cogentin) 1 mg QHS PO Last administered on 11/03/18at 19: 50; Start 10/27/18 at 21:00 Risperidone (RisperDAL) 0.5 mg HS PO Last administered on 10/28/18at 20:03; Start 10/27/18 at 21:00; Stop 10/29/18 at 16:52; Status DC Penicillin G Benzathine (Bicillin L-A) 2,400,000 unit WEEKLY IM ; Start at 09:00 Penicillin G Benzathine (Bicillin L-A) 1,200,000 unit 1X ONCE IM ; Start at 15:00; Stop 10/28/18 at 15:06; Status DC Penicillin G Benzathine (Bicillin L-A) 1,200,000 unit 1X ONCE IM Last administered on 10/29/18at 08:04; Start 10/28/18 at 21:00; Stop 10/28/18 at 21:01 ; Status DC Risperidone (RisperDAL) 1 mg HS PO Last administered on 11/03/18at 19:50; Start 10/29/18 at 21:00 Active Scripts Active Reported Cephalexin 500 Mg Capsule 500 Mg PO QID Geodon (Ziprasidone Hcl) 20 Mg Capsule 20 Mg PO BID Klor-Con M20 (Potassium Chloride) 20 Meq Tab.er.prt 20 Meq PO DAILY Levoxyl (Levothyroxine Sodium) 88 Mcg Tablet 88 Mcg PO DAILY Sennosides 8.6 Mg Tablet 8.6 Mg PO BID Tylenol (Acetaminophen) 325 Mg Tablet 650 Mg PO PRN Q4HRS PRN Klonopin (Clonazepam) 0.5 Mg Tablet 0.5 Mg PO PRN Q6HRS PRN Levaquin (Levofloxacin) 750 Mg Tablet 750 Mg PO DAILY Eucerin Creme (Mineral Oil/Petrolatum,White) 120 Gm Cream..g. 120 Gm TP HS Lasix (Furosemide) 80 Mg Tablet 80 Mg PO DAILY Floranex Tablet (Acidophilus/Bulgaricus) 1 Each Tablet 1 Each PO DAILY Vitamin D2 (Ergocalciferol (Vitamin D2)) 50,000 Unit Capsule 50,000 Unit PO WEEKLY Lantus Solostar (Insulin Glargine,Hum.rec.anlog) 100 Unit/1 Ml Insuln.pen 10 Unit SQ QHS Melatonin 3 Mg Tablet 6 Mg PO HS PRN Mirtazapine 15 Mg Tablet 15 Mg PO HS I have reviewed the current psychotropics carefully including drug interactions. Risk benefit ratio favors no change other than as noted in my dictated progress note. Diagnosis: Problems: (1) Anxiety disorder (2) Dementia in Alzheimer's disease with delusions (3) Schizoaffective disorder, chronic condition with acute exacerbation (4) Impulse control disorder FORTUNATO ECHEVARRIA MD Nov 03, 2018 22:43
--- NOTE | 2018-11-03 23:35 | PN ---
DATE: 11/02/2018 PSYCHIATRIC PROGRESS NOTE This late entry 11/02/2018 covers elements not covered in my initial note. SUBJECTIVE: I met with the patient in the evening. The patient slept 5-3/4 hours previous night. In the morning, she was cursing, anxious, demanding, received Klonopin and then was quite sedated, urinated on herself. REVIEW OF SYSTEMS: Ambulation impaired, in wheelchair. No CV, , pulmonary, eye system symptoms on review. MENTAL STATUS EXAM: Oriented reasonably. Speech coherent, rapid at times. Abstraction fair, computation impaired, language function intact, attention span short. Mood and affect remains labile. LABORATORY DATA: Reviewed. IMPRESSION: Unchanged from initial note. PLAN: We will stop the Klonopin 0.5 mg p.r.n. Continue Zyprexa p.r.n. Rest of the psychotropics unchanged. May need to increase Risperdal gradually. FORTUNATO ECHEVARRIA MD DR: JACKIE/jason JOB#: [id number] / [id number]
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
[2018-11-04] MEDS: LEVOTHYROXINE 88 MCG TABLET PO SCH (05:29)
[2018-11-04 06:22] VITALS: BP 147/99
[2018-11-04] MEDS: FUROSEMIDE 80 MG TABLET PO SCH (08:36)
[2018-11-04] MEDS: POTASSIUM CHLORIDE 20 MEQ TABLET.ER. PO SCH (08:36)
[2018-11-04] MEDS: busPIRone 5 MG TABLET. PO SCH ×3 (08:37→16:55)
[2018-11-04] MEDS ORDERED: PENICILLIN G BENZATHINE LA 1,200,000 UNIT/2 ML DISP.SYRIN. IM SCH (09:00)
[2018-11-04] MEDS ORDERED: DIVA500T4 PO (14:06)
[2018-11-04] MEDS ORDERED: BENZ1TAB5 PO (14:06)
[2018-11-04] MEDS ORDERED: MAG355OR17 PO (14:07)
[2018-11-04] MEDS ORDERED: MAGN2400 PO (14:08)
[2018-11-04] MEDS ORDERED: METH29OI TP (14:09)
[2018-11-04] MEDS ORDERED: OLAN5TAB5 PO (14:12)
[2018-11-04] MEDS ORDERED: BUSP5TAB PO (14:14)
[2018-11-04] MEDS ORDERED: DIPH25CA58 PO (14:16)
[2018-11-04] MEDS ORDERED: RISP1TAB43 PO (14:18)
[2018-11-04] MEDS ORDERED: TRAZ150T49 PO (14:19)
[2018-11-04 16:27] VITALS: BP 126/78
[2018-11-04] MEDS ORDERED: DEXTROSE 50% 25 GM / 50ML DISP.SYRIN. IV PRN (19:30)
[2018-11-04] MEDS: LACTOBACILLUS RHAMNOSUS GG 1 CAPSULE. PO SCH (20:18)
[2018-11-04] MEDS: traZODone 150 MG TABLET. PO SCH (20:18)
[2018-11-04] MEDS: MINERAL OIL/PETROLATUM TOPICAL CREAM 113GM JAR. TP SCH (20:19)
[2018-11-04] MEDS: MIRTAZAPINE 15 MG TABLET PO SCH (20:19)
[2018-11-04] MEDS: DIVALPROEX ER 500 MG TAB.ER.24H PO SCH (20:19)
[2018-11-04] MEDS: BENZTROPINE MESYLATE 1 MG TABLET PO SCH (20:19)
[2018-11-04] MEDS: risperiDONE 1 MG TABLET. PO SCH (20:19)
[2018-11-04] MEDS: MELATONIN 3 MG TABLET PO SCH (20:19)
[2018-11-04] MEDS ORDERED: INSULIN GLARGINE 300 UNITS/3 ML INSULN.PEN. SQ SCH (21:00)
[2018-11-04] MEDS ORDERED: [UNRECOGNIZED DRUG - CODE] IM (21:36)
[2018-11-04] MEDS ORDERED: INSU100I11 SQ (21:45)
--- NOTE | 2018-11-04 22:31 | PDOC ---
Exam Note: Christopher Note: Please also refer to the separate dictated note~for this date of service dictated separately.~Patient seen individually. Discussed the patient with Nursing staff reviewed the chart.~Reviewed interim history and current functioning. Reviewed vital signs,~Labs/ Radiology~and current medications noted below. Continue current treatment with the changes noted in the dictated addendum note Assessment: Vital Signs: Vital Signs Date Time Temp Pulse Resp B/P (MAP) Pulse Ox O2 Delivery O2 Flow Rate FiO2 11/04/18 16:27 97.7 112 18 126/78 (94) 99 11/01/18 16:59 Room Air I&O Intake and Output 11/04/18 07:00 Intake Total 1320 ml Balance 1320 ml Intake Oral 1320 ml Labs: Laboratory Tests Test 11/04/18 07:09 11/04/18 11:46 11/04/18 16:37 11/04/18 19:14 Glucose (Fingerstick) 395 mg/dL (70-99) H 148 mg/dL (70-99) H 142 mg/dL (70-99) H 184 mg/dL (70-99) H Current Medications: Meds: Current Medications Acetaminophen (Tylenol) 650 mg PRN Q4HRS PRN PO PAIN Last administered on 08:22; Start 10/20/18 at 21:45 Insulin Glargine (Lantus) 10 units QHS SQ ; Start 10/21/18 at 21:00; Stop at 21:00; Status DC Levothyroxine Sodium (Synthroid) 88 mcg DAILY06 PO Last administered on at 05:29; Start 10/21/18 at 06:00 Multi-Ingred Cream/Lotion/Oil/ Oint (Hydrocerin) 1 rogelio HS TP Last administered on 11/04/18at 20:19; Start 10/21/18 at 21:00 Potassium Chloride (Klor-Con) 20 meq DAILY PO Last administered on 11/04/18at 08 :36; Start 10/21/18 at 09:00 Lactobacillus Rhamnosus (Culturelle) 1 cap DAILY PO Last administered on at 20:18; Start 10/21/18 at 09:00 Cephalexin HCl (Keflex) 500 mg QID PO Last administered on 11/03/18at 08:40; Start 10/21/18 at 09:00; Stop 11/03/18 at 16:03; Status DC Vitamin D (Vitamin D3) 50,000 unit WEEKLY PO Last administered on 11/03/18 08: 40; Start 10/27/18 at 09:00 Furosemide (Lasix) 80 mg DAILY PO Last administered on 11/04/18 08:36; Start 10/21/18 at 09:00 Levofloxacin (Levaquin) 750 mg DAILY06 PO Last administered on 10/21/18 05:52; Start 10/21/18 at 06:00; Stop 10/21/18 at 18:06; Status DC Sennosides (Senna) 8.6 mg PRN BID PRN PO CONSTIPATION Last administered on 09:26; Start 10/20/18 at 21:45 Clonazepam (KlonoPIN) 0.5 mg PRN Q6HRS PRN PO ANXIETY / AGITATION Last administered on 11/02/18 09:16; Start 10/20/18 at 21:45; Stop 11/03/18 at 08:03 ; Status DC Melatonin 6 mg HS PO Last administered on 11/04/18 20:19; Start 10/21/18 at 21: 00 Mirtazapine (Remeron) 15 mg QHS PO Last administered on 11/04/18 20:19; Start 10/21/18 at 21:00 Ziprasidone (Geodon) 60 mg BID PO Last administered on 10/22/18 09:10; Start at 09:00; Stop 10/22/18 at 16:18; Status DC Acetaminophen (Tylenol) 650 mg PRN Q6HRS PRN PO PAIN / TEMP; Start 10/20/18 at 22:30; Status UNV Multi-Ingredient Ointment (Analgesic [place]) 1 rogleio PRN QID PRN TP MUSCLE PAIN; Start 10/20/18 at 22:30 Al Hydroxide/Mg Hydroxide (Mylanta Plus Xs) 15 ml PRN AFTMEALHC PRN PO DYSPEPSIA; Start 10/20/18 at 22:30 Magnesium Hydroxide (Milk Of Magnesia) 2,400 mg PRN QHS PRN PO CONSTIPATION; Start 10/20/18 at 22:30 Insulin Glargine (Lantus) 10 units QHS SQ Last administered on 10/23/18 20:14; Start 10/20/18 at 23:50; Stop 10/24/18 at 14:52; Status DC Insulin Glargine (Lantus) 300 units STK-MED ONCE SQ ; Start 10/20/18 at 23:49; Stop 10/20/18 at 23:51; Status DC Divalproex Sodium (Depakote Er) 500 mg QHS PO Last administered on 10/23/18 20: 09; Start 10/21/18 at 21:00; Stop 10/24/18 at 17:07; Status DC Penicillin G Benzathine (Bicillin L-A) 1,200,000 unit WEEKLY IM Last administered on 10/28/18 13:33; Start 10/21/18 at 21:00; Stop 10/28/18 at 14:43 ; Status DC Ziprasidone (Geodon) 80 mg BID PO Last administered on 10/27/18 19:38; Start 10/22/18 at 21:00; Stop 10/27/18 at 20:47; Status DC Trazodone HCl (Desyrel) 100 mg QHS PO Last administered on 10/24/18 20:34; Start 10/22/18 at 21:00; Stop 10/25/18 at 16:41; Status DC Olanzapine (ZyPREXA ZYDIS) 5 mg PRN Q2HR PRN PO PSYCHOSIS/AGITATION Last administered on 11/01/18 18:13; Start 10/22/18 at 18:30 Insulin Glargine (Lantus) 15 units QHS SQ Last administered on 11/03/18at 19:52 ; Start 10/24/18 at 21:00; Stop 11/04/18 at 19:28; Status DC Divalproex Sodium (Depakote Er) 1,000 mg QHS PO Last administered on 11/04/18 20:19; Start 10/24/18 at 21:00 Benztropine Mesylate (Cogentin) 0.5 mg QHS PO Last administered on 10/27/18at 19 :38; Start 10/24/18 at 21:00; Stop 10/27/18 at 20:47; Status DC Diphenhydramine HCl (Benadryl) 25 mg PRN Q4HRS PRN PO ITCHING Last administered on 10/25/18at 10:34; Start 10/24/18 at 23:30 Trazodone HCl (Desyrel) 150 mg QHS PO Last administered on 11/04/18at 20:18; Start 10/25/18 at 21:00 Benztropine Mesylate (Cogentin) 1 mg QHS PO Last administered on 11/04/18 20: 19; Start 10/27/18 at 21:00 Risperidone (RisperDAL) 0.5 mg HS PO Last administered on 10/28/18at 20:03; Start 10/27/18 at 21:00; Stop 10/29/18 at 16:52; Status DC Penicillin G Benzathine (Bicillin L-A) 2,400,000 unit WEEKLY IM Last administered on 11/04/18at 08:36; Start 11/04/18 at 09:00; Stop 11/12/18 at 08:59 Penicillin G Benzathine (Bicillin L-A) 1,200,000 unit 1X ONCE IM ; Start at 15:00; Stop 10/28/18 at 15:06; Status DC Penicillin G Benzathine (Bicillin L-A) 1,200,000 unit 1X ONCE IM Last administered on 10/29/18at 08:04; Start 10/28/18 at 21:00; Stop 10/28/18 at 21:01 ; Status DC Risperidone (RisperDAL) 1 mg HS PO Last administered on 11/04/18at 20:19; Start 10/29/18 at 21:00 Buspirone HCl (Buspar) 5 mg TID@0900,1300,1700 PO Last administered on at 16:55; Start 11/04/18 at 09:00 Insulin Glargine (Lantus) 25 units QHS SQ Last administered on 11/04/18at 20:22 ; Start 11/04/18 at 21:00 Insulin Human Lispro (HumaLOG) 0-7 UNITS TIDWMEALS SQ ; Start 11/05/18 at 08:00 Dextrose 12.5 gm PRN Q15MIN PRN IV SEE COMMENTS; Start 11/04/18 at 19:30 Active Scripts Active Reported Humalog (Insulin Lispro) 100 Unit/1 Ml Insuln.pen 100 Unit SQ TIDWMEALS Bicillin L-A (Penicillin G Benzathine) 2,400,000 Unit/4 Ml Disp.syrin 2,400,000 Unit IM ONCE Trazodone Hcl 150 Mg Tablet 1 Tab PO QHS Risperdal (Risperidone) 1 Mg Tablet 1 Mg PO QHS Benadryl (Diphenhydramine Hcl) 25 Mg Capsule 1 Cap PO PRN Q4HRS PRN Buspirone Hcl 5 Mg Tablet 1 Tab PO 0900,1300,1700 Zyprexa Zydis (Olanzapine) 5 Mg Tab.rapdis 2.5 Mg PO Q2HR PRN Analgesic [place] (Methyl Salicylate/Menthol) 28 Gm Oint...g. 1 Rogelio TP QID PRN Milk Of Magnesia (Magnesium Hydroxide) 2,400 Mg/10 Ml Oral.susp 2,400 Mg PO HS PRN Advanced Antacid Liquid (Mag Hydrox/Al Hydrox/Simeth) 355 Ml Oral.susp 15 Ml PO QID PRN Depakote Er (Divalproex Sodium) 500 Mg Tab.er.24h 2 Tab PO QHS Benztropine Mesylate 1 Mg Tablet 1 Mg PO HS Klor-Con M20 (Potassium Chloride) 20 Meq Tab.er.prt 20 Meq PO DAILY Levoxyl (Levothyroxine Sodium) 88 Mcg Tablet 88 Mcg PO DAILY06 Sennosides 8.6 Mg Tablet 8.6 Mg PO BID PRN Tylenol (Acetaminophen) 325 Mg Tablet 650 Mg PO PRN Q4HRS PRN Eucerin Creme (Mineral Oil/Petrolatum,White) 120 Gm Cream..g. 120 Gm TP HS Lasix (Furosemide) 80 Mg Tablet 80 Mg PO DAILY Vitamin D2 (Ergocalciferol (Vitamin D2)) 50,000 Unit Capsule 50,000 Unit PO WEEKLY Lantus Solostar (Insulin Glargine,Hum.rec.anlog) 100 Unit/1 Ml Insuln.pen 25 Unit SQ QHS Melatonin 3 Mg Tablet 6 Mg PO HS Mirtazapine 15 Mg Tablet 15 Mg PO HS I have reviewed the current psychotropics carefully including drug interactions. Risk benefit ratio favors no change other than as noted in my dictated progress note. Diagnosis: Problems: (1) Anxiety disorder (2) Dementia in Alzheimer's disease with delusions (3) Schizoaffective disorder, chronic condition with acute exacerbation (4) Impulse control disorder FORTUNATO ECHEVARRIA MD Nov 04, 2018 22:30
[2018-11-04] MEDS: diphenhydrAMINE HCL 25 MG CAPSULE PO PRN (23:25)
[2018-11-05] MEDS: LEVOTHYROXINE 88 MCG TABLET PO SCH (06:03)
[2018-11-05 06:09] VITALS: BP 147/84
[2018-11-05] MEDS: POTASSIUM CHLORIDE 20 MEQ TABLET.ER. PO SCH (07:49)
[2018-11-05] MEDS: busPIRone 5 MG TABLET. PO SCH ×2 (07:50→11:55)
[2018-11-05] MEDS: FUROSEMIDE 80 MG TABLET PO SCH (07:50)
[2018-11-05] MEDS: INSULIN LISPRO 300 UNITS/3 ML INSULN.PEN. SQ SCH ×2 (08:00→11:53)
[2018-11-05] MEDS: ACETAMINOPHEN 325 MG TABLET PO PRN (10:46)
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
--- NOTE | 2018-11-05 22:25 | PDOC ---
Exam Note: Christopher Note: Please also refer to the separate dictated note~for this date of service dictated separately.~Patient seen individually. Discussed the patient with Nursing staff reviewed the chart.~Reviewed interim history and current functioning. Reviewed vital signs,~Labs/ Radiology~and current medications noted below. Continue current treatment with the changes noted in the dictated addendum note Assessment: Vital Signs: Vital Signs Date Time Temp Pulse Resp B/P (MAP) Pulse Ox O2 Delivery O2 Flow Rate FiO2 11/05/18 06:09 97.5 63 22 147/84 (105) 97 11/01/18 16:59 Room Air I&O Intake and Output 11/05/18 07:00 Intake Total 1800 ml Balance 1800 ml Intake Oral 1800 ml Labs: Laboratory Tests Test 11/05/18 07:18 11/05/18 11:38 Glucose (Fingerstick) 93 mg/dL (70-99) 133 mg/dL (70-99) H Current Medications: Meds: Current Medications Acetaminophen (Tylenol) 650 mg PRN Q4HRS PRN PO PAIN Last administered on 10:46; Start 10/20/18 at 21:45; Stop 11/05/18 at 16:30; Status DC Insulin Glargine (Lantus) 10 units QHS SQ ; Start 10/21/18 at 21:00; Stop at 21:00; Status DC Levothyroxine Sodium (Synthroid) 88 mcg DAILY06 PO Last administered on 06:03; Start 10/21/18 at 06:00; Stop 11/05/18 at 16:30; Status DC Multi-Ingred Cream/Lotion/Oil/ Oint (Hydrocerin) 1 rogelio HS TP Last administered on 11/04/18 20:19; Start 10/21/18 at 21:00; Stop 11/05/18 at 16:30; Status DC Potassium Chloride (Klor-Con) 20 meq DAILY PO Last administered on 11/05/18at 07 :49; Start 10/21/18 at 09:00; Stop 11/05/18 at 16:30; Status DC Lactobacillus Rhamnosus (Culturelle) 1 cap DAILY PO Last administered on at 20:18; Start 10/21/18 at 09:00; Stop 11/05/18 at 16:30; Status DC Cephalexin HCl (Keflex) 500 mg QID PO Last administered on 11/03/18 08:40; Start 10/21/18 at 09:00; Stop 11/03/18 at 16:03; Status DC Vitamin D (Vitamin D3) 50,000 unit WEEKLY PO Last administered on 11/03/18 08: 40; Start 10/27/18 at 09:00; Stop 11/05/18 at 16:30; Status DC Furosemide (Lasix) 80 mg DAILY PO Last administered on 11/05/18 07:50; Start 10/21/18 at 09:00; Stop 11/05/18 at 16:30; Status DC Levofloxacin (Levaquin) 750 mg DAILY06 PO Last administered on 10/21/18 05:52; Start 10/21/18 at 06:00; Stop 10/21/18 at 18:06; Status DC Sennosides (Senna) 8.6 mg PRN BID PRN PO CONSTIPATION Last administered on 09:26; Start 10/20/18 at 21:45; Stop 11/05/18 at 16:30; Status DC Clonazepam (KlonoPIN) 0.5 mg PRN Q6HRS PRN PO ANXIETY / AGITATION Last administered on 11/02/18 09:16; Start 10/20/18 at 21:45; Stop 11/03/18 at 08:03 ; Status DC Melatonin 6 mg HS PO Last administered on 11/04/18 20:19; Start 10/21/18 at 21: 00; Stop 11/05/18 at 16:30; Status DC Mirtazapine (Remeron) 15 mg QHS PO Last administered on 11/04/18 20:19; Start 10/21/18 at 21:00; Stop 11/05/18 at 16:30; Status DC Ziprasidone (Geodon) 60 mg BID PO Last administered on 10/22/18 09:10; Start at 09:00; Stop 10/22/18 at 16:18; Status DC Acetaminophen (Tylenol) 650 mg PRN Q6HRS PRN PO PAIN / TEMP; Start 10/20/18 at 22:30; Status UNV Multi-Ingredient Ointment (Analgesic [place]) 1 rogelio PRN QID PRN TP MUSCLE PAIN; Start 10/20/18 at 22:30; Stop 11/05/18 at 16:30; Status DC Al Hydroxide/Mg Hydroxide (Mylanta Plus Xs) 15 ml PRN AFTMEALHC PRN PO DYSPEPSIA; Start 10/20/18 at 22:30; Stop 11/05/18 at 16:30; Status DC Magnesium Hydroxide (Milk Of Magnesia) 2,400 mg PRN QHS PRN PO CONSTIPATION; Start 10/20/18 at 22:30; Stop 11/05/18 at 16:30; Status DC Insulin Glargine (Lantus) 10 units QHS SQ Last administered on 10/23/18at 20:14; Start 10/20/18 at 23:50; Stop 10/24/18 at 14:52; Status DC Insulin Glargine (Lantus) 300 units STK-MED ONCE SQ ; Start 10/20/18 at 23:49; Stop 10/20/18 at 23:51; Status DC Divalproex Sodium (Depakote Er) 500 mg QHS PO Last administered on 10/23/18 20: 09; Start 10/21/18 at 21:00; Stop 10/24/18 at 17:07; Status DC Penicillin G Benzathine (Bicillin L-A) 1,200,000 unit WEEKLY IM Last administered on 10/28/18 13:33; Start 10/21/18 at 21:00; Stop 10/28/18 at 14:43 ; Status DC Ziprasidone (Geodon) 80 mg BID PO Last administered on 10/27/18at 19:38; Start 10/22/18 at 21:00; Stop 10/27/18 at 20:47; Status DC Trazodone HCl (Desyrel) 100 mg QHS PO Last administered on 10/24/18 20:34; Start 10/22/18 at 21:00; Stop 10/25/18 at 16:41; Status DC Olanzapine (ZyPREXA ZYDIS) 5 mg PRN Q2HR PRN PO PSYCHOSIS/AGITATION Last administered on 11/01/18 18:13; Start 10/22/18 at 18:30; Stop 11/05/18 at 16:30 ; Status DC Insulin Glargine (Lantus) 15 units QHS SQ Last administered on 11/03/18 19:52 ; Start 10/24/18 at 21:00; Stop 11/04/18 at 19:28; Status DC Divalproex Sodium (Depakote Er) 1,000 mg QHS PO Last administered on 11/04/18 20:19; Start 10/24/18 at 21:00; Stop 11/05/18 at 16:30; Status DC Benztropine Mesylate (Cogentin) 0.5 mg QHS PO Last administered on 10/27/18at 19 :38; Start 10/24/18 at 21:00; Stop 10/27/18 at 20:47; Status DC Diphenhydramine HCl (Benadryl) 25 mg PRN Q4HRS PRN PO ITCHING Last administered on 11/04/18 23:25; Start 10/24/18 at 23:30; Stop 11/05/18 at 16:30 ; Status DC Trazodone HCl (Desyrel) 150 mg QHS PO Last administered on 11/04/18 20:18; Start 10/25/18 at 21:00; Stop 11/05/18 at 16:30; Status DC Benztropine Mesylate (Cogentin) 1 mg QHS PO Last administered on 11/04/18 20: 19; Start 10/27/18 at 21:00; Stop 11/05/18 at 16:30; Status DC Risperidone (RisperDAL) 0.5 mg HS PO Last administered on 10/28/18at 20:03; Start 10/27/18 at 21:00; Stop 10/29/18 at 16:52; Status DC Penicillin G Benzathine (Bicillin L-A) 2,400,000 unit WEEKLY IM Last administered on 11/04/18at 08:36; Start 11/04/18 at 09:00; Stop 11/05/18 at 16:30 ; Status DC Penicillin G Benzathine (Bicillin L-A) 1,200,000 unit 1X ONCE IM ; Start at 15:00; Stop 10/28/18 at 15:06; Status DC Penicillin G Benzathine (Bicillin L-A) 1,200,000 unit 1X ONCE IM Last administered on 10/29/18at 08:04; Start 10/28/18 at 21:00; Stop 10/28/18 at 21:01 ; Status DC Risperidone (RisperDAL) 1 mg HS PO Last administered on 11/04/18at 20:19; Start 10/29/18 at 21:00; Stop 11/05/18 at 16:30; Status DC Buspirone HCl (Buspar) 5 mg TID@0900,1300,1700 PO Last administered on at 11:55; Start 11/04/18 at 09:00; Stop 11/05/18 at 16:30; Status DC Insulin Glargine (Lantus) 25 units QHS SQ Last administered on 11/04/18at 20:22 ; Start 11/04/18 at 21:00; Stop 11/05/18 at 16:30; Status DC Insulin Human Lispro (HumaLOG) 0-7 UNITS TIDWMEALS SQ ; Start 11/05/18 at 08:00 ; Stop 11/05/18 at 16:30; Status DC Dextrose 12.5 gm PRN Q15MIN PRN IV SEE COMMENTS; Start 11/04/18 at 19:30; Stop 11/05/18 at 16:30; Status DC Active Scripts Active Reported Humalog (Insulin Lispro) 100 Unit/1 Ml Insuln.pen 100 Unit SQ TIDWMEALS Bicillin L-A (Penicillin G Benzathine) 2,400,000 Unit/4 Ml Disp.syrin 2,400,000 Unit IM ONCE Trazodone Hcl 150 Mg Tablet 1 Tab PO QHS Risperdal (Risperidone) 1 Mg Tablet 1 Mg PO QHS Benadryl (Diphenhydramine Hcl) 25 Mg Capsule 1 Cap PO PRN Q4HRS PRN Buspirone Hcl 5 Mg Tablet 1 Tab PO 0900,1300,1700 Zyprexa Zydis (Olanzapine) 5 Mg Tab.rapdis 2.5 Mg PO Q2HR PRN Analgesic [place] (Methyl Salicylate/Menthol) 28 Gm Oint...g. 1 Rogelio TP QID PRN Milk Of Magnesia (Magnesium Hydroxide) 2,400 Mg/10 Ml Oral.susp 2,400 Mg PO HS PRN Advanced Antacid Liquid (Mag Hydrox/Al Hydrox/Simeth) 355 Ml Oral.susp 15 Ml PO QID PRN Depakote Er (Divalproex Sodium) 500 Mg Tab.er.24h 2 Tab PO QHS Benztropine Mesylate 1 Mg Tablet 1 Mg PO HS Klor-Con M20 (Potassium Chloride) 20 Meq Tab.er.prt 20 Meq PO DAILY Levoxyl (Levothyroxine Sodium) 88 Mcg Tablet 88 Mcg PO DAILY06 Sennosides 8.6 Mg Tablet 8.6 Mg PO BID PRN Tylenol (Acetaminophen) 325 Mg Tablet 650 Mg PO PRN Q4HRS PRN Eucerin Creme (Mineral Oil/Petrolatum,White) 120 Gm Cream..g. 120 Gm TP HS Lasix (Furosemide) 80 Mg Tablet 80 Mg PO DAILY Vitamin D2 (Ergocalciferol (Vitamin D2)) 50,000 Unit Capsule 50,000 Unit PO WEEKLY Lantus Solostar (Insulin Glargine,Hum.rec.anlog) 100 Unit/1 Ml Insuln.pen 25 Unit SQ QHS Melatonin 3 Mg Tablet 6 Mg PO HS Mirtazapine 15 Mg Tablet 15 Mg PO HS I have reviewed the current psychotropics carefully including drug interactions. Risk benefit ratio favors no change other than as noted in my dictated progress note. Diagnosis: Problems: (1) Anxiety disorder (2) Dementia in Alzheimer's disease with delusions (3) Schizoaffective disorder, chronic condition with acute exacerbation (4) Impulse control disorder FORTUNATO ECHEVARRIA MD Nov 05, 2018 22:24
--- NOTE | 2018-11-05 22:38 | PN ---
DATE: 11/03/2018 PSYCHIATRIC PROGRESS NOTE This late entry 11/03/2018 covers elements not covered in my initial note. SUBJECTIVE: I met with the patient in the evening. The patient slept 6-1/2 hours previous night. Per nursing report, she has been extremely labile in her mood, delusional, tearful. She has completed a course of Keflex for pneumonia, anxious. REVIEW OF SYSTEMS: Ambulation impaired, in wheelchair. No CV, , pulmonary, eye system symptoms on review, has vague somatic symptoms. MENTAL STATUS EXAM: Oriented to herself and situation. Speech coherent, rapid at times, low in volume. Abstraction fair, computation impaired, language function intact, attention span short. Mood and affect, anxious, labile, paranoid. LABORATORY DATA: Reviewed. IMPRESSION: Bipolar 1 disorder, mixed with psychotic features. Rest unchanged. PLAN: Start BuSpar 5 mg 3 times a day. Rest unchanged per initial note. MAN Kati ECHEVARRIA MD DR: JACKIE/jason JOB#: [id number] / [id number]
--- NOTE | 2018-11-05 22:42 | PN ---
DATE: 11/04/2018 PSYCHIATRIC PROGRESS NOTE This late entry 11/04/2018 covers elements not covered in my initial note. SUBJECTIVE: I met with the patient in the evening. The patient slept 5-3/4 hours previous evening. She remains somewhat anxious, labile in her mood, but less paranoid. REVIEW OF SYSTEMS: Ambulation impaired, in wheelchair. No CV, , pulmonary, eye system symptoms on review. MENTAL STATUS EXAM: Oriented to herself and situation. Speech coherent, low in volume. Abstraction fair, computation impaired, language function intact. Mood and affect less labile. LABORATORY DATA: Reviewed. IMPRESSION: Unchanged from initial note. PLAN: No change from initial note. Possible discharge 11/05/2018. MAN Kati ECHEVARRIA MD DR: JACKIE/jaosn JOB#: [id number] / [id number]
== END 2018-11-05 16:10 | DRG 885 ==
LOC: GEROPSY 17:30
PROVIDERS: ADMIT Psychiatry & Neurology Psychiatry; ATTEND Psychiatry & Neurology Psychiatry
DX: F25.0 Schizoaffective disorder, bipolar type (principal); E43 Unspecified severe protein-calorie malnutrition; F02.80 Dementia in other diseases classified elsewhere, unspecified severity, without behavioral disturbance, psychotic disturbance, mood disturbance, and anxiety; G30.9 Alzheimer's disease, unspecified; F63.9 Impulse disorder, unspecified; A53.9 Syphilis, unspecified; F41.9 Anxiety disorder, unspecified; E03.9 Hypothyroidism, unspecified; E11.9 Type 2 diabetes mellitus without complications; I10 Essential (primary) hypertension; Z79.899 Other long term (current) drug therapy; Z88.2 Allergy status to sulfonamides; Z68.26 Body mass index [BMI] 26.0-26.9, adult
CPT/HCPCS: 36415; 80048; 80053; 80061; 80164; 82306; 82947; 83036; 83540; 83550; 83735; 84436; 84443; 84480; 85025; 86592; 86593; 93005; J0561; J1815; Q0163; 97110; 97116; 97530; 97535